=== PATIENT | male | born 1985 | race African-American/Black ===

== ENCOUNTER 2019-05-03 09:49 | Emergency (ER) | payer SELFPAY ==
[2019-05-03 10:55] LABS: Absolute Lymphocytes (CBC) 0.5 K/uL (0.7-4.9); Basophils % 0.2 % (0-1.3); Lymphocytes % 8.1 % (15.3-44.8); MPV 7.8 fL (7.6-11.3); RBC Red Blood Cell Count 4.58 M/uL (4.33-5.43)
[2019-05-03] MEDS ORDERED: KETOROLAC 30 MG/ML INJ ONE (11:04)
[2019-05-03] MEDS ORDERED: dexAMETHasone 4 MG/ML VIAL ONE (11:04)
[2019-05-03] MEDS ORDERED: NA CHLORIDE 0.9% 1,000 ML ONE (11:05)
[2019-05-03 11:12] LABS: ALT/SGPT 20 U/L (12-78); AST/SGOT 19 U/L (15-37); Albumin 3.8 g/dL (3.4-5.0); Alkaline Phosphatase 72 U/L (45-117); BUN Blood Urea Nitrogen 8 mg/dL (7-18); Bicarbonate 30 mmol/L (21-32); Bilirubin Direct 0.1 mg/dL (0-0.2); Bilirubin Total 0.2 mg/dL (0.2-1.0); Glucose Level 83 mg/dL (74-106); Potassium 4.3 mmol/L (3.5-5.1); Protein, Total 7.1 g/dL (6.4-8.2); Sodium Level 138 mmol/L (136-145)
--- NOTE | 2019-05-03 11:50 | EDPHYS ---
Physician Documentation [facility] Name: Elmer Sanderson Age: 33 yrs Sex: Male : 1985 Arrival Date: 05/03/2019 Time: 09:53 Bed 19 Private MD: ED Physician Esdras Cates HPI: 05/03 10:52 This 33 yrs old Black Male presents to ER via Ambulatory with complaints of Neck Pain, jr8 >24Hrs Old, Neck Swelling, Fever. 10:52 The patient or guardian complains of decreased range of motion, pain. The symptoms are jr8 located on the left trapezius and shoulder. Onset: The symptoms/episode began/occurred suddenly, 2 week(s) ago. Context: The neck injury/problem resulted from from unknown cause. Associated signs and symptoms: The patient has no apparent associated signs or symptoms. The pain does not radiate. Modifying factors: The symptoms are alleviated by nothing. the symptoms are aggravated by movement, pressure. Severity of symptoms: At their worst the symptoms were moderate, in the emergency department the symptoms are unchanged. The patient has not experienced similar symptoms in the past. The patient has not recently seen a physician. Patient stated that he was tensing and mireles left shoulder in odd position for prolonged period of time while getting a tattoo completed about two weeks ago. Now having pain to shoulder and back that will not go away. Stated that last night started to feel bad as well. Started with fever and flu like symptoms . Historical: - Allergies: 09:55 Codeine; rb1 - Home Meds: 09:55 None [Active]; rb1 - PMHx: 09:55 Asthma; Hypertension; rb1 - PSHx: 09:55 None; rb1 - Immunization history:: Adult Immunizations up to date. - Coronavirus screen:: The patient has NOT traveled to [place] in the past 14 days. The patient has NOT had contact with known/suspected case of Coronavirus?. - Social history:: Smoking status: Patient reports the use of cigarette tobacco products, smokes one pack cigarettes per day. - Ebola Screening: : Patient negative for fever greater than or equal to 101.5 degrees Fahrenheit, and additional compatible Ebola Virus Disease symptoms. ROS: 10:52 Eyes: Negative for injury, pain, redness, and discharge, Neck: Negative for injury, jr8 pain, and swelling, Cardiovascular: Negative for chest pain, palpitations, and edema, Respiratory: Negative for shortness of breath, cough, wheezing, and pleuritic chest pain, Abdomen/GI: Negative for abdominal pain, nausea, vomiting, diarrhea, and constipation, Skin: Negative for injury, rash, and discoloration, Neuro: Negative for headache, weakness, numbness, tingling, and seizure. 10:52 Constitutional: Positive for body aches, chills, fever. 10:52 ENT: Positive for rhinorrhea, sinus congestion. 10:52 Back: Positive for pain at rest, pain with movement, of the left trapezius and left scapular area. 10:52 MS/extremity: Positive for pain, tenderness, of the left shoulder . Exam: 10:52 Head/Face: Normocephalic, atraumatic. Eyes: Pupils equal round and reactive to light, jr8 extra-ocular motions intact. Lids and lashes normal. Conjunctiva and sclera are non-icteric and not injected. Cornea within normal limits. Periorbital areas with no swelling, redness, or edema. ENT: Nares patent. No nasal discharge, no septal abnormalities noted. Tympanic membranes are normal and external auditory canals are clear. Oropharynx with no redness, swelling, or masses, exudates, or evidence of obstruction, uvula midline. Mucous membranes moist. Neck: Trachea midline, no thyromegaly or masses palpated, and no cervical lymphadenopathy. Supple, full range of motion without nuchal rigidity, or vertebral point tenderness. No Meningismus. Chest/axilla: Normal chest wall appearance and motion. Nontender with no deformity. No lesions are appreciated. Cardiovascular: Regular rate and rhythm with a normal S1 and S2. No gallops, murmurs, or rubs. Normal PMI, no JVD. No pulse deficits. Respiratory: Lungs have equal breath sounds bilaterally, clear to auscultation and percussion. No rales, rhonchi or wheezes noted. No increased work of breathing, no retractions or nasal flaring. Abdomen/GI: Soft, non-tender, with normal bowel sounds. No distension or tympany. No guarding or rebound. No evidence of tenderness throughout. Skin: Warm, dry with normal turgor. Normal color with no rashes, no lesions, and no evidence of cellulitis. MS/ Extremity: Pulses equal, no cyanosis. Neurovascular intact. Full, normal range of motion. Neuro: Awake and alert, GCS 15, oriented to person, place, time, and situation. Cranial nerves II-XII grossly intact. Motor strength 5/5 in all extremities. Sensory grossly intact. Cerebellar exam normal. Normal gait. 10:52 Back: pain, that is moderate, of the left trapezius and left scapular area, ROM is painful, normal spinal alignment noted, CVA tenderness, is absent, muscle spasm, is appreciated in the left trapezius. Vital Signs: 09:55 BP 130 / 83; Pulse 89; Resp 17; Temp 98.4(O); Pulse Ox 100% on R/A; Weight 72.57 kg rb1 (R); Height 5 ft. 5 in. (165.10 cm) (R); Pain 10/10; 11:31 BP 104 / 70; Pulse 88; Resp 19; Pulse Ox 99% on R/A; rb1 12:15 BP 106 / 71; Pulse 83; Resp 18; Pulse Ox 99% on R/A; rb1 09:55 Body Mass Index 26.63 (72.57 kg, 165.10 cm) rb1 MDM: 09:56 Patient medically screened. jr8 11:30 Differential diagnosis: Cervical Raiculopathy cervical strain, cellulitis, muscle jr8 spasm. Data reviewed: vital signs, nurses notes, lab test result(s), Flu: positive. Data interpreted: Pulse oximetry: on room air is 100 %. Interpretation: normal. Counseling: I had a detailed discussion with the patient and/or guardian regarding: the historical points, exam findings, and any diagnostic results supporting the discharge/admit diagnosis, lab results, the need for outpatient follow up, a family practitioner, to return to the emergency department if symptoms worsen or persist or if there are any questions or concerns that arise at home. Response to treatment: the patient's symptoms have markedly improved after treatment, patient is well hydrated. 05/03 10:31 Order name: CBC with Diff 05/03 10:31 Order name: Basic Metabolic Panel; Complete Time: 11:19 05/03 10:31 Order name: LFT's; Complete Time: 11:05/03 10:31 Order name: Influenza Screen (a \T\ B); Complete Time: 11:30 05/03 10:57 Order name: CBC with Automated Diff EDUT 05/03 10:31 Order name: IV; Complete Time: 10:47 Administered Medications: 10:50 Drug: NS 0.9% 1000 ml Route: IV; Rate: 1000 ml; Site: right antecubital; rb1 11:56 Follow up: IV Status: Completed infusion rb1 10:50 Drug: TORadol - Ketorolac 15 mg Route: IVP; Site: right antecubital; rb1 11:00 Follow up: Response: No adverse reaction rb1 10:50 Drug: Decadron - Dexamethasone 10 mg Route: IVP; Site: right antecubital; rb1 11:05 Follow up: Response: No adverse reaction rb1 11:30 Drug: Robaxin 1 grams Route: IVPB; Infused Over: 1 hrs; Site: right antecubital; rb1 12:30 Follow up: Response: No adverse reaction; Pain is decreased; IV Status: Completed rb1 infusion Disposition: 13:05 Co-signature as Attending Physician, Esdras Cates MD. rn Disposition: 05/03/19 11:50 Discharged to Home. Impression: Influenza due to certain identified influenza viruses, Muscle spasm. - Condition is Stable. - Discharge Instructions: Influenza, Adult, Muscle Cramps and Spasms. - Prescriptions for Ibuprofen 800 mg Oral Tablet - take 1 tablet by ORAL route every 12 hours As needed take with food; 20 tablet. Robaxin 500 mg Oral Tablet - take 2 tablet by ORAL route every 6 hours As needed; 40 tablet. Tamiflu 75 mg Oral Capsule - take 1 capsule by ORAL route every 12 hours for 5 days; 10 capsule. Medrol (Saran) 4 mg Oral Tablets, Dose Pack - take 1 tablet by ORAL route as directed - follow package instructions; 1 packet. Albuterol Sulfate 90 mcg/actuation - inhale 1-2 puff by INHALATION route every 4-6 hours; 1 Inhaler. - Medication Reconciliation Form, Thank You Letter, Antibiotic Education, Prescription Opioid Use, Work release form form. - Follow up: Private Physician; When: 1 week; Reason: Recheck today's complaints, Continuance of care, Re-evaluation by your physician. - Problem is new. - Symptoms have improved. Signatures: Dispatcher [employer] [facility] Esdras Cates MD MD rn Roszak, Josh, PA PA jr8 Willow Rosales, RN RN rb1 Corrections: (The following items were deleted from the chart) 12:43 11:50 05/03/2019 11:50 Discharged to Home. Impression: Influenza due to certain rb1 identified influenza viruses; Muscle spasm. Condition is Stable. Forms are Medication Reconciliation Form, Thank You Letter, Antibiotic Education, Prescription Opioid Use. Follow up: Private Physician; When: 1 week; Reason: Recheck today's complaints, Continuance of care, Re-evaluation by your physician. Problem is new. Symptoms have improved. jr8
--- NOTE | 2019-05-03 11:50 | ER ---
Nurse's Notes [facility] Name: Elmer Sanderson Age: 33 yrs Sex: Male : 1985 Arrival Date: 05/03/2019 Time: 09:53 Bed 19 Private MD: Diagnosis: Influenza due to certain identified influenza viruses;Muscle spasm Presentation: 05/03 09:55 Presenting complaint: Patient states: Has had bodyaches for 3 weeks. Denies nausea, rb1 vomiting, diarrhea. reports fever, chills, sore throat. Transition of care: patient was not received from another setting of care. Onset of symptoms was April 11, 2019. Risk Assessment: Do you want to hurt yourself or someone else? Patient reports no desire to harm self or others. Initial Sepsis Screen: Does the patient meet any 2 criteria? No. Patient's initial sepsis screen is negative. Does the patient have a suspected source of infection? Yes: Productive cough/pneumonia. Care prior to arrival: None. 09:55 Method Of Arrival: Ambulatory rb1 09:55 Acuity: JANICE 3 rb1 Triage Assessment: 09:55 General: Appears in no apparent distress. comfortable, Behavior is calm, cooperative, rb1 Reports chills for fever for feeling ill for x 3 weeks. Pain: Complains of pain in left shoulder, sore throat. EENT: Reports pain in throat. Neuro: Level of Consciousness is awake, alert, obeys commands, Oriented to person, place, time, situation. Cardiovascular: Capillary refill < 3 seconds is brisk in bilateral fingers. Respiratory: Reports shortness of breath cough that is productive, yellow sputum. GI: No signs and/or symptoms were reported involving the gastrointestinal system. : No signs and/or symptoms were reported regarding the genitourinary system. Derm: Skin is dry, Skin is normal, Skin temperature is warm Parent/caregiver reports the patient having He got a new tattoo three weeks ago and now he has pain in his left shoulder and it hurts to move his arm. Musculoskeletal: Reports pain in left shoulder Pain is 10 out of 10 on a pain scale. Historical: - Allergies: : Codeine; rb1 - Home Meds: : None [Active]; rb1 - PMHx: : Asthma; Hypertension; rb1 - PSHx: : None; rb1 - Immunization history:: Adult Immunizations up to date. - Coronavirus screen:: The patient has NOT traveled to [place] in the past 14 days. The patient has NOT had contact with known/suspected case of Coronavirus?. - Social history:: Smoking status: Patient reports the use of cigarette tobacco products, smokes one pack cigarettes per day. - Ebola Screening: : Patient negative for fever greater than or equal to 101.5 degrees Fahrenheit, and additional compatible Ebola Virus Disease symptoms. Screenin:55 Abuse screen: Denies threats or abuse. Nutritional screening: No deficits noted. rb1 Tuberculosis screening: No symptoms or risk factors identified. Fall Risk None identified. Assessment: 09:55 General: See triage assessment. rb1 10:50 Reassessment: Patient appears in no apparent distress at this time. No changes from rb1 previously documented assessment. 11:34 Reassessment: Patient appears in no apparent distress at this time. Patient and/or rb1 family updated on plan of care and expected duration. Pain level reassessed. Patient is alert, oriented x 3, equal unlabored respirations, skin warm/dry/pink. 11:54 Reassessment: Discharge pending due to Robaxin infusing. rb1 12:15 Reassessment: Patient appears in no apparent distress at this time. Patient and/or rb1 family updated on plan of care and expected duration. Pain level reassessed. Patient is alert, oriented x 3, equal unlabored respirations, skin warm/dry/pink. Pt. is laughing with his girlfriend. Vital Signs: 09:55 BP 130 / 83; Pulse 89; Resp 17; Temp 98.4(O); Pulse Ox 100% on R/A; Weight 72.57 kg rb1 (R); Height 5 ft. 5 in. (165.10 cm) (R); Pain 10/10; 11:31 BP 104 / 70; Pulse 88; Resp 19; Pulse Ox 99% on R/A; rb1 12:15 BP 106 / 71; Pulse 83; Resp 18; Pulse Ox 99% on R/A; rb1 09:55 Body Mass Index 26.63 (72.57 kg, 165.10 cm) [facility] ED Course: 09:53 Patient arrived in ED. fj1 09:55 Willow Rosales, RN is Primary Nurse. rb1 09:55 Arm band placed on right wrist. rb1 09:55 Patient has correct armband on for positive identification. Bed in low position. Call rb1 light in reach. Side rails up X 1. Pulse ox on. NIBP on. Warm blanket given. 09:56 Garrick Vásquez PA is PHCP. jr8 09:56 Esdras Cates MD is Attending Physician. jr8 10:05 Triage completed. rb1 10:43 Initial lab(s) drawn, by me, sent to lab. Flu and/or RSV swab sent to lab. Inserted dh3 saline lock: 20 gauge in right antecubital area, using aseptic technique. Blood collected. 12:35 No provider procedures requiring assistance completed. rb1 12:35 IV discontinued, intact, bleeding controlled, No redness/swelling at site. Pressure rb1 dressing applied. Administered Medications: 10:50 Drug: NS 0.9% 1000 ml Route: IV; Rate: 1000 ml; Site: right antecubital; rb1 11:56 Follow up: IV Status: Completed infusion rb1 10:50 Drug: TORadol - Ketorolac 15 mg Route: IVP; Site: right antecubital; rb1 11:00 Follow up: Response: No adverse reaction rb1 10:50 Drug: Decadron - Dexamethasone 10 mg Route: IVP; Site: right antecubital; rb1 11:05 Follow up: Response: No adverse reaction rb1 11:30 Drug: Robaxin 1 grams Route: IVPB; Infused Over: 1 hrs; Site: right antecubital; rb1 12:30 Follow up: Response: No adverse reaction; Pain is decreased; IV Status: Completed rb1 infusion Outcome: 11:50 Discharge ordered by . jr8 12:35 Discharged to home ambulatory, with significant other. rb1 12:35 Condition: stable 12:35 Discharge instructions given to patient, Instructed on discharge instructions, follow up and referral plans. medication usage. 12:35 Patient left the ED. rb1 Signatures: Garrick Vásquez PA PA jr8 Willow Rosales RN RN [facility] Annmarie Moon 3 Cj Nava fj1 Corrections: (The following items were deleted from the chart) 12:43 12:43 Patient left the ED. rb1 rb1
[2019-05-03 12:58] VITALS: TEMP 98.4
[2019-05-03 13:04] VITALS: BP 106/71; O2SAT 99
== END 2019-05-03 12:43 | disposition home or self-care (01) ==
LOC: ER 09:49
DX: J10.1 Influenza due to other identified influenza virus with other respiratory manifestations (principal); M62.838 Other muscle spasm; I10 Essential (primary) hypertension; F17.210 Nicotine dependence, cigarettes, uncomplicated; Z88.5 Allergy status to narcotic agent
CPT/HCPCS: 36415; 80048; 80076; 85025; 87804; 96361; 96365; 96375; 99284; J2800; J7030

== ENCOUNTER 2019-11-21 01:47 | Emergency (ER) | payer SELFPAY ==
[2019-11-21] MEDS ORDERED: KETOROLAC 30 MG/ML INJ ONE (02:18)
[2019-11-21] MEDS ORDERED: NA CHLORIDE 0.9% 1,000 ML ONE (02:18)
[2019-11-21] MEDS ORDERED: DIPHENHYDRAMINE 50 MG/ML VIAL ONE (02:18)
[2019-11-21] MEDS ORDERED: ONDANSETRON 4 MG/2 ML VIAL ONE (02:18)
--- NOTE | 2019-11-21 03:38 | EDPHYS ---
Physician Documentation [facility] Name: Elmer Sanderson Age: 34 yrs Sex: Male : 1985 Arrival Date: 11/21/2019 Time: 01:51 Bed 18 Private MD: ED Physician Ash Lora HPI: 11/20 03:05 This 34 yrs old Black Male presents to ER via Wheelchair with complaints of Headache. tw4 03:05 The patient complains of pain to the left orthodoxy. The patient describes the headache as tw4 pounding, a pressure. Onset: The symptoms/episode began/occurred just prior to arrival. 03:06 Associated signs and symptoms: The patient has no apparent associated signs or tw4 symptoms. Severity of symptoms: At its worst the pain was severe, in the emergency department the pain is unchanged. Headache History: The patient has had previous headaches and this one is similar to previous episodes, and this one is more severe than previous episodes. The symptoms are alleviated by nothing. the symptoms are aggravated by lights, movement, noise. The patient has not experienced similar symptoms in the past. Historical: - Allergies: 02:06 Codeine; lp1 - Home Meds: 02:06 Albuterol Inhl [Active]; lp1 - PMHx: 02:06 Asthma; Hypertension; lp1 - PSHx: 02:06 None; lp1 - Immunization history:: Adult Immunizations up to date. - Social history:: Smoking status: Patient reports the use of cigarette tobacco products, smokes one-half pack cigarettes per day. ROS: 03:06 Constitutional: Negative for fever, chills, and weight loss, Eyes: Negative for injury, tw4 pain, redness, and discharge, Cardiovascular: Negative for chest pain, palpitations, and edema, Respiratory: Negative for shortness of breath, cough, wheezing, and pleuritic chest pain, Abdomen/GI: Negative for abdominal pain, nausea, vomiting, diarrhea, and constipation, Back: Negative for injury and pain, MS/Extremity: Negative for injury and deformity, Skin: Negative for injury, rash, and discoloration. 03:06 Neuro: Positive for headache, Negative for altered mental status, dizziness, gait disturbance, numbness, seizure activity, speech changes, syncope, near syncope, tingling, tinnitus, tremor, visual changes, weakness. Exam: 03:06 Constitutional: This is a well developed, well nourished patient who is awake, alert, tw4 and in no acute distress. Head/Face: Normocephalic, atraumatic. Chest/axilla: Normal chest wall appearance and motion. Nontender with no deformity. No lesions are appreciated. Cardiovascular: Regular rate and rhythm with a normal S1 and S2. No gallops, murmurs, or rubs. Normal PMI, no JVD. No pulse deficits. Respiratory: Lungs have equal breath sounds bilaterally, clear to auscultation and percussion. No rales, rhonchi or wheezes noted. No increased work of breathing, no retractions or nasal flaring. Abdomen/GI: Soft, non-tender, with normal bowel sounds. No distension or tympany. No guarding or rebound. No evidence of tenderness throughout. Skin: Warm, dry with normal turgor. Normal color with no rashes, no lesions, and no evidence of cellulitis. MS/ Extremity: Pulses equal, no cyanosis. Neurovascular intact. Full, normal range of motion. Neuro: Awake and alert, GCS 15, oriented to person, place, time, and situation. Cranial nerves II-XII grossly intact. Motor strength 5/5 in all extremities. Sensory grossly intact. Cerebellar exam normal. Normal gait. Vital Signs: 02:02 BP 137 / 88; Pulse 92; Resp 18; Temp 97.7(TE); Pulse Ox 100% on R/A; Weight 73.03 kg lp1 (R); Pain 10/10; 02:45 BP 137 / 88; Pulse 86; Resp 16; Pulse Ox 100% on R/A; jb4 Yusef Coma Score: 03:06 Eye Response: spontaneous(4). Verbal Response: oriented(5). Motor Response: obeys tw4 commands(6). Total: 15. MDM: 02:47 Patient medically screened. tw4 03:06 Data reviewed: vital signs, nurses notes. Data interpreted: Pulse oximetry: tw4 Interpretation: normal. Administered Medications: 02:12 Drug: NS 0.9% 1000 ml Route: IV; Rate: 1000 ml; Site: right forearm; jb4 03:00 Follow up: Response: No adverse reaction; IV Status: Completed infusion; IV Intake: jb4 1000ml 02:13 Drug: TORadol 30 mg Route: IVP; Site: right forearm; jb4 03:11 Follow up: Response: No adverse reaction; Pain is decreased jb4 02:14 Drug: Benadryl 25 mg Route: IVP; Site: right forearm; jb4 03:11 Follow up: Response: No adverse reaction; Pain is decreased jb4 02:15 Drug: Zofran (Ondansetron) 4 mg Route: IVP; Site: right forearm; jb4 03:11 Follow up: Response: No adverse reaction jb4 Disposition: 11/21/19 03:37 Discharged to Home. Impression: Migraine without aura, not intractable. - Condition is Stable. - Discharge Instructions: Migraine Headache. - Prescriptions for Fiorinal 50- 325-40 mg Oral Capsule - take 1 capsule by ORAL route every 4 hours As needed - not to exceed 6 capsules per day; 20 capsule. Zofran 4 mg Oral Tablet - take 1 tablet by ORAL route every 12 hours As needed; 6 tablet. - Medication Reconciliation Form, Thank You Letter, Antibiotic Education, Prescription Opioid Use form. - Follow up: Private Physician; When: Upon discharge from the Emergency Department; Reason: Recheck today's complaints, Continuance of care, Re-evaluation by your physician. - Problem is new. - Symptoms have improved. Signatures: Loretta Jimenez RN RN lp1 Elijah Martins RN RN jb4 Ash Lora MD MD tw4 Corrections: (The following items were deleted from the chart) 04:02 03:37 11/21/2019 03:37 Discharged to Home. Impression: Migraine without aura, not jb4 intractable. Condition is Stable. Forms are Medication Reconciliation Form, Thank You Letter, Antibiotic Education, Prescription Opioid Use. Follow up: Private Physician; When: Upon discharge from the Emergency Department; Reason: Recheck today's complaints, Continuance of care, Re-evaluation by your physician. Problem is new. Symptoms have improved. tw4
--- NOTE | 2019-11-21 03:38 | ER ---
Nurse's Notes [facility] Name: Elmer Sanderson Age: 34 yrs Sex: Male : 1985 Arrival Date: 11/21/2019 Time: 01:51 Bed 18 Private MD: Diagnosis: Migraine without aura, not intractable Presentation: 11/20 02:02 Chief complaint: Patient states: Woken up out of sleep with headache about 30 minutes lp1 ago; States hx of migraines, this episode more severe; complaint of light and noise sensitivity. Coronavirus screen: Client denies travel out of the [place] in the last 14 days. At this time, the client does not indicate any symptoms associated with coronavirus-19. Ebola Screen: No symptoms or risks identified at this time. Initial Sepsis Screen: Does the patient meet any 2 criteria? No. Patient's initial sepsis screen is negative. Does the patient have a suspected source of infection? No. Patient's initial sepsis screen is negative. Risk Assessment: Do you want to hurt yourself or someone else? Patient reports no desire to harm self or others. Onset of symptoms was November 21, 2019 at 01:30. 02:02 Method Of Arrival: Wheelchair lp1 02:02 Acuity: JANICE 3 lp1 Historical: - Allergies: 02:06 Codeine; lp1 - Home Meds: 02:06 Albuterol Inhl [Active]; lp1 - PMHx: 02:06 Asthma; Hypertension; lp1 - PSHx: 02:06 None; lp1 - Immunization history:: Adult Immunizations up to date. - Social history:: Smoking status: Patient reports the use of cigarette tobacco products, smokes one-half pack cigarettes per day. Screenin:07 Abuse screen: Denies threats or abuse. Denies injuries from another. Nutritional lp1 screening: No deficits noted. Tuberculosis screening: No symptoms or risk factors identified. Fall Risk None identified. Assessment: 02:00 General: Appears in no apparent distress. uncomfortable, Behavior is cooperative, jb4 anxious, crying. Pain: Complains of pain in right voodoo, left voodoo and neck Pain does not radiate. Pain currently is 10 out of 10 on a pain scale. Quality of pain is described as throbbing. Neuro: Level of Consciousness is awake, alert, obeys commands, Oriented to person, place, time, situation. Cardiovascular: Patient's skin is warm and dry. Respiratory: Airway is patent Respiratory effort is even, unlabored, Respiratory pattern is regular, symmetrical. GI: No signs and/or symptoms were reported involving the gastrointestinal system. : No signs and/or symptoms were reported regarding the genitourinary system. EENT: No signs and/or symptoms were reported regarding the EENT system. Derm: Skin is intact, Skin is dry, Skin is normal, Skin temperature is warm. Musculoskeletal: Circulation, motion, and sensation intact. Range of motion: intact in all extremities. 02:44 Reassessment: Patient and/or family updated on plan of care and expected duration. Pain jb4 level reassessed. PT is resting comfortably in bed with eyes closed, respirations are even and unlabored with no s/s of pain or distress noted. 03:30 Reassessment: Patient appears in no apparent distress at this time. Patient and/or jb4 family updated on plan of care and expected duration. Pain level reassessed. Patient is alert, oriented x 3, equal unlabored respirations, skin warm/dry/pink. Pt reports feeling much better and is now able to open his eyes without pain. Patient states feeling better. Patient states symptoms have improved. 04:00 Reassessment: Patient appears in no apparent distress at this time. Patient and/or jb4 family updated on plan of care and expected duration. Pain level reassessed. Patient is alert, oriented x 3, equal unlabored respirations, skin warm/dry/pink. Pt verbalized understanding of D/c and follow up instructions. Denies questions or concerns. Given a list of family providers in the area, assisted to vehicle via wheelchair. Vital Signs: 02:02 BP 137 / 88; Pulse 92; Resp 18; Temp 97.7(TE); Pulse Ox 100% on R/A; Weight 73.03 kg lp1 (R); Pain 10/10; 02:45 BP 137 / 88; Pulse 86; Resp 16; Pulse Ox 100% on R/A; jb4 Yusef Coma Score: 03:06 Eye Response: spontaneous(4). Verbal Response: oriented(5). Motor Response: obeys tw4 commands(6). Total: 15. ED Course: 01:51 Patient arrived in ED. cf2 01:52 Madison, Ash, MD is Attending Physician. tw4 02:00 Inserted saline lock: 20 gauge in right forearm, using aseptic technique. jb4 02:04 Triage completed. lp1 02:04 Arm band placed on. lp1 02:07 Elijah Martins, RN is Primary Nurse. jb4 02:07 Patient has correct armband on for positive identification. lp1 04:00 No provider procedures requiring assistance completed. IV discontinued, intact, jb4 bleeding controlled, No redness/swelling at site. Pressure dressing applied. Administered Medications: 02:12 Drug: NS 0.9% 1000 ml Route: IV; Rate: 1000 ml; Site: right forearm; jb4 03:00 Follow up: Response: No adverse reaction; IV Status: Completed infusion; IV Intake: jb4 1000ml 02:13 Drug: TORadol 30 mg Route: IVP; Site: right forearm; jb4 03:11 Follow up: Response: No adverse reaction; Pain is decreased jb4 02:14 Drug: Benadryl 25 mg Route: IVP; Site: right forearm; jb4 03:11 Follow up: Response: No adverse reaction; Pain is decreased jb4 02:15 Drug: Zofran (Ondansetron) 4 mg Route: IVP; Site: right forearm; jb4 03:11 Follow up: Response: No adverse reaction jb4 Intake: 03:00 IV: 1000ml; Total: 1000ml. jb4 Outcome: 03:37 Discharge ordered by . tw4 04:00 Discharged to home via wheelchair, with family. jb4 04:00 Condition: stable 04:00 Discharge instructions given to patient, Instructed on discharge instructions, follow up and referral plans. medication usage, Demonstrated understanding of instructions, follow-up care, medications, Prescriptions given X 2. 04:02 Patient left the ED. jb4 Signatures: Loretta Jimenez RN RN lp1 Elijah Martins RN RN jb4 Ash Lora MD MD tw4 Lisa Dasilva cf2 Corrections: (The following items were deleted from the chart) 04:03 04:03 IV Status: Completed infusion; IV Intake: 1000ml jb4 jb4
[2019-11-21 04:12] VITALS: BP 137/88; TEMP 97.7; O2SAT 100
== END 2019-11-21 04:02 | disposition home or self-care (01) ==
LOC: ER 01:47
DX: G43.009 Migraine without aura, not intractable, without status migrainosus (principal); I10 Essential (primary) hypertension; J45.909 Unspecified asthma, uncomplicated; F17.210 Nicotine dependence, cigarettes, uncomplicated; Z88.5 Allergy status to narcotic agent
CPT/HCPCS: 96361; 96374; 96375; 99283; J1200; J2405; J7030

== ENCOUNTER → 2023-04-26 | Emergency (ER) | payer OTHER, SELFPAY ==
[~2023-04-26] MED LIST: NA CHLORIDE 0.9% 1,000 ML ONE; ONDANSETRON 4 MG (ODT) TAB ONE
[2023-04-26 23:20] LABS: Absolute Lymphocytes (CBC) 1.8 K/uL (0.7-4.9); Hematocrit 43.2 % (39.6-49.0); Lymphocytes % 33.5 % (15.3-44.8); MCV 94.6 fL (80-100); MPV 7.1 fL (7.6-11.3); Platelets 278 thou/uL (152-406); RBC Red Blood Cell Count 4.57 M/uL (4.33-5.43)
[2023-04-26 23:42] LABS: Albumin 3.7 g/dL (3.4-5.0); Bilirubin Total 0.2 mg/dL (0.2-1.0); Potassium 3.8 mEq/L (3.5-5.1); Protein, Total 7.4 g/dL (6.4-8.2)
--- NOTE | 2023-04-27 00:46 | EDPHYS ---
Physician Documentation [facility] Name: Elmer Sanderson Age: 37 yrs Sex: Male : 1985 Arrival Date: 04/26/2023 Time: 22:34 Bed 7 Private MD: ED Physician Toby Sanchez HPI: 04/26 23:08 This 37 yrs old Black Male presents to ER via Ambulatory with complaints of Bloody sb4 Stools. 23:08 The patient presents to the emergency department with bleeding from the rectum/anus, sb4 that is mild. Onset: The symptoms/episode began/occurred 2 week(s) ago. Associate signs and symptoms: Pertinent positives: abdominal pain in the suprapubic area, right lower quadrant and left lower quadrant, diarrhea, fever, nausea. The patient has not experienced similar symptoms in the past. The patient has not recently seen a physician. Historical: - Allergies: 22:58 Codeine; pf1 - PMHx: 22:58 Asthma; Hypertension; pf1 22:58 IBS; pf1 - PSHx: 22:58 None; pf1 - Immunization history:: Adult Immunizations up to date, Client reports receiving the 2nd dose of the Covid vaccine, pfizer and Moderna Last tetanus immunization: < 10 years ago Flu vaccine is not up to date. - Social history:: Smoking status: Patient reports the use of cigarette tobacco products, cigars, Patient uses alcohol, but reports only rare drinking. Patient/guardian denies using street drugs, Smoking status: Reported history of juuling and/or vaping. ROS: 23:08 Constitutional: Positive for fever, sb4 23:08 Abdomen/GI: Positive for abdominal pain, nausea, diarrhea, rectal bleeding, 23:08 All other systems are negative, 04/27 00:47 Skin: Negative for injury, rash, and discoloration, sb4 Exam: 04/26 23:08 Constitutional: This is a well developed, well nourished patient who is awake, alert, sb4 and in no acute distress. Head/Face: Normocephalic, atraumatic. Eyes: Extra-ocular motions intact. Periorbital areas with no swelling, redness, or edema. ENT: Mucous membranes moist. Cardiovascular: Regular rate and rhythm with a normal S1 and S2. Respiratory: Lungs have equal breath sounds bilaterally, clear to auscultation and percussion. No rales, rhonchi or wheezes noted. No increased work of breathing, no retractions or nasal flaring. Abdomen/GI: Soft, non-tender, no distension. Skin: Warm, dry with normal turgor. Normal color with no rashes, no lesions, and no evidence of cellulitis. MS/ Extremity: Pulses equal, no cyanosis. Neurovascular intact. Full, normal range of motion. Neuro: Awake and alert, GCS 15, oriented to person, place, time, and situation. Motor strength 5/5 in all extremities. Sensory grossly intact. Vital Signs: 22:52 BP 133 / 84; Pulse 96; Resp 16; Temp 98; Pulse Ox 100% on R/A; Weight 70.31 kg; Height pf1 5 ft. 5 in. ; Pain 4/10; 23:17 BP 133 / 88; Pulse 96; Resp 17 S; Pulse Ox 100% on R/A; ha1 23:41 BP 131 / 88; Pulse 100; Resp 17 S; Pulse Ox 100% on R/A; ha1 04/27 00:16 BP 101 / 88; Pulse 100; Resp 17 S; Pulse Ox 100% on R/A; ha1 00:53 BP 129 / 82; Pulse 97; Resp 16 S; Temp 98.4(O); Pulse Ox 100% on R/A; lg3 04/26 22:52 Body Mass Index 25.79 (70.31 kg, 165.1 cm) pf1 04/26 22:52 Pain Scale: Adult pf1 MDM: 04/26 23:02 Patient medically screened. sb4 23:08 Differential diagnosis: hemorrhoids, abscess, colitis, proctitis, diverticulitis. sb4 04/27 00:44 Data reviewed: vital signs, nurses notes, lab test result(s), radiologic studies, and sb4 as a result, I will discharge patient. Care significantly affected by the following chronic conditions: Hypertension. 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 04/26 23:08 Order name: CBC with Diff; Complete Time: 23:26 sb4 04/26 23:08 Order name: CMP; Complete Time: 23:43 sb4 04/26 23:08 Order name: Lipase; Complete Time: 23:43 sb4 04/26 23:08 Order name: CT Abd/Pelvis - IV Contrast Only sb4 04/26 23:08 Order name: IV Saline Lock; Complete Time: 23:18 sb4 04/26 23:08 Order name: Labs collected and sent; Complete Time: 23:18 sb4 Administered Medications: 04/26 23:18 Drug: NS 0.9% IV 1000 ml IV at 1 bolus Per protocol; 1000 mL bolus Route: IV; Rate: 1 ha1 bolus; Site: right antecubital; 04/27 00:48 Follow up: IV Status: Completed infusion; IV Intake: 1000ml lg3 00:48 Drug: Ondansetron Oral Disintegrating Tablet Oral Disintegrating Tablet 4 mg PO once lg3 Route: PO; 00:55 Follow up: Response: No adverse reaction; Marked relief of symptoms lg3 Disposition Summary: 04/27/23 00:46 Discharge Ordered Notes: Location: Home sb4 Problem: an ongoing problem sb4 Symptoms: are unchanged sb4 Condition: Stable sb4 Diagnosis - proctocolitis sb4 Followup: sb4 - With: Víctor Sanford MD - When: As needed - Reason: Recheck today's complaints, Re-evaluation by your physician Discharge Instructions: - Discharge Summary Sheet sb4 - Proctitis sb4 - Colitis sb4 Forms: - Medication Reconciliation Form sb4 - Thank You Letter sb4 - Antibiotic Education sb4 - Prescription Opioid Use sb4 - Patient Portal Instructions sb4 - Leadership Thank You Letter sb4 Prescriptions: - Flagyl 500 mg Oral Tablet - take 1 tablet ORAL route every 12 hours for 7 days; 14 tablet; Refills: 0, sb4 Product Selection Permitted - Zofran 4 mg Oral Tablet - take 1 tablet ORAL route every 12 hours As needed; 20 tablet; Refills: 0, sb4 Product Selection Permitted - Cipro 500 mg Oral Tablet - take 1 tablet ORAL route every 12 hours for 7 days; 14 tablet; Refills: 0, sb4 Product Selection Permitted Signatures: Dispatcher [employer] Quyen Nguyen RN RN lg3 Soledad Stubbs RN RN ha1 Jo Augustine, PASon PA-C sb4 Jeana Ortega, RN RN pf1
--- NOTE | 2023-04-27 00:46 | ER ---
Nurse's Notes [facility] Name: Elmer Sanderson Age: 37 yrs Sex: Male : 1985 Arrival Date: 04/26/2023 Time: 22:34 Bed 7 Private MD: Diagnosis: proctocolitis Presentation: 04/26 22:52 Chief complaint: Patient states: diarrhea with bright red blood in stool,onset 3 weeks pf1 ago with intermittent lower abdominal pain of 4,onset 1.5 weeks. Patient stated has a history of IBS. Coronavirus screen: Vaccine status: Patient reports receiving the 2nd dose of the covid vaccine. Client denies travel out of the [place] in the last 14 days. Client presents with at least one sign or symptom that may indicate coronavirus-19. Ebola Screen: Patient negative for fever greater than or equal to 101.5 degrees Fahrenheit, and additional compatible Ebola Virus Disease symptoms. Initial Sepsis Screen: Does the patient meet any 2 criteria? HR > 90 bpm. No. Patient's initial sepsis screen is negative. Does the patient have a suspected source of infection? No. Patient's initial sepsis screen is negative. Risk Assessment: Do you want to hurt yourself or someone else? Patient reports no desire to harm self or others. 22:52 Method Of Arrival: Ambulatory pf1 22:52 Acuity: JANICE 3 pf1 23:19 Onset of symptoms was April 18, 2023. ha1 Historical: - Allergies: 22:58 Codeine; pf1 - PMHx: 22:58 Asthma; Hypertension; pf1 22:58 IBS; pf1 - PSHx: 22:58 None; pf1 - Immunization history:: Adult Immunizations up to date, Client reports receiving the 2nd dose of the Covid vaccine, pfizer and Moderna Last tetanus immunization: < 10 years ago Flu vaccine is not up to date. - Social history:: Smoking status: Patient reports the use of cigarette tobacco products, cigars, Patient uses alcohol, but reports only rare drinking. Patient/guardian denies using street drugs, Smoking status: Reported history of juuling and/or vaping. Screenin:18 Abuse screen: Denies threats or abuse. Denies injuries from another. Nutritional ha1 screening: No deficits noted. Tuberculosis screening: No symptoms or risk factors identified. 04/27 00:53 [facility] ED Fall Risk Assessment (Adult) History of falling in the last 3 months, lg3 including since admission No falls in past 3 months (0 pts). Assessment: 04/26 23:00 General: Appears comfortable, Behavior is calm, cooperative. Pain: Complains of pain in ha1 left lower quadrant Pain does not radiate. Pain currently is 5 out of 10 on a pain scale. Quality of pain is described as crampy, Pain began over a week. Neuro: Level of Consciousness is awake, alert, obeys commands, Oriented to person, place, time, situation. Cardiovascular: Capillary refill < 3 seconds Patient's skin is warm and dry. Respiratory: Airway is patent Respiratory effort is even, unlabored, Respiratory pattern is regular, symmetrical. GI: Abdomen is flat, non-distended, Bowel sounds present X 4 quads. Reports lower abdominal pain, bloody stool. : No signs and/or symptoms were reported regarding the genitourinary system. Derm: No signs and/or symptoms reported regarding the dermatologic system. Skin is normal. Musculoskeletal: Circulation, motion, and sensation intact. Range of motion: intact in all extremities. 04/27 00:00 Reassessment: Patient and/or family updated on plan of care and expected duration. Pain ha1 level reassessed. Patient is alert, oriented x 3, equal unlabored respirations, skin warm/dry/pink. 00:53 Reassessment: Patient appears in no apparent distress at this time. Patient and/or lg3 family updated on plan of care and expected duration. Pain level reassessed. Patient is alert, oriented x 3, equal unlabored respirations, skin warm/dry/pink. Patient states feeling better. Vital Signs: 04/26 22:52 BP 133 / 84; Pulse 96; Resp 16; Temp 98; Pulse Ox 100% on R/A; Weight 70.31 kg; Height pf1 5 ft. 5 in. ; Pain 4/10; 23:17 BP 133 / 88; Pulse 96; Resp 17 S; Pulse Ox 100% on R/A; ha1 23:41 BP 131 / 88; Pulse 100; Resp 17 S; Pulse Ox 100% on R/A; ha1 04/27 00:16 BP 101 / 88; Pulse 100; Resp 17 S; Pulse Ox 100% on R/A; ha1 00:53 BP 129 / 82; Pulse 97; Resp 16 S; Temp 98.4(O); Pulse Ox 100% on R/A; lg3 02 22:52 Body Mass Index 25.79 (70.31 kg, 165.1 cm) pf1 02 22:52 Pain Scale: Adult pf1 ED Course: 04/26 22:42 Patient arrived in ED. gm2 22:43 Jo Augustine PA-C is PHCP. sb4 22:43 Toby Sanchez MD is Attending Physician. sb4 22:57 Triage completed. pf1 23:00 Patient has correct armband on for positive identification. Bed in low position. Call ha1 light in reach. Side rails up X 1. Adult w/ patient. 23:00 Arm band placed on right wrist. ha1 23:05 Inserted saline lock: 20 gauge in right antecubital area, using aseptic technique. ha1 Blood collected. 23:18 CBC with Diff Sent. ha1 23:18 CMP Sent. ha1 23:18 Lipase Sent. ha1 23:21 Radiology exam delayed due to lab results not completed at this time. (BUN/Creatinine). eh4 04/27 00:01 CT Abd/Pelvis - IV Contrast Only In Process Unspecified. EDMS 00:45 Víctor Sanford MD is Referral Physician. sb4 00:53 No provider procedures requiring assistance completed. IV discontinued, intact, lg3 bleeding controlled, No redness/swelling at site. Pressure dressing applied. Administered Medications: 04/26 23:18 Drug: NS 0.9% IV 1000 ml IV at 1 bolus Per protocol; 1000 mL bolus Route: IV; Rate: 1 ha1 bolus; Site: right antecubital; 02 00:48 Follow up: IV Status: Completed infusion; IV Intake: 1000ml lg3 00:48 Drug: Ondansetron Oral Disintegrating Tablet Oral Disintegrating Tablet 4 mg PO once lg3 Route: PO; 00:55 Follow up: Response: No adverse reaction; Marked relief of symptoms lg3 Medication: 04/26 23:19 VIS not applicable for this client. ha1 Intake: 04/27 00:48 IV: 1000ml; Total: 1000ml. lg3 Outcome: 00:46 Discharge ordered by . sb4 00:53 Discharged to home ambulatory, with significant other, lg3 00:53 Condition: stable 00:53 Discharge instructions given to patient, Instructed on discharge instructions, follow up and referral plans. medication usage, Demonstrated understanding of instructions, follow-up care, medications, Prescriptions given X 3, 00:55 Patient left the ED. lg3 Signatures: Dispatcher [employer] EDQuyen Hoyt RN RN lg3 Soledad Stubbs, RN RN ha1 Nicholas Campoverde 4 Jo Augustine, MARYCRUZ PASon garrison4 Jeana Ortega RN RN pf1 Debbie Decker 2
[2023-04-27 01:20] VITALS: O2SAT 100
[2023-04-27 01:43] VITALS: BP 129/82; TEMP 98.4
--- NOTE | 2023-04-27 22:02 | RAD REPORT ---
EXAM DESCRIPTION: CT - Abdomen Pelvis W Contrast - 04/27/2023 6:58 am CLINICAL HISTORY: 37 years Male rectal bleeding, diarrhea, lower abd pain TECHNIQUE: Contiguous axial images obtained through the abdomen and pelvis following intravenous con trast administration. Coronal and sagittal reformatted images provided. This CT exam was performed according to our departmental dose-optimization program, which includes on e or more of the following dose reduction techniques: automated exposure control, adjustment of the m A and/or kV according to patient size, and/or use of iterative reconstruction technique. COMPARISON: No prior exams provided for comparison. FINDINGS: Possible mild rectal wall thickening, diffuse. No other bowel wall thickening. No bowel ob struction, pneumatosis, free intraperitoneal air, abscess, or ascites. Normal appendix. The lung bases, liver, biliary tree, gallbladder, pancreas, spleen, adrenal glands, kidneys, urinary bladder, and osseous structures are normal. There is no bowel inflammation, obstruction, free intraperitoneal air, or ascites. The appendix is no rmal. IMPRESSION: Possible mild proctitis could be infectious or inflammatory. No bowel obstruction or per foration. Electronically signed by: Nori Phipps MD 04/27/2023 12:34 AM [employer] Due to temporary technical issues with the PACS/Fluency reporting system, reports are being signed by the in house radiologists without review as a courtesy to insure prompt reporting. The interpreting radiologist is fully responsible for the content of the report.
== END ==
LOC: ER 22:34
DX: K51.30 Ulcerative (chronic) rectosigmoiditis without complications (principal); Z88.5 Allergy status to narcotic agent; Z72.0 Tobacco use
CPT/HCPCS: 85025; 36415; 83690; 80053; 74177; 96360; 99284; Q9967; J7030

== ENCOUNTER 2023-06-23 20:01 | Emergency (ER) | payer OTHER ==
[2023-06-23] MEDS ORDERED: methocarbamoL 750 MG TAB ONE (20:35)
[2023-06-23] MEDS ORDERED: NA CHLORIDE 0.9% 1,000 ML ONE (20:35)
[2023-06-23] MEDS ORDERED: KETOROLAC 30 MG/ML INJ ONE (20:35)
[2023-06-23 20:39] LABS: Absolute Basophils 0.1 K/uL (0-0.5); Absolute Eosinophils 0.1 K/uL (0-0.5); Absolute Monocytes 0.7 K/uL (0.1-1.3); Absolute Neutrophil 3.7 K/uL (1.8-8.0); Basophils % 0.9 % (0-1.3); Eosinophils % 1.1 % (0-4.4); Hematocrit 41.8 % (39.6-49.0); Hemoglobin 13.9 g/dL (13.6-17.9); Lymphocytes % 30.2 % (15.3-44.8); MCH 31.3 pg (27.0-35.0); MCHC 33.1 g/dL (32.0-36.0); MCV 94.5 fL (80-100); MPV 6.9 fL (7.6-11.3); Neutrophils % 56.8 % (41.7-73.7); Nucleated Red Blood Cells % 0.1 % (0-0); Platelets 296 thou/uL (152-406); RBC Red Blood Cell Count 4.43 M/uL (4.33-5.43); Red Cell Distribution Width 14.9 % (12.1-15.2)
[2023-06-23 20:56] LABS: PT Prothrombin Time 12.5 SECONDS (9.5-12.5); Protime INR 1.14
[2023-06-23 20:59] LABS: Albumin 3.7 g/dL (3.4-5.0); Anion Gap 8.7 mEq/L (5.0-15.0); Bilirubin Direct 0.2 mg/dL (0-0.2); Bilirubin Indirect, Calculated 0.4 mg/dL (0.2-0.8); Bilirubin Total 0.6 mg/dL (0.2-1.0); Globulin 3.6 g/dL (2.3-3.5); Magnesium 2.1 mg/dL (1.6-2.4); Potassium 3.7 mEq/L (3.5-5.1); Protein, Total 7.3 g/dL (6.4-8.2); Troponin High Sensitivity 7.5 pg/mL (<58.9)
--- NOTE | 2023-06-23 21:47 | RAD REPORT ---
EXAM DESCRIPTION: Martin Single View06/23/2023 9:32 pm CLINICAL HISTORY: CHEST PAIN COMPARISON: CHEST PA AND LAT 2 VIEW dated 01/26/2013; CHEST PA AND LAT 2 VIEW dated 02/03/2010 TECHNIQUE: Portable AP view of the chest. FINDINGS: The lungs are clear. No pneumothorax or effusion. The cardiomediastinal contours are unre markable. IMPRESSION: No acute cardiopulmonary process.
--- NOTE | 2023-06-23 22:18 | ER ---
Nurse's Notes [facility] Name: Elmer Sanderson Age: 38 yrs Sex: Male : 1985 Arrival Date: 06/23/2023 Time: 20:01 Bed 4 Private MD: Diagnosis: Chest pain, unspecified;Shortness of breath Presentation: 06/22 20:09 Chief complaint: Patient states: cough, runny nose, SOB with chest wall soreness pain pf1 of 7 when taking a deep breath for 2 days. Patient stated needs a prescription for an inhaler, his currently inhaler is . Patient stated is currently staying at a hotel that is being remodeling, help cut some wood today, possibly inhaled dust particles today. Coronavirus screen: Vaccine status: Patient reports receiving the 2nd dose of the covid vaccine. Client denies travel out of the [place] in the last 14 days. Client presents with at least one sign or symptom that may indicate coronavirus-19. Ebola Screen: Patient negative for fever greater than or equal to 101.5 degrees Fahrenheit, and additional compatible Ebola Virus Disease symptoms. Initial Sepsis Screen: Does the patient meet any 2 criteria? HR > 90 bpm. No. Patient's initial sepsis screen is negative. Does the patient have a suspected source of infection? No. Patient's initial sepsis screen is negative. Risk Assessment: Do you want to hurt yourself or someone else? Patient reports no desire to harm self or others. Onset of symptoms was June 21, 2023. 20:09 Method Of Arrival: Ambulatory pf1 20:09 Acuity: JANICE 4 pf1 Triage Assessment: 20:20 General: Appears in no apparent distress. comfortable, well groomed, well developed, pf1 Behavior is calm, cooperative, appropriate for age, quiet. Pain: Complains of pain in chest Pain currently is 7 out of 10 on a pain scale. EENT: Reports nasal discharge. Respiratory: Reports shortness of breath cough that is Airway is patent Respiratory effort is even, unlabored, Respiratory pattern is regular, symmetrical. 20:49 Respiratory: Onset: The symptoms/episode began/occurred suddenly, the patient has mild rv shortness of breath. Historical: - Allergies: 20:19 Codeine; pf1 - PMHx: 20:19 Asthma; Hypertension; ibs; Seizure; pf1 - PSHx: 20:19 None; pf1 - Immunization history:: Adult Immunizations up to date, Client reports receiving the 2nd dose of the Covid vaccine, Client reports receiving the Som \T\ Som single-dose vaccine. Last tetanus immunization: < 5 years ago Flu vaccine is not up to date. - Infectious Disease History:: Denies. - Social history:: Smoking status: Reported history of juuling and/or vaping. Patient uses street drugs, marijuana, Patient/guardian denies using alcohol. Screenin:47 [facility] ED Fall Risk Assessment (Adult) History of falling in the last 3 months, rv including since admission No falls in past 3 months (0 pts) Score/Fall Risk Level 0 - 2 = Low Risk Oriented to surroundings, Maintained a safe environment, Educated pt \T\ family on fall prevention, incl call for assistance when getting out of bed, Assessed \T\ reinforced patient's understanding of fall precautions. Abuse screen: Denies threats or abuse. Denies injuries from another. Nutritional screening: No deficits noted. Tuberculosis screening: No symptoms or risk factors identified. Assessment: 20:47 General: Appears comfortable, Behavior is calm, cooperative. Pain: Complains of pain in rv chest. Neuro: Level of Consciousness is awake, alert, obeys commands, Oriented to person, place, time, situation. Cardiovascular: Capillary refill < 3 seconds Patient's skin is warm and dry. Rhythm is regular. Respiratory: Airway is patent Respiratory effort is even, unlabored, Breath sounds are clear bilaterally. Derm: Skin is intact. 21:59 Reassessment: Patient and/or family updated on plan of care and expected duration. Pain rv level reassessed. Patient is alert, oriented x 3, equal unlabored respirations, skin warm/dry/pink. Patient states feeling better. Patient states symptoms have improved. Vital Signs: 20:09 BP 128 / 79; Pulse 99; Resp 16; Temp 98.8; Pulse Ox 100% on R/A; Weight 68.04 kg; pf1 Height 5 ft. 5 in. ; Pain 7/10; 21:58 BP 110 / 95; Pulse 94; Resp 17; Pulse Ox 99% on R/A; rv 20:09 Body Mass Index 24.96 (68.04 kg, 165.1 cm) pf1 20:09 Pain Scale: Adult pf1 ED Course: 20:08 Patient arrived in ED. gm2 20:09 Mateusz Eddy PA is PHCP. cp 20:09 Unique Cardozo MD is Attending Physician. cp 20:19 Triage completed. pf1 20:47 Patient has correct armband on for positive identification. Client placed on continuous rv cardiac and pulse oximetry monitoring. NIBP monitoring applied. potline monitor on. 20:47 No provider procedures requiring assistance completed. Initial lab(s) drawn, by me, rv sent to lab. EKG done, by ED staff, reviewed by Mateusz PATIÑO. Inserted saline lock: 20 gauge in right forearm, using aseptic technique. Blood collected. 20:48 Arm band placed on right wrist. rv 21:35 XRAY Chest (1 view) In Process Unspecified. EDMS 21:57 Krishna Odell, RN is Primary Nurse. rv 22:26 IV discontinued, intact, bleeding controlled, No redness/swelling at site. Pressure rv dressing applied. Administered Medications: 20:47 Drug: Ketorolac IVP 15 mg IVP once Route: IVP; Site: right forearm; rv 21:57 Follow up: Response: No adverse reaction rv 20:47 Drug: NS 0.9% IV 1000 ml IV at 999 ml/hr Per protocol; 1000 mL bolus Route: IV; Rate: rv 999 ml/hr; Site: right forearm; 21:57 Follow up: IV Status: Completed infusion; IV Intake: 1000ml rv 20:47 Drug: Methocarbamol PO 750 mg PO once Route: PO; rv 21:57 Follow up: Response: No adverse reaction rv 22:25 Drug: MethylPrednisoLONE IVP 80 mg IVP once Route: IVP; Site: right forearm; rv 22:25 Follow up: Response: Medication administered at discharge. rv Medication: 20:47 VIS not applicable for this client. rv Intake: 21:57 IV: 1000ml; Total: 1000ml. rv Outcome: 22:17 Discharge ordered by . cp 22:26 Discharged to home ambulatory, with family, rv 22:26 Condition: good 22:26 Discharge instructions given to patient, Instructed on discharge instructions, follow up and referral plans. medication usage, Demonstrated understanding of instructions, follow-up care, medications, Prescriptions given X 4, 22:26 Patient left the ED. rv Signatures: Dispatcher [employer] EDCO Mateusz Eddy PA PA cp Vicente, Ronaldo, RN RN rv Jeana Ortega RN RN pf1 Debbie Decker [facility]
--- NOTE | 2023-06-23 22:18 | EDPHYS ---
Physician Documentation [facility] Name: Elmer Sanderson Age: 38 yrs Sex: Male : 1985 Arrival Date: 06/23/2023 Time: 20:01 Bed 4 Private MD: ED Physician Unique Cardozo HPI: 06/22 20:30 This 38 yrs old Black Male presents to ER via Ambulatory with complaints of Asthma cp Exacerbation, Breathing Difficulty. 20:30 The patient or guardian reports chest pain that is located primarily in the anterior cp chest wall, left. 20:30 The pain radiates to right back. Associated signs and symptoms: Pertinent positives: cp cough, shortness of breath, Pertinent negatives: abdominal pain, diaphoresis, dizziness, headache, lower extremity pain, lower extremity swelling, palpitations, syncope, vomiting, fever. The chest pain is described as squeezing. Duration: The patient or guardian reports a single episode, that is still ongoing. Modifying factors: the symptoms are aggravated by deep breath, movement. Historical: - Allergies: 20:19 Codeine; pf1 - PMHx: 20:19 Asthma; Hypertension; ibs; Seizure; pf1 - PSHx: 20:19 None; pf1 - Immunization history:: Adult Immunizations up to date, Client reports receiving the 2nd dose of the Covid vaccine, Client reports receiving the Som \T\ Som single-dose vaccine. Last tetanus immunization: < 5 years ago Flu vaccine is not up to date. - Infectious Disease History:: Denies. - Social history:: Smoking status: Reported history of juuling and/or vaping. Patient uses street drugs, marijuana, Patient/guardian denies using alcohol. ROS: 20:35 Constitutional: Negative for body aches, chills, fever, poor PO intake, cp 20:35 Cardiovascular: Positive for chest pain, Negative for edema, palpitations, 20:35 Respiratory: Positive for cough, shortness of breath, Exam: 20:40 Constitutional: The patient appears in no acute distress, alert, awake, cp non-diaphoretic, non-toxic, well developed, well nourished, uncomfortable, 20:40 Head/Face: Normocephalic, atraumatic. cp 20:40 Eyes: Periorbital structures: appear normal, Conjunctiva: normal, no exudate, no injection, Sclera: no appreciated abnormality, Lids and lashes: appear normal, bilaterally, 20:40 ENT: External ear(s): are unremarkable, Nose: is normal, Mouth: Lips: moist, Oral mucosa: pink and intact, moist, Posterior pharynx: is normal, airway is patent, no erythema, no exudate, 20:40 Neck: ROM/movement: is normal, is supple, without pain, no range of motions limitations, 20:40 Chest/axilla: Inspection: normal, Palpation: crepitus, is not appreciated, tenderness, that is moderate, of the anterior aspect of left upper chest, 20:40 Cardiovascular: Rate: normal, Rhythm: regular, Edema: is not appreciated, JVD: is not appreciated, 20:40 Respiratory: the patient does not display signs of respiratory distress, Respirations: normal, no use of accessory muscles, no retractions, labored breathing, is not present, Breath sounds: bronchial sounds, that are mild, are heard diffusely, decreased breath sounds, are not appreciated, stridor, is not appreciated, wheezing: is not appreciated, 20:40 Abdomen/GI: Inspection: abdomen appears normal, Palpation: abdomen is soft and non-tender, in all quadrants, 20:40 Back: pain, that is moderate, of the left scapular area, 20:40 Skin: no rash present. 20:40 Neuro: Orientation: to person, place \T\ time. Mentation: is normal, Motor: moves all fours, strength is normal, Sensation: is normal, 20:48 ECG was reviewed by the Attending Physician. cp Vital Signs: 20:09 BP 128 / 79; Pulse 99; Resp 16; Temp 98.8; Pulse Ox 100% on R/A; Weight 68.04 kg; pf1 Height 5 ft. 5 in. ; Pain 7/10; 21:58 BP 110 / 95; Pulse 94; Resp 17; Pulse Ox 99% on R/A; rv 20:09 Body Mass Index 24.96 (68.04 kg, 165.1 cm) pf1 20:09 Pain Scale: Adult pf1 MDM: 20:20 Patient medically screened. cp 22:16 Data reviewed: vital signs, nurses notes, lab test result(s), EKG, radiologic studies, cp plain films, and as a result, I will discharge patient. 22:16 Differential diagnosis: acute myocardial infarction, chest wall pain, pericarditis, cp pleurisy, pneumonia, pneumothorax, pulmonary embolus, thoracic aortic disection. I considered the following discharge prescriptions or medication management in the emergency department Medications were administered in the Emergency Department. See MAR. Independent interpretation of the following test(s) in the Emergency Department EKG: See my EKG interpretation above. Care significantly affected by the following chronic conditions: Hypertension, asthma. Special discussion: Based on the patient's history, exam, and Dx evaluation, there is no indication for emergent intervention or inpatient Tx. It is understood by the patient/guardian that if the Sx's persist or worsen they need to return immediately for re-evaluation. 06/22 20:27 Order name: Basic Metabolic Panel; Complete Time: 21:08 cp 04 21:08 Interpretation: Normal except: GFR 83. cp 06/22 20:27 Order name: CBC with Diff; Complete Time: 21:08 cp 06/22 22:14 Interpretation: Normal except: MPV 6.9. cp 06/22 20:27 Order name: D-Dimer; Complete Time: 21:08 cp 06/22 20:27 Order name: LFT's; Complete Time: 21:08 cp 06/22 22:15 Interpretation: Normal except: GLOB 3.6; A/G 1.0. cp 06/22 20:27 Order name: Magnesium; Complete Time: 21:08 cp 06/22 20:27 Order name: NT PRO-BNP; Complete Time: 21:08 cp 06/22 20:27 Order name: PT-INR; Complete Time: 21:08 cp 06/22 20:27 Order name: Troponin HS; Complete Time: 21:08 cp 06/22 20:27 Order name: XRAY Chest (1 view); Complete Time: 22:00 cp 04 22:00 Interpretation: Report reviewed. cp 06/22 20:27 Order name: Cardiac monitoring; Complete Time: 20:47 cp 04 20:27 Order name: EKG - Nurse/Tech; Complete Time: 20:47 cp 06/22 20:27 Order name: IV Saline Lock; Complete Time: 20:47 cp 06/22 20:27 Order name: Labs collected and sent; Complete Time: 20:47 cp 06/22 20:27 Order name: O2 Per Protocol; Complete Time: 20:47 cp 06/22 20:27 Order name: O2 Sat Monitoring; Complete Time: 20:47 cp EC:48 Rate is 84 beats/min. Rhythm is regular. GA interval is normal. QRS interval is normal. cp QT interval is normal. T waves are Inverted in lead aVR. Interpreted by me. Reviewed by me. Administered Medications: 20:47 Drug: Ketorolac IVP 15 mg IVP once Route: IVP; Site: right forearm; rv 21:57 Follow up: Response: No adverse reaction rv 20:47 Drug: NS 0.9% IV 1000 ml IV at 999 ml/hr Per protocol; 1000 mL bolus Route: IV; Rate: rv 999 ml/hr; Site: right forearm; 21:57 Follow up: IV Status: Completed infusion; IV Intake: 1000ml rv 20:47 Drug: Methocarbamol PO 750 mg PO once Route: PO; rv 21:57 Follow up: Response: No adverse reaction rv 22:25 Drug: MethylPrednisoLONE IVP 80 mg IVP once Route: IVP; Site: right forearm; rv 22:25 Follow up: Response: Medication administered at discharge. rv Disposition Summary: 06/23/23 22:17 Discharge Ordered Notes: Location: Home cp Problem: new cp Symptoms: have improved cp Condition: Stable cp Diagnosis - Chest pain, unspecified cp - Shortness of breath cp Followup: cp - With: Private Physician - When: 2 - 3 days - Reason: Recheck today's complaints Discharge Instructions: - Discharge Summary Sheet cp - Chest Wall Pain cp - Shortness of Breath, Adult cp Forms: - Medication Reconciliation Form cp - Thank You Letter cp - Antibiotic Education cp - Prescription Opioid Use cp - Patient Portal Instructions cp - Leadership Thank You Letter cp Prescriptions: - albuterol sulfate 90 mcg/actuation Inhalation HFA Aerosol Inhaler - inhale 1 puff INHALATION route every 4 to 6 hours as needed for bronchospasm; cp administer via ventilator; 1 unit; Refills: 0, Product Selection Permitted - diclofenac sodium 50 mg Oral tablet, delayed release (enteric coated) - take 1 tablet ORAL route 2 times per day; 20 tablet; Refills: 0, Product cp Selection Permitted - Medrol (Saran) 4 mg Oral Tablets, Dose Pack - take 1 tablet ORAL route as directed - follow package instructions; 1 packet; cp Refills: 0, Product Selection Permitted - methocarbamol 750 mg Oral tablet - take 1 tablet ORAL route 3 times per day; 30 tablet; Refills: 0, Product cp Selection Permitted Signatures: Dispatcher [employer] EDMS Mateusz Eddy PA PA cp Vicente, Ronaldo, RN RN rv Jeana Ortega RN RN pf1 Corrections: (The following items were deleted from the chart) 20:28 20:28 BASIC METABOLIC PANEL+C.LAB.BRZ ordered. EDMS EDMS 20:28 20:28 CBC+H.LAB.BRZ ordered. EDMS EDMS 20:28 20:28 D-DIMER+COAG.LAB.BRZ ordered. EDMS EDMS 20:28 20:28 HEPATIC FUNCTION+C.LAB.BRZ ordered. EDMS EDMS 20:28 20:28 MAGNESIUM+C.LAB.BRZ ordered. EDMS EDMS 20:28 20:28 PROBNP+C.LAB.BRZ ordered. EDMS EDMS 20:28 20:28 PROTIME (+INR)+COAG.LAB.BRZ ordered. EDMS EDMS 20:28 20:28 Troponin High Sensitivity+C.LAB.BRZ ordered. EDMS EDMS 20:28 20:28 Chest Single View+RAD.RAD.BRZ ordered. EDMS EDMS
[2023-06-23] MEDS ORDERED: METHYLPREDNISOLONE 40 MG INJ ONE (22:20)
[2023-06-24 01:13] VITALS: BP 110/95; TEMP 98.8; O2SAT 99
== END 2023-06-23 22:26 | disposition home or self-care (01) ==
LOC: ER 20:01
DX: R07.89 Other chest pain (principal); R06.02 Shortness of breath; J45.909 Unspecified asthma, uncomplicated; I10 Essential (primary) hypertension; Z88.5 Allergy status to narcotic agent
CPT/HCPCS: 96361; 93005; 85025; 80048; 36415; 83735; 85610; 85379; 80076; 84484; 83880; 71045; 96375; 96374; 99285; J7030; J2920

== ENCOUNTER 2023-12-09 23:54 | Emergency (ER) | payer OTHER ==
--- OUTSIDE RECORDS SUMMARY | 2023-12-09 23:57 | XMS REPORT | Continuity of Care Document ---
Author Name Unknown Address [address] [facility] [address] thconnect Address [address] [facility] [address] [place] [address] Care Team Providers Care Evp [facility] Experience Strategy Name Role Phone ALICIA LITTLE Attending Clinician Unavailable MICHELLE RODRIGUEZ Attending Clinician Unavailab WINSTON Becerra Attending Clinician Unavailab marito Payers Payer Name Policy Type Policy Number Effective Date Expirati on Date Source [facility] 9 [id number] 2023 00:00:00 Allergies, Adverse Reactions, Alerts Allergy Name Allergy Type Status Severity Reaction(s) Onset Date Inactive Date Treating Clinician Comments Source Immanuel Becerril ty to adverse reaction s Active Anaphylaxis 09-02 00:00: 00 Clotilde Franco Externa l Social History Social Habit Start Date Stop Date Quantity Comments Source Sexual orientation Josephine Bella - External History of tobacco use Cigar Smoker Clotilde Bella - External History of Social function 2023-09-03 00:00:00 2023-09-03 00:00:00 Clotilde Bella - External Sex [birth year] at 1985 00:00:00 1985 00:00:00 Clotilde Franco External Smoking Status Start Date Stop Date Source Smokes tobacco daily 2023-09-03 00:00:00 Clotilde Bella - External Medications Ordered Medication Name Filled Medication Name Start Date Stop Date Current Medication? Ordering Clinician Indication Dosage Frequency Signature (SIG) Comments Components Source Albuterol HFA 108 (90 Base) MCG/ACT IN AERS 06-23 00:00: 00 Yes INHALE 1 PUFF BY MOUTH EVERY 4-6 HOURS NEEDED FOR BRONCHOSPA SM. Clotilde Seybold - Externa l Vital Signs Vital Name Observation Time Observation Value Comments S lesley Systolic blood pressure 2023-09-03 19:02:00 132 mm[Hg] Clotilde Seybo ld - External Diastolic blood pressure 2023-09-03 19:02:00 78 mm[Hg] Clotilde Seybo ld - External Heart rate 2023-09-03 19:02:00 70 /min Kelse y Seybold - External Body temperature 2023-09-03 19:02:00 36.78 Juani Clotilde Seybold - External Respiratory rate 2023-09-03 19:02:00 18 /min Clotilde Seybold - External Body height 2023-09-03 19:02:00 165.1 cm Sharlene ey Seybold - External Body weight 2023-09-03 19:02:00 62.596 kg Sharlene ey Seybold - External BMI 2023-09-03 19:02:00 22.96 kg/m2 Sharlene ey Seybold - External Oxygen saturation in Arterial blood by Pulse oximetry 2023-09-03 19:02:00 98 /min Clotilde Beckfordybo ld - External Encounters Start Date/Time End Date/Time Encounter Type Admission Type Attending [facility] Facility Care Department Encounter ID Source 2024-01-27 15:30:00 2024-01-27 15:30:00 Outpatient ALICIA LITTLE [id number] [facility] 2023-11-26 13:43:51 2023-11-26 13:43:51 Outpatient SFA SFA [id number] Jewel Tiffany Robb 2023-11-22 10:22:57 2023-11-22 10:22:57 Outpatient SFA SFA [id number] Jewel Zamudio 2023-11-21 14:45:00 2023-11-21 14:45:00 Outpatient MICHELLE RODRIGUEZ [id number] [facility] 2023-11-11 00:00:00 2023-11-11 00:00:00 Outpatient WINSTON CAMACHO [id number] [facility] 2023-10-03 11:30:00 2023-10-03 11:30:00 Outpatient WINSTON CAMACHO [id number] Clotilde Bella 2023-09-03 14:00:00 2023-09-03 14:00:00 Outpatient WINSTON CAMACHO [id number] Clotilde Bella 2023-08-13 10:00:00 2023-08-13 10:00:00 Outpatient WINSTON CAMACHO [id number] [facility]
[2023-12-10 01:13] LABS: Absolute Eosinophils 0.1 K/uL (0-0.5); Absolute Lymphocytes (CBC) 1.1 K/uL (0.7-4.9); Absolute Monocytes 0.6 K/uL (0.1-1.3); Absolute Neutrophil 6.4 K/uL (1.8-8.0); Basophils % 0.5 % (0-1.3); Eosinophils % 0.7 % (0-4.4); Hematocrit 39.9 % (39.6-49.0); Hemoglobin 13.1 g/dL (13.6-17.9); Lymphocytes % 13.7 % (15.3-44.8); MCH 31.7 pg (27.0-35.0); MCHC 32.9 g/dL (32.0-36.0); MCV 96.5 fL (80-100); MPV 7.4 fL (7.6-11.3); Neutrophils % 78.1 % (41.7-73.7); Platelets 293 thou/uL (152-406); RBC Red Blood Cell Count 4.13 M/uL (4.33-5.43); Red Cell Distribution Width 14.9 % (12.1-15.2)
[2023-12-10 01:23] LABS: Albumin 3.8 g/dL (3.4-5.0); Albumin/Globulin Ratio 1.2 (1.1-1.8); Anion Gap 4.1 mEq/L (5.0-15.0); Bilirubin Total 0.3 mg/dL (0.2-1.0); Globulin 3.3 g/dL (2.3-3.5); Potassium 4.1 mEq/L (3.5-5.1); Protein, Total 7.1 g/dL (6.4-8.2)
[2023-12-10] MEDS ORDERED: ONDANSETRON 4 MG/2 ML VIAL ONE (01:54)
[2023-12-10] MEDS ORDERED: NA CHLORIDE 0.9% 1,000 ML ONE (01:55)
[2023-12-10] MEDS ORDERED: MORPHINE 4 MG/ML SYR ONE (01:55)
--- NOTE | 2023-12-10 03:54 | RAD REPORT ---
ADDENDUM #1 THIS REPORT CONTAINS FINDINGS THAT MAY BE CRITICAL TO PATIENT CARE: The findings were verbally discus sed via telephone conference with Dr. Sean Charlton on 12/10/2023 3:21 AM CDT. The results were acknowledged and understood. Electronically signed by: Adelia Steen MD 12/10/2023 03:50 AM CDT End of Addendum EXAM: CT Abdomen and Pelvis With Intravenous Contrast CLINICAL HISTORY: RLQ pain. TECHNIQUE: Axial computed tomography images of the abdomen and pelvis with intravenous contrast. Sagittal and coronal reformatted images were created and reviewed. This CT exam was performed using one or more of the following dose reduction techniques: automated exposure control, adjustment of the mA a nd/or kV according to patient size, and/or use of iterative reconstruction technique. COMPARISON: CT Abdomen Pelvis 12/02/2023. FINDINGS: Lung bases: Unremarkable. No mass. No consolidation. ABDOMEN: Liver: Unremarkable. No mass. Gallbladder and bile ducts: Unremarkable. No calcified stones. No ductal dilation. Pancreas: Unremarkable. No mass. No ductal dilation. Spleen: Unremarkable. No splenomegaly. Adrenals: Unremarkable. No mass. Kidneys and ureters: Somewhat striated renal cortical enhancement bilaterally.. Small bilateral deangelo al calculi. No hydronephrosis. Stomach and bowel: Unremarkable. No obstruction. No mucosal thickening. PELVIS: Appendix: Prominent retrocecal appendix measuring up to 12 mm in diameter, slightly less pronounced on the current study. No significant surrounding inflammation. Bladder: The urinary bladder is distended. Reproductive: Unremarkable as visualized. ABDOMEN and PELVIS: Intraperitoneal space: Unremarkable. No free air. No significant fluid collection. Bones/joints: No acute fracture. No dislocation. Soft tissues: Unremarkable. Vasculature: Unremarkable. No abdominal aortic aneurysm. Lymph nodes: Unremarkable. No enlarged lymph nodes. IMPRESSION: 1. Prominent retrocecal appendix, slightly less pronounced on the current study without significant surrounding inflammation. Early acute appendicitis cannot be entirely excluded. 2. Somewhat striated renal cortical enhancement bilaterally. This can be seen in the setting of fabrizio lonephritis. 3. Other findings as above. Electronically signed by: Adelia Steen MD 12/10/2023 03:18 AM CDT RP Due to temporary technical issues with the PACS/[employer] reporting system, reports are being rob d by the in-house radiologist without review as a courtesy to ensure prompt reporting the interpreting radiologist is fully responsible for the content of the report. Transcribed Date/Time: 12/10/2023 3:54 AM
--- NOTE | 2023-12-10 05:29 | ER ---
Nurse's Notes [facility] Name: Elmer Sanderson Age: 38 yrs Sex: Male : 1985 Arrival Date: 12/09/2023 Time: 23:54 Bed 24 Private MD: Diagnosis: Right lower quadrant pain Presentation: 12/09 01:47 Chief complaint: Patient states: I am having issues with my appendix again. Coronavirus jb4 screen: At this time, the client does not indicate any symptoms associated with coronavirus-19. Ebola Screen: No symptoms or risks identified at this time. Initial Sepsis Screen: Does the patient meet any 2 criteria? HR > 90 bpm. Yes Does the patient have a suspected source of infection? No. Patient's initial sepsis screen is negative. Risk Assessment: Do you want to hurt yourself or someone else? Patient reports no desire to harm self or others. Onset of symptoms was December 10, 2023. Transition of care: patient was not received from another setting of care. 01:47 Method Of Arrival: Law Enforcement: Mani LERMA jb4 01:47 Acuity: JANICE 3 jb4 Historical: - Allergies: 01:48 Codeine; jb4 - PMHx: 01:48 Anxiety; depressive disorder; ibs; insomnia; jb4 - Immunization history:: Adult Immunizations up to date. - Family history:: not pertinent. Screenin:48 [facility] ED Fall Risk Assessment (Adult) History of falling in the last 3 months, jb4 including since admission No falls in past 3 months (0 pts) Confusion or Disorientation No (0 pts) Intoxicated or Sedated No (0 pts) Impaired Gait No (0 pts) Mobility Assist Device Used No (0 pt) Altered Elimination No (0 pt) Score/Fall Risk Level 0 - 2 = Low Risk Oriented to surroundings, Maintained a safe environment. Abuse screen: Denies threats or abuse. Nutritional screening: No deficits noted. Tuberculosis screening: No symptoms or risk factors identified. Assessment: 01:48 General: Appears in no apparent distress. comfortable, Behavior is calm, cooperative, jb4 appropriate for age. Pain: Complains of pain in right lower quadrant Pain radiates to right low back Pain currently is 8 out of 10 on a pain scale. Neuro: Level of Consciousness is awake, alert, obeys commands, Oriented to person, place, time, situation. Cardiovascular: Patient's skin is warm and dry. Respiratory: Airway is patent Respiratory effort is even, unlabored, Respiratory pattern is regular, symmetrical. GI: Reports lower abdominal pain. Derm: Skin is intact, Skin is pink, warm \T\ dry. Musculoskeletal: Circulation, motion, and sensation intact. Range of motion: intact in all extremities. Vital Signs: 01:47 BP 106 / 63; Pulse 90; Resp 16; Pulse Ox 100% on R/A; Weight 56.7 kg (R); Height 5 ft. jb4 5 in. (R); Pain 8/10; 02:13 BP 111 / 74; Pulse 90; Resp 16; Pulse Ox 98% on R/A; jb4 02:30 Temp 97.4(TE); jb4 03:00 BP 106 / 72; Pulse 91; Resp 15; Pulse Ox 100% ; vc1 04:00 BP 106 / 68; Pulse 73; Resp 16; Pulse Ox 98% ; vc1 05:00 BP 110 / 70; Pulse 69; Resp 15; Pulse Ox 99% ; vc1 05:45 BP 102 / 86; Pulse 75; Resp 16; Temp 98; Pulse Ox 100% ; vc1 01:47 Body Mass Index 20.80 (56.70 kg, 165.1 cm) jb4 01:47 Pain Scale: Adult jb4 ED Course: 00:03 Patient arrived in ED. jb4 00:03 Sean Charlton MD is Attending Physician. rt 00:42 Inserted saline lock: 20 gauge in right forearm, using aseptic technique. Blood oe collected. Flushed with 10 mL NS. 00:43 CBC with Diff Sent. oe 00:43 CMP Sent. oe 00:43 Lipase Sent. oe 01:47 CT Abd/Pelvis - IV Contrast Only In Process Unspecified. EDMS 01:48 Triage completed. jb4 01:48 Arm band placed on right wrist. jb4 01:48 Patient has correct armband on for positive identification. Bed in low position. Call jb4 light in reach. Side rails up X 1. Provided Education on: plan of care. 05:28 Noam Powell MD is Referral Physician. rt 05:49 No provider procedures requiring assistance completed. IV discontinued, intact, vc1 bleeding controlled, No redness/swelling at site. Pressure dressing applied. Administered Medications: 01:16 Not Given (ordered in errorr): [id number] mg IVP once jb4 02:10 Drug: NS 0.9% IV 1000 ml IV at 1 bolus Per protocol; 1000 mL bolus Route: IV; Rate: 1 jb4 bolus; Site: right forearm; 05:47 Follow up: IV Status: Completed infusion; IV Intake: 1000ml vc1 02:10 Drug: Ondansetron IVP 4 mg IVP once; over 2 minutes Route: IVP; Site: right forearm; jb4 03:00 Follow up: Response: No adverse reaction; Marked relief of symptoms vc1 02:11 Drug: morphine IVP or IV 4 mg IVP once over 4 mins Route: IVP; Infused Over: 4 mins; jb4 Site: right forearm; 05:48 Follow up: Response: No adverse reaction; Marked relief of symptoms; Pain is decreased vc1 Medication: 01:48 VIS not applicable for this client. jb4 Intake: 05:47 IV: 1000ml; Total: 1000ml. vc1 Outcome: 05:28 Discharge ordered by . rt 05:49 Discharged to Law Enforcement vc1 05:49 Condition: good 05:49 Discharge instructions given to patient, police, Instructed on discharge instructions, follow up and referral plans. Demonstrated understanding of instructions, follow-up care, 05:49 Patient left the ED. vc1 Signatures: Dispatcher [employer] Elijah Martin, STACY KUMAR jb4 Blane Swain Vanessa, RN RN vc1 Sean Charlton MD MD rt
--- NOTE | 2023-12-10 05:29 | EDPHYS ---
Physician Documentation [facility] Name: Elmer Sanderson Age: 38 yrs Sex: Male : 1985 Arrival Date: 12/09/2023 Time: 23:54 Bed 24 Private MD: ED Physician Sean Charlton HPI: 12/09 01:22 This 38 yrs old Black Male presents to ER via Unassigned with complaints of abdominal rt pain. 01:22 Patient was seen in this hospital about a week ago, was admitted for an acute rt perforated appendicitis. Per chart review, he wished to have a conservative course. Patient subsequently improved, went home. States that he developed a worsening right lower quadrant pain tonight. Denies other acute complaints at this time, symptoms are moderate in severity, no other aggravating alleviating factors.. Historical: - Allergies: 01:48 Codeine; jb4 - PMHx: 01:48 Anxiety; depressive disorder; ibs; insomnia; jb4 - Immunization history:: Adult Immunizations up to date. - Family history:: not pertinent. ROS: 01:22 Constitutional: Negative for fever, chills, and weight loss, Cardiovascular: Negative rt for chest pain, palpitations, and edema, Respiratory: Negative for shortness of breath, cough, wheezing, and pleuritic chest pain, MS/Extremity: Negative for injury and deformity, Skin: Negative for injury, rash, and discoloration, Neuro: Negative for headache, weakness, numbness, tingling, and seizure, 01:22 Abdomen/GI: Positive for abdominal pain, nausea, Exam: 01:22 Constitutional: This is a well developed, well nourished patient who is awake, alert, rt and in no acute distress. Head/Face: Normocephalic, atraumatic. Chest/axilla: Normal chest wall appearance and motion. Nontender with no deformity. No lesions are appreciated. Cardiovascular: Regular rate and rhythm with a normal S1 and S2. No gallops, murmurs, or rubs. Normal PMI, no JVD. No pulse deficits. Respiratory: Lungs have equal breath sounds bilaterally, clear to auscultation and percussion. No rales, rhonchi or wheezes noted. No increased work of breathing, no retractions or nasal flaring. Skin: Warm, dry with normal turgor. Normal color with no rashes, no lesions, and no evidence of cellulitis. MS/ Extremity: Pulses equal, no cyanosis. Neurovascular intact. Full, normal range of motion. Neuro: Awake and alert, GCS 15, oriented to person, place, time, and situation. Cranial nerves II-XII grossly intact. Motor strength 5/5 in all extremities. Sensory grossly intact. Cerebellar exam normal. Normal gait. 01:22 Abdomen/GI: Tenderness to the right lower quadrant with mild guarding, no rebound, distention, Vital Signs: 01:47 BP 106 / 63; Pulse 90; Resp 16; Pulse Ox 100% on R/A; Weight 56.7 kg (R); Height 5 ft. jb4 5 in. (R); Pain 8/10; 02:13 BP 111 / 74; Pulse 90; Resp 16; Pulse Ox 98% on R/A; jb4 02:30 Temp 97.4(TE); jb4 03:00 BP 106 / 72; Pulse 91; Resp 15; Pulse Ox 100% ; vc1 04:00 BP 106 / 68; Pulse 73; Resp 16; Pulse Ox 98% ; vc1 05:00 BP 110 / 70; Pulse 69; Resp 15; Pulse Ox 99% ; vc1 05:45 BP 102 / 86; Pulse 75; Resp 16; Temp 98; Pulse Ox 100% ; vc1 01:47 Body Mass Index 20.80 (56.70 kg, 165.1 cm) jb4 01:47 Pain Scale: Adult jb4 MDM: 00:05 Patient medically screened. rt 05:30 Differential Diagnosis Appendicitis, abdominal pain. Data reviewed: vital signs, nurses rt notes, lab test result(s), radiologic studies. Consideration of Admission/Observation Escalation of care including admission/observation considered. Management of patient was discussed with the following: Pbx Repairer: Discussed with Dr. Powell, appendix seems to be improving, labs are benign. No indications for emergent surgery. Patient may follow-up as an outpatient.. Independent interpretation of the following test(s) in the Emergency Department CT Scan: My interpretation is No bowel obstruction seen on interpretation of CT scan images. Counseling: I had a detailed discussion with the patient and/or guardian regarding the historical points, exam findings, and any diagnostic results supporting the discharge/admit diagnosis, lab results, radiology results, the need for outpatient follow up, to return to the emergency department if symptoms worsen or persist or if there are any questions or concerns that arise at home. Response to treatment: the patient's symptoms have markedly improved after treatment. 12/09 00:10 Order name: CBC with Diff; Complete Time: :24 rt 12/09 00:10 Order name: CMP; Complete Time: :24 rt 12/09 00:10 Order name: Lipase; Complete Time: :24 rt 12/09 00:10 Order name: CT Abd/Pelvis - IV Contrast Only rt 12/09 00:10 Order name: IV Saline Lock; Complete Time: :43 rt 12/09 00:10 Order name: Labs collected and sent; Complete Time: :43 rt Administered Medications: 01:16 Not Given (ordered in errorr): [id number] mg IVP once jb4 02:10 Drug: NS 0.9% IV 1000 ml IV at 1 bolus Per protocol; 1000 mL bolus Route: IV; Rate: 1 jb4 bolus; Site: right forearm; 05:47 Follow up: IV Status: Completed infusion; IV Intake: 1000ml vc1 02:10 Drug: Ondansetron IVP 4 mg IVP once; over 2 minutes Route: IVP; Site: right forearm; jb4 03:00 Follow up: Response: No adverse reaction; Marked relief of symptoms vc1 02:11 Drug: morphine IVP or IV 4 mg IVP once over 4 mins Route: IVP; Infused Over: 4 mins; jb4 Site: right forearm; 05:48 Follow up: Response: No adverse reaction; Marked relief of symptoms; Pain is decreased vc1 Disposition Summary: 12/10/23 05:28 Discharge Ordered Notes: Location: Home rt Problem: an ongoing problem rt Symptoms: have improved rt Condition: Stable rt Diagnosis - Right lower quadrant pain rt Followup: rt - With: Noam Powell MD - When: 10 - 14 days - Reason: Discharge Instructions: - Discharge Summary Sheet rt - Abdominal Pain, Adult rt Forms: - Medication Reconciliation Form rt - Antibiotic Education rt - Prescription Opioid Use rt - Patient Portal Instructions rt - Leadership Thank You Letter rt Signatures: Dispatcher [employer] Elijah Martin RN RN jb4 Sean Charlton MD MD rt Darcie Nichole RN vc1 Corrections: (The following items were deleted from the chart) 00:11 00:11 CBC+H.LAB.BRZ ordered. EDMS EDMS 00: 00:11 COMPREHENSIVE METABOLIC PANEL+C.LAB.BRZ ordered. EDMS EDMS : 00:11 LIPASE+C.LAB.BRZ ordered. EDMS EDMS 00: 00:11 Abdomen Pelvis W Con+CT.RAD.BRZ ordered. EDMS EDMS
[2023-12-10 06:21] VITALS: BP 102/86; TEMP 98; O2SAT 100
== END 2023-12-10 05:49 | disposition home or self-care (01) ==
LOC: ER 23:54
DX: R10.31 Right lower quadrant pain (principal)
CPT/HCPCS: 96361; 85025; 36415; 83690; 80053; 74177; 96375; 96374; 99284; Q9967; J2405; J7030

== ENCOUNTER 2024-03-22 20:12 | Emergency (ER) | payer OTHER, SELFPAY ==
--- OUTSIDE RECORDS SUMMARY | 2024-03-22 20:15 | XMS REPORT | Continuity of Care Document ---
Author Name Unknown Address [address] [facility] [address] th[address] Address [address] [facility] [address] [place] [address] Care Team Providers Care Food Counselor Name Role Phone ALICIA LITTLE Attending Clinician Unavailable MICHELLE RODRIGUEZ Attending Clinician Unavailab WINSTON Becerra Attending Clinician Unavailab marito Payers Payer Name Policy Type Policy Number Effective Date Expirati on Date Source [facility] JUDY HAN COPAY FOCUS 9 [id number] 2023 00:00:00 Allergies, Adverse Reactions, Alerts Allergy [...] End Date/Time Encounter Type Admission Type Attending [facility] Care Department Encounter ID Source 2024-01-27 15:30:00 2024-01-27 15:30:00 Outpatient ALICIA LITTLE [id number] [facility] 2023-11-26 13:43:51 2023-11-26 13:43:51 Outpatient SFA SFA [id number] Jewel Tiffany Robb 2023-11-22 10:22:57 2023-11-22 10:22:57 Outpatient SFA SFA [id number] Jewel Zamudio 2023-11-21 14:45:00 2023-11-21 14:45:00 Outpatient MICHELLE RODRIGUEZ [id number] [facility] 2023-11-11 00:00:00 2023-11-11 00:00:00 Outpatient WINSTON CAMACHO [id number] [facility] 2023-10-03 11:30:00 2023-10-03 11:30:00 Outpatient WINSTON CAMACHO [id number] Clotilde Bella 2023-09-03 14:00:00 2023-09-03 14:00:00 Outpatient WINSTON CAMACHO [id number] Clotilde Bella 2023-08-13 10:00:00 2023-08-13 10:00:00 Outpatient WINSTON CAMACHO [id number] [facility]
[2024-03-22] MEDS ORDERED: ALBUTEROL 2.5 MG/3 ML NEB SOL ONE (21:15)
[2024-03-22] MEDS ORDERED: IPRATROPIUM BROM 0.5MG/2.5ML ONE (21:15)
[2024-03-22] MEDS ORDERED: METOCLOPRAMIDE 10 MG/2mL INJ ONE (21:16)
[2024-03-22] MEDS ORDERED: DIPHENHYDRAMINE 50 MG/ML VIAL ONE (21:16)
[2024-03-22] MEDS ORDERED: dexAMETHasone 10 MG/ML VIAL ONE (21:16)
[2024-03-22] MEDS ORDERED: NA CHLORIDE 0.9% 250 ML ONE (21:16)
--- NOTE | 2024-03-22 21:30 | RAD REPORT ---
EXAMINATION: ONE VIEW CHEST XR CLINICAL INDICATION: Male, 38 years old.,COUGH TECHNIQUE: Frontal chest projection is submitted. Examination is limited by patient positioning and t echnique. COMPARISON: 06/23/2023. FINDINGS: The lungs are well inflated and clear. No pneumothorax or sizable effusion. The heart is normal in s ize. Mediastinal contours are unremarkable. IMPRESSION: No acute intrathoracic abnormalities.
[2024-03-22] MEDS ORDERED: ACETAMINOPHEN 500 MG TAB ONE (21:34)
[2024-03-22 22:02] LABS: SARS-CoV-2 Antigen CONTROL BLUE LINE VIS/BG OK; SARS-CoV-2 Antigen Rapid Res Negative (Negative)
--- NOTE | 2024-03-22 22:24 | EDPHYS ---
Physician Documentation [facility] Name: Elmer Sanderson Age: 38 yrs Sex: Male : 1985 Arrival Date: 03/22/2024 Time: 20:12 Bed 7 Private MD: ED Physician Toby Sanchez HPI: 03/22 20:36 This 38 yrs old Black Male presents to ER via Ambulatory with complaints of Chest Pain, ec2 Asthma Exacerbation. 20:36 Patient arrives today for evaluation of cough and cold symptoms. Family member with ec2 known influenza. Patient been having cough and congestion as well as nausea and vomiting. Some diarrhea as well. . Historical: - Allergies: 20:28 Codeine; br2 - PMHx: 20:28 Anxiety; depressive disorder; ibs; insomnia; Asthma; br2 - Immunization history:: Adult Immunizations up to date. - Infectious Disease History:: Denies. - Social history:: Smoking status: Patient reports the use of cigarette tobacco products, 1, Reported history of juuling and/or vaping. ROS: 20:36 Constitutional: as per hpi ec2 Exam: 20:36 Constitutional: GEN: NAD Head: atraumatic Eyes: EOMI Ears: External ears are ec2 normal. CV: regular rate LUNGS: no respiratory distress ABD: non-distended SKIN: no evidence of rashes MSK: no evidence of trauma Vital Signs: 20:24 BP 129 / 77; Pulse 95; Resp 18; Temp 98.6(IR); Pulse Ox 98% ; Weight 69.85 kg; Height 5 br2 ft. 4 in. ; Pain 10/10; 21:24 BP 107 / 65; Pulse 91; Resp 12; Temp 101.9; Pulse Ox 100% ; Weight 70.31 kg; Height 5 bm8 ft. 4 in. ; Pain 10/10; 22:13 BP 108 / 58; Pulse 117; Resp 14; Temp 100.7; Pulse Ox 95% ; Pain 4/10; bm8 21:24 Body Mass Index 26.61 (70.31 kg, 162.56 cm) bm8 20:24 Pain Scale: Adult br2 21:24 Pain Scale: Adult bm8 22:13 Pain Scale: Adult bm8 Yusef Coma Score: 21:24 Eye Response: spontaneous(4). Motor Response: obeys commands(6). Verbal Response: bm8 oriented(5). Total: 15. 22:13 Eye Response: spontaneous(4). Motor Response: obeys commands(6). Verbal Response: bm8 oriented(5). Total: 15. MDM: 20:24 Medical Screening Exam initiated ec2 20:36 Data reviewed: vital signs, nurses notes. ED course: Patient arrives today for upper ec2 respiratory symptoms along with nausea and vomiting. Examination yields well-appearing nontoxic individuals otherwise in no acute distress with a reassuring examination. Will obtain lab work to evaluate for hydration status, will obtain viral swabs as well. Will treat with steroids and DuoNeb given the patient's known history of asthma. Differential diagnose includes asthma exacerbation, viral infection, gastroenteritis, doubt pneumonia given reassuring lung sounds.. 22:20 ED course: On reassessment patient with improvement in symptoms, complete resolution of ec2 his nausea and vomiting. Patient with a reassuring abdominal examination with generalized abdominal TTP. I considered process such as appendicitis however no focal tenderness and patient also with upper respiratory symptoms, suspect viral infection. Will discharge home have patient follow-up with PCP or return with strict return precautions.. 01 20:34 Order name: Influenza Screen (a \T\ B); Complete Time: 22:16 ec2 0112 20:34 Order name: SARS RAPID; Complete Time: 22:16 ec2 12 20:34 Order name: CXR XRAY; Complete Time: 21:32 ec2 03/22 20:34 Order name: IV; Complete Time: 21:29 ec2 Administered Medications: 21:28 Drug: diphenhydrAMINE IVP 25 mg IVP once Route: IVP; Site: left forearm; bm8 22:13 Follow up: Response: No adverse reaction bm8 21:28 Drug: NS 0.9% IV 250 ml IV at bolus once; to be given as a bolus over 30 minutes Route: bm8 IV; Rate: bolus; Site: left forearm; 22:12 Follow up: Response: No adverse reaction; IV Status: Completed infusion; IV Intake: bm8 250ml 21:28 Drug: DuoNeb Nebulize (3:1) (2.5 mg - 0.5 mg) 3 ml Nebulizer once Route: Nebulizer; bm8 22:12 Follow up: Response: No adverse reaction bm8 21:28 Drug: Decadron - Dexamethasone IVP 10 mg IVP once Route: IVP; Site: left forearm; bm8 22:12 Follow up: Response: No adverse reaction bm8 21:29 Drug: metoCLOPramide IVP 10 mg IVP once; over 1 to 2 minutes Route: IVP; Site: left bm8 forearm; 22:13 Follow up: Response: No adverse reaction bm8 21:44 Drug: Acetaminophen PO 1000 mg PO once Route: PO; bm8 22:12 Follow up: Response: No adverse reaction bm8 Disposition Summary: 03/22/24 22:23 Discharge Ordered Notes: Location: Home ec2 Condition: Stable ec2 Diagnosis - Viral infection, unspecified ec2 Followup: ec2 - With: Private Physician - When: - Reason: Re-evaluation by your physician Discharge Instructions: - Discharge Summary Sheet ec2 - Viral Illness, Adult ec2 Forms: - Medication Reconciliation Form ec2 - Antibiotic Education ec2 - Prescription Opioid Use ec2 - Patient Portal Instructions ec2 - Leadership Thank You Letter ec2 Prescriptions: - albuterol sulfate 90 mcg/actuation Inhalation HFA Aerosol Inhaler - inhale 2 puff INHALATION route every 4 hours as needed for bronchospasm; ec2 administer via ventilator; 1 unit; Refills: 0, Product Selection Permitted - Zofran 4 mg Oral Tablet - take 1 tablet ORAL route every 12 hours As needed; 20 tablet; Refills: 0, ec2 Product Selection Permitted - Zithromax Z-Saran 250 mg Oral Tablet - take 1 tablet ORAL route as directed for 5 days Day 1 - take two (2) tablets ec2 one time. Day 2, 3, 4 , 5 take one (1) tablet once daily.; 6 tablet; Refills: 0, Product Selection Permitted - Prednisone 20 mg Oral Tablet - take 2 tablets ORAL route once daily for 5 days; 10 tablet; Refills: 0, Product ec2 Selection Permitted Signatures: Dispatcher [employer] EDMS Toby Sanchez MD MD ec2 Ismael Antonio RN RN bm8 Chantale Larson RN RN br2 Corrections: (The following items were deleted from the chart) 20:34 20:34 Chest Single View+RAD.RAD.BRZ ordered. EDMS EDMS 20:34 20:34 Influenza Screen (A \T\ B)+BA.LAB.BRZ ordered. EDMS EDMS 20:34 20:34 SARS-COV-2 Antigen Rapid+I.LABSHORTY ordered. EDMS EDMS
--- NOTE | 2024-03-22 22:24 | ER ---
Nurse's Notes [facility] Name: Elmer Sanderson Age: 38 yrs Sex: Male : 1985 Arrival Date: 03/22/2024 Time: 20:12 Bed 7 Private MD: Diagnosis: Viral infection, unspecified Presentation: 03/22 20:24 Chief complaint: Patient states: MID STERNAL CP THAT BEGAN LAST NIGHT CONSTANT br2 BURNING/STABBING/PRESSURE, SOB (WHEEZING) ASTHMA, BODYACHES . WAS DX WITH FLU 2 DAYS AGO. Coronavirus screen: Client denies travel out of the [place] in the last 14 days. Ebola Screen: Patient denies exposure to infectious person. Initial Sepsis Screen: Does the patient meet any 2 criteria? No. Patient's initial sepsis screen is negative. Does the patient have a suspected source of infection? No. Patient's initial sepsis screen is negative. Risk Assessment: Do you want to hurt yourself or someone else? Patient reports no desire to harm self or others. Onset of symptoms was March 21, 2024. 20:24 Method Of Arrival: Ambulatory br2 20:24 Acuity: JANICE 3 br2 Historical: - Allergies: 20:28 Codeine; br2 - PMHx: 20:28 Anxiety; depressive disorder; ibs; insomnia; Asthma; br2 - Immunization history:: Adult Immunizations up to date. - Infectious Disease History:: Denies. - Social history:: Smoking status: Patient reports the use of cigarette tobacco products, 1, Reported history of juuling and/or vaping. Screenin:24 [facility] ED Fall Risk Assessment (Adult) History of falling in the last 3 months, bm8 including since admission No falls in past 3 months (0 pts) Confusion or Disorientation No (0 pts) Intoxicated or Sedated No (0 pts) Impaired Gait No (0 pts) Mobility Assist Device Used No (0 pt) Altered Elimination No (0 pt) Score/Fall Risk Level 0 - 2 = Low Risk Oriented to surroundings, Maintained a safe environment, Educated pt \T\ family on fall prevention, incl call for assistance when getting out of bed, Assessed \T\ reinforced patient's understanding of fall precautions, Hourly rounding (assess needs \T\ fall precautionary measures) done, Used ambulatory aids as needed (educated on \T\ assisted with), Used gait belt as appropriate. Abuse screen: Denies threats or abuse. Nutritional screening: No deficits noted. Tuberculosis screening: No symptoms or risk factors identified. Assessment: 21:24 Reassessment: Patient appears in no apparent distress at this time. General: Appears in bm8 no apparent distress. comfortable, Behavior is calm, cooperative, appropriate for age. Pain: Complains of pain in right lower quadrant Pain does not radiate. Pain currently is 10 out of 10 on a pain scale. Pain began lst night. Neuro: No deficits noted. Level of Consciousness is awake, alert, obeys commands, Oriented to person, place, time, situation, Appropriate for age. Cardiovascular: Reports chest pain, shortness of breath, Heart tones S1 S2 present Capillary refill < 3 seconds in bilateral fingers Patient's skin is warm and dry. Rhythm is sinus rhythm. Respiratory: Airway is patent Trachea midline Respiratory effort is even, unlabored, Respiratory pattern is regular, symmetrical, Breath sounds are diminished bilaterally. GI: Reports lower abdominal pain, nausea, Pain is 10 out of 10 on a pain scale. vomiting. : No signs and/or symptoms were reported regarding the genitourinary system. EENT: No signs and/or symptoms were reported regarding the EENT system. Derm: No signs and/or symptoms reported regarding the dermatologic system. Musculoskeletal: Reports generalized body aches. 22:13 Reassessment: No changes from previously documented assessment. Patient and/or family bm8 updated on plan of care and expected duration. Pain level reassessed. Patient is alert, oriented x 3, equal unlabored respirations, skin warm/dry/pink. Patient states feeling better. Patient states symptoms have improved. Vital Signs: 20:24 BP 129 / 77; Pulse 95; Resp 18; Temp 98.6(IR); Pulse Ox 98% ; Weight 69.85 kg; Height 5 br2 ft. 4 in. ; Pain 10/10; 21:24 BP 107 / 65; Pulse 91; Resp 12; Temp 101.9; Pulse Ox 100% ; Weight 70.31 kg; Height 5 bm8 ft. 4 in. ; Pain 10/10; 22:13 BP 108 / 58; Pulse 117; Resp 14; Temp 100.7; Pulse Ox 95% ; Pain 4/10; bm8 21:24 Body Mass Index 26.61 (70.31 kg, 162.56 cm) bm8 20:24 Pain Scale: Adult br2 21:24 Pain Scale: Adult bm8 22:13 Pain Scale: Adult bm8 Yusef Coma Score: 21:24 Eye Response: spontaneous(4). Motor Response: obeys commands(6). Verbal Response: bm8 oriented(5). Total: 15. 22:13 Eye Response: spontaneous(4). Motor Response: obeys commands(6). Verbal Response: bm8 oriented(5). Total: 15. ED Course: 20:15 Patient arrived in ED. ra3 20:20 Toby Sanchez MD is Attending Physician. ec2 20:28 Triage completed. br2 21:01 Ismael Antonio, RN is Primary Nurse. bm8 21:24 Patient has correct armband on for positive identification. Placed in gown. Bed in low bm8 position. Call light in reach. Side rails up X 1. Adult w/ patient. Client placed on continuous cardiac and pulse oximetry monitoring. NIBP monitoring applied. hall monitor on. Pulse ox on. NIBP on. Door closed. Noise minimized. Warm blanket given. Pillow given. Head of bed elevated. 21:24 No provider procedures requiring assistance completed. Initial lab(s) drawn, by me, bm8 sent to lab. COVID swab sent to lab. Flu and/or RSV swab sent to lab. Inserted saline lock: 18 gauge in left forearm, using aseptic technique. Blood collected. Flushed with 10 mL NS. Patient maintains SpO2 saturation greater than 95% on room air. 21:29 CXR XRAY In Process Unspecified. EDMS 22:26 IV discontinued, intact, bleeding controlled, No redness/swelling at site. Pressure vk dressing applied. 22:30 Provided Education on: post er care. bm8 22:31 Arm band placed on right wrist. bm8 22:31 IV discontinued, intact, bleeding controlled, No redness/swelling at site. Pressure bm8 dressing applied. Administered Medications: 21:28 Drug: diphenhydrAMINE IVP 25 mg IVP once Route: IVP; Site: left forearm; bm8 22:13 Follow up: Response: No adverse reaction bm8 21:28 Drug: NS 0.9% IV 250 ml IV at bolus once; to be given as a bolus over 30 minutes Route: bm8 IV; Rate: bolus; Site: left forearm; 22:12 Follow up: Response: No adverse reaction; IV Status: Completed infusion; IV Intake: bm8 250ml 21:28 Drug: DuoNeb Nebulize (3:1) (2.5 mg - 0.5 mg) 3 ml Nebulizer once Route: Nebulizer; bm8 22:12 Follow up: Response: No adverse reaction bm8 21:28 Drug: Decadron - Dexamethasone IVP 10 mg IVP once Route: IVP; Site: left forearm; bm8 22:12 Follow up: Response: No adverse reaction bm8 21:29 Drug: metoCLOPramide IVP 10 mg IVP once; over 1 to 2 minutes Route: IVP; Site: left bm8 forearm; 22:13 Follow up: Response: No adverse reaction bm8 21:44 Drug: Acetaminophen PO 1000 mg PO once Route: PO; bm8 22:12 Follow up: Response: No adverse reaction bm8 Medication: 21:24 VIS not applicable for this client. bm8 Intake: 22:12 IV: 250ml; Total: 250ml. bm8 Outcome: 22:23 Discharge ordered by . ec2 22:30 Discharged to home ambulatory, with family, bm8 22:30 Condition: stable 22:30 Discharge instructions given to patient, family, Instructed on discharge instructions, follow up and referral plans. Demonstrated understanding of instructions, follow-up care, medications, Prescriptions given X 4, 22:31 Patient left the ED. bm8 Signatures: Dispatcher [employer] Toby Cheek MD MD ec2 Laura Luna ra3 Zuleyka Felix Brad RN RN bm8 Chantale Larson RN RN br2
[2024-03-24 16:18] VITALS: BP 108/58; TEMP 100.7; O2SAT 95
== END 2024-03-22 22:31 | disposition home or self-care (01) ==
LOC: ER 20:12
DX: B34.9 Viral infection, unspecified (principal); J45.909 Unspecified asthma, uncomplicated; F17.290 Nicotine dependence, other tobacco product, uncomplicated; Z11.52 Encounter for screening for COVID-19; Z88.5 Allergy status to narcotic agent
CPT/HCPCS: 96361; 36415; 87804 ×2; 71045; 96375; 96374; 99285; 87811; J2765; J1200; J7613; J7644; J1100; J7050

== ENCOUNTER 2024-07-01 23:51 | Emergency (ER) | payer OTHER ==
--- OUTSIDE RECORDS SUMMARY | 2024-07-01 23:54 | XMS REPORT | Continuity of Care Document ---
Author Name Unknown Address [address] [place] [address] [facility] Address [address] [facility] [address] [place] [address] Care Team Providers Care Youth Worker Name Role Phone Dana Delgado Primary Care Physician [phone] JODIE NICE Attending Clinician Unavailable JODIE NICE Attending Clinician Unavailable Jodie Keith Attending Clinician [phone] ALICIA LITTLE Attending Clinician Unavailable MICHELLE RODRIGUEZ Attending Clinician Unavailab WINSTON Becerra Attending Clinician Unavailab marito Paybrayden Payer Name Policy Type Policy Number Effective Date Expirati on Date Source [facility] [id number] 2024-04-11 00:00:00 [facility] JUDY HAN COPAY FOCUS 9 [id number] 2023-08-10 00:00:00 Problems Condition Name Condition Details Condition Category Status Onset Date Resolution Date Last Treatment Date Treating Clinician Comments Source Multiple open fractures of distal phalanx of finger, initial encounter Multiple open fractures of distal phalanx of finger, initial encounter Disease Active 12-03 00:00: 00 [facility] Allergies, Adverse Reactions, Alerts Allergy Name Allergy Type Status Severity Reaction(s) Onset Date Inactive Date Treating Clinician Comments Source Codeine (Not Checked) Propensi ty to adverse reaction to drug Active 11-21 00:00: 00 Jewel Zamudio Codeine Propensi ty to adverse reaction s Active Anaphylaxis 09-02 00:00: 00 Clotilde Bella - Externa l CODEINE DRUG INGREDI Active Swelling 12-03 00:00: 00 [facility] Codeine Propensi ty to adverse reaction s Active Swelling 12-03 00:00: 00 Throat swelling [facility] Social History Social Habit Start Date Stop Date Quantity Comments Source History of tobacco use Cigar Smoker [facility]ilde Bella [facility] of Social function 2021-08-08 00:00:00 2021-08-08 00:00:00 [facility] Tobacco use and exposure 2016-12-03 00:00:00 2016-12-03 00:00:00 Smokeless tobacco non-user [facility] Sex assigned at 1985 00:00:00 1985 00:00:00 [facility] Smoking Status Start Date Stop Date Source Smokes tobacco daily 2023-09-03 00:00:00 Clotilde Bella - External Never smoked tobacco [facility] Medications Ordered Medication Name Filled Medication Name Start Date Stop Date Current Medication? Ordering Clinician Indication Dosage Frequency Signature (SIG) Comments Components Source ondansetron (ZOFRAN-ODT ) disintegrat ing tablet 4 mg 06-26 05:45: 00 06-26 05:19 :00 No 4mg 4 mg, Oral, ONCE, 1 dose, On Sat06/26/24 at 0045, Routine [facility] albuterol (PROVENTIL) 2.5 mg /3 mL (0.083 %) nebulizer solution 2.5 mg 06-26 05:45: 00 06-26 05:22 :00 No 2.5mg 2.5 mg, Inhalation , ONCE NOW, 1 dose, On Sat06/26/24 at 0045, Routine [facility] ipratropium (ATROVENT) 0.02 % nebulizer solution 0.5 mg 06-26 05:45: 00 06-26 05:22 :00 No .5mg 0.5 mg, Inhalation , ONCE NOW, 1 dose, On 4/18/25 at 0045, Routine [facility] albuterol sulfate HFA 90 mcg/actuati on aerosol inhaler 06-26 00:00: 00 Yes [id number] 2{puff} Inhale 2 Puffs every 4 (four) hours as needed for Wheezing or Shortness of Breath. [facility] methylPREDN ISolone (MEDROL, MARIELLE,) 4 mg tablets 06-26 00:00: 00 Yes [id number] Take by mouth SEE-INSTRU CTIONS. follow package directions [facility] ondansetron 4 mg disintegrat ing tablet 06-26 00:00: 00 Yes [id number] 4mg Take 1 tablet by mouth every 8 (eight) hours as needed for Nausea and Vomiting (N/V). [facility] Zoloft 100 mg tablet 06-02 00:00: 00 Yes 1mg Jewel Zamudio Seroquel 100 mg tablet 06-02 00:00: 00 Yes 1mg Jewel Zamudio albuterol sulfate HFA 90 mcg/actuati on aerosol inhaler 04-17 00:00: 00 Yes 12mcg/a ctuatio n Jewel Zamudio montelukast 10 mg tablet 04-17 00:00: 00 Yes 1mg Jewel Zamudio albuterol sulfate HFA 90 mcg/actuati on aerosol inhaler 11-21 00:00: 00 Yes 1mcg/ac tuation Jewel Zamudio Zoloft 100 mg tablet 11-21 00:00: 00 Yes 1mg Jewel Zamudio Seroquel 100 mg tablet 11-21 00:00: 00 Yes 1mg Jewel Zamudio Albuterol HFA 108 (90 Base) MCG/ACT IN AERS 06-23 00:00: 00 Yes INHALE 1 PUFF BY MOUTH EVERY 4-6 HOURS NEEDED FOR BRONCHOSPA SM. Clotilde Bella - Merly flowers Vital Signs Vital Name Observation Time Observation Value Comments Diego sutton Systolic blood pressure 2024-06-26 05:38:00 120 mm[Hg] [place] [facility] Diastolic blood pressure 2024-06-26 05:38:00 69 mm[Hg] [facility] Heart rate 2024-06-26 05:38:00 78 /min [facility] Body temperature 2024-06-26 05:38:00 36.44 Juani [facility] Respiratory rate 2024-06-26 05:38:00 12 /min [facility] Oxygen saturation in Arterial blood by Pulse oximetry 2024-06-26 05:38:00 100 /min [facility] Body height 2024-06-26 04:44:00 162.6 cm [facility] Body weight 2024-06-26 04:44:00 71.668 kg [facility] BMI 2024-06-26 04:44:00 27.12 kg/m2 [facility] Systolic blood pressure 2023-09-03 19:02:00 132 mm[Hg] [...] 98 /min Clotilde Beckfordybo ld - External Weight Measured 2024-04-17 14:21:00 145.00 pounds Jewel Zamudio Height Measured 2024-04-17 14:21:00 64.50 inches Jewel Zamudio Body Temperature 2024-04-17 14:21:00 98.20 degrees Jewel Zamudio Heart Rate 2024-04-17 14:21:00 90.00 /min Shelia Zamudio Respiratory Rate 2024-04-17 14:21:00 18.00 /min Jewel Zamudio BP Systolic 2024-04-17 14:21:00 118 mm[Hg] Man Zamudio BP Diastolic 2024-04-17 14:21:00 78 mm[Hg] Jaime Zamudio Encounters Start Date/Time End Date/Time Encounter Type Admission Type Attending [facility] Care Department Encounter ID Source 2024-06-25 23:48:00 2024-06-26 00:49:00 Emergency X JODIE NICE [facility]IC[facility] ERT [id number] [facility] 2024-06-25 23:48:00 2024-06-26 00:49:00 Emergency Jodie Nice [facility] [id number] [facility] 2024-06-24 17:04:50 2024-06-24 17:04:50 Outpatient SFA SFA [id number] Jewel Zamudio 2024-06-24 00:00:00 2024-06-24 00:00:00 Outpatient Visit SFA [id number] Jewel Zamudio 2024-06-02 14:07:50 2024-06-02 14:07:50 Outpatient SFA SFA [id number] Jewel Zamudio 2024-04-18 09:28:00 2024-04-18 09:28:00 Outpatient SFA SFA [id number] Jewel Zamudio 2024-04-17 14:17:32 2024-04-17 14:17:32 Outpatient SFA SFA [id number] Jewel Zamudio 2024-04-17 00:00:00 2024-04-17 00:00:00 Outpatient Visit SFA [id number] Jewel Zamudio 2024-01-27 15:30:00 2024-01-27 15:30:00 Outpatient ALICIA LITTLE CLOTILDE CRAWLEY [id number] [facility] 2023-11-26 13:43:51 2023-11-26 13:43:51 Outpatient SFA SFA [id number] Jewel Zamudio 2023-11-22 10:22:57 2023-11-22 10:22:57 Outpatient SFA SFA [id number] Jewel Zamudio 2023-11-21 14:45:00 2023-11-21 14:45:00 Outpatient MICHELLE RODRIGUEZ [id number] [facility] 2023-11-11 00:00:00 2023-11-11 00:00:00 Outpatient WINSTON CAMACHO [id number] [facility] 2023-10-03 11:30:00 2023-10-03 11:30:00 Outpatient WINSTON CAMACHO [id number] [facility] 2023-09-03 14:00:00 2023-09-03 14:00:00 Outpatient DOUG WINSTON CRAWLEY [id number] [facility] 2023-08-13 10:00:00 2023-08-13 10:00:00 Outpatient DOUGWINSTON [id number] [facility] Results Test Description Test Time Test Comments Results Result Co mments Source HIV 1/2 4TH GEN, RFLX CONF [ADDED]2024-04-21 00:00:00* Test Item Value Reference Range Interpretation Comme nts HIV 1/2 4TH GEN, RFLX CONF ( test code = 3514) NON-REACTIVE Jewel ZamudioHIV 1/2 4TH GEN, RFLX CONF [ADDED]2024-04-21 00:00:00* Test Item Value Reference Range Interpretation Comme nts HIV 1/2 4TH GEN, RFLX CONF ( test code = 3514) NON-REACTIVE Jewel ZamudioLIPID [id number] 00:40:10* Test Item Value Reference Range Interpretation Comme nts CHOLESTEROL (test code = 2210) 204 MG/DL <200 H TRIGLYCERIDES (test code = 2232) 97 MG/DL <150 HDL CHOLESTEROL (test code = 2220) 66 MG/DL >39 CALC LDL CHOL (test code = 2237) 118 MG/DL <100 H NOTE: CALCULATED LDL IS BASED ON ADORE-WILLIAMSON METHOD WHICHINCLUDES ADJUSTABLE TRIGLYCERIDE:VLDL CHOLESTEROL RATIO.THIS FACTOR VARIES BY MEASURED TRIGLYCERIDE AND NON-HDLCHOLESTEROL CONCENTRATIONS WITH INCREASED CALCULATED LDL SEENIN HIGHER TRIGLYCERIDE OR LOWER NON-HDL SPECIMENS. FOR MOREINFORMATION, SEE CLIENT ANNOUNCEMENT AT [email or web address] RISK RATIO LDL/HDL (test code = 223) 1.79 RATIO <3.55 COMPREHENSIVE METABOLIC [id number] 00:40:10* Test Item Value Reference Range Interpretation Comme nts GLUCOSE (test code = 2216) 82 MG/DL 70-99 BUN (test code = 2207) 15 MG/DL 6-20 CREATININE (test code = 2214) 1.32 MG/DL 0.80-1.40 eGFR (2020 CKD-EPI) (test co de = 14150) 71 ML/MIN/1.73 >60 CALC BUN/CREAT (test code = 2235) 11 RATIO 6-28 SODIUM (test code = 223) 141 MEQ/L 133-146 POTASSIUM (test code = 2228) 4.5 MEQ/L 3.5-5.4 CHLORIDE (test code = 2215) 106 MEQ/L 95-107 CARBON DIOXIDE (test code = 2206) 25 MEQ/L 19-31 CALCIUM (test code = 2209) 8.7 MG/DL 8.5-10.5 PROTEIN, TOTAL (test code = 2229) 5.5 G/DL 6.1-8.3 L ALBUMIN (test code = 2201) 3.7 G/DL 3.5-5.2 CALC GLOBULIN (test code = 2240) 1.8 G/DL 1.9-3.7 L CALC A/G RATIO (test code = 2234) 2.1 RATIO 1.0-2.6 BILIRUBIN, TOTAL (test code = 2207) <0.2 MG/DL <=1.2 ALKALINE PHOSPHATASE (test code = 2204) 93 U/L 40-117 AST (test code = 2218) 22 U/L 9-50 ALT (test code = 2219) 22 U/L 5-50 LIPID [id number] 00:00:00* Test Item Value Reference Range Interpretation Comme nts CHOLESTEROL (test code = 2210) 204 MG/DL TRIGLYCERIDES (test code = 2232) 97 MG/DL HDL CHOLESTEROL (test code = 2220) 66 MG/DL CALC LDL CHOL (test code = 2237) 118 MG/DL RISK RATIO LDL/HDL (test cod e = 2238) 1.79 RATIO Jewel ZamudioCOMPREHENSIVE METABOLIC [id number] 00:00:00* Test Item Value Reference Range Interpretation Comme nts GLUCOSE (test code = 2217) 82 MG/DL BUN (test code = 2208) 15 MG/DL CREATININE (test code = 2214) 1.32 MG/DL eGFR (2020 CKD-EPI) (test co de = 38918) 71 ML/MIN/1.73 CALC BUN/CREAT (test code = 2235) 11 RATIO SODIUM (test code = 2231) 141 MEQ/L POTASSIUM (test code = 2228) 4.5 MEQ/L CHLORIDE (test code = 2215) 106 MEQ/L CARBON DIOXIDE (test code = 2206) 25 MEQ/L CALCIUM (test code = 2209) 8.7 MG/DL PROTEIN, TOTAL (test code = 2229) 5.5 G/DL ALBUMIN (test code = 2201) 3.7 G/DL CALC GLOBULIN (test code = 2240) 1.8 G/DL CALC A/G RATIO (test code = 2234) 2.1 RATIO BILIRUBIN, TOTAL (test code = 2207) <0.2 MG/DL ALKALINE PHOSPHATASE (test code = 2204) 93 U/L AST (test code = 2218) 22 U/L ALT (test code = 2219) 22 U/L Jewel Allen AustinLIPID [id number] 00:00:00* Test Item Value Reference Range Interpretation Comme nts CHOLESTEROL (test code = 2210) 204 MG/DL TRIGLYCERIDES (test code = 2232) 97 MG/DL HDL CHOLESTEROL (test code = 2220) 66 MG/DL CALC LDL CHOL (test code = 2237) 118 MG/DL RISK RATIO LDL/HDL (test cod e = 2238) 1.79 RATIO Jewel ZamudioCOMPREHENSIVE METABOLIC [id number] 00:00:00* Test Item Value Reference Range Interpretation Comme nts GLUCOSE (test code = 2217) 82 MG/DL BUN (test code = 2208) 15 MG/DL CREATININE (test code = 2214) 1.32 MG/DL eGFR (2020 CKD-EPI) (test co de = 04315) 71 ML/MIN/1.73 CALC BUN/CREAT (test code = 2235) 11 RATIO SODIUM (test code = 2231) 141 MEQ/L POTASSIUM (test code = 2228) 4.5 MEQ/L CHLORIDE (test code = 2215) 106 MEQ/L CARBON DIOXIDE (test code = 2206) 25 MEQ/L CALCIUM (test code = 2209) 8.7 MG/DL PROTEIN, TOTAL (test code = 2229) 5.5 G/DL ALBUMIN (test code = 2201) 3.7 G/DL CALC GLOBULIN (test code = 2240) 1.8 G/DL CALC A/G RATIO (test code = 2234) 2.1 RATIO BILIRUBIN, TOTAL (test code = 2207) <0.2 MG/DL ALKALINE PHOSPHATASE (test code = 2204) 93 U/L AST (test code = 2218) 22 U/L ALT (test code = 2219) 22 U/L Jewel Tiffany Robb Notes Date/Time Note Provider Source 2024-06-26 00:47:16 Patient given discharge instructions, and verbalized no further concerns or questions. Skin p/w/d, rr equal and non labored. A&Ox4. Ambulated independently with a steady gait in stable condition. Lyssa Pelayo RN [facility] 2024-06-25 23:43:20 Pt arrived ambulatory without assist. Pt with him, okay to discuss medical care in front of her. 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 Monie Hoover RN [facility]2025-02-07 00:00:00 [facility]
--- NOTE | 2024-07-02 00:22 | EDPHYS ---
Physician Documentation [facility] Name: Elmer Sanderson Age: 39 yrs Sex: Male : 1985 Arrival Date: 07/01/2024 Time: 23:51 Bed 15 Private MD: ED Physician Esdras Cates HPI: 07/01 23:57 This 39 yrs old Black Male presents to ER via Unassigned with complaints of Mental kb eval/ pt is seeing and hearing things. 23:57 Pt is a 39 year old male who presents for auditory and visual hallucinations that kb started about 5 years ago. States he was prescribed zoloft and seroquel for this, but the zoloft makes it worse. States he was off of the medications for a while, but started back on them 3 weeks ago. States the hallucinations are getting worse so that is what made him come in this evening. Denies suicidal or homicidal ideations. States he sees people and shadows, hears people and sometimes feels the bed moving. Reports paranoia because of the hallucinations.. Historical: - Allergies: 07/02 00:26 Codeine; vc1 - Home Meds: 00:26 Seroquel Oral [Active]; Zoloft Oral [Active]; vc1 - PMHx: 00:26 Anxiety; Asthma; depressive disorder; ibs; insomnia; vc1 - PSHx: 00:26 None; vc1 - Immunization history:: Client reports receiving the 2nd dose of the Covid vaccine, Flu vaccine is not up to date. - Infectious Disease History:: Denies. - Social history:: Smoking status: Patient reports the use of cigarette tobacco products, denies chronic smoking, but will smoke occasionally, cigars, Reported history of juuling and/or vaping. ROS: 07/01 23:57 Constitutional: As per HPI kb Exam: 23:57 Constitutional: This is a well developed, well nourished patient who is awake, alert, kb and in no acute distress. Head/Face: Normocephalic, atraumatic. ENT: Moist Mucous membranes Cardiovascular: Regular rate Respiratory: Respirations even and unlabored. No increased work of breathing. Talking in full sentences Skin: Warm, dry with normal turgor. Normal color. MS/ Extremity: Pulses equal, no cyanosis. Neurovascular intact. Full, normal range of motion. Neuro: Awake and alert, GCS 15, oriented to person, place, time, and situation. 23:57 Psych: Behavior/mood is pleasant, cooperative, Affect is animated, Oriented to person, place, time, Patient has no thoughts/intents to harm self or others. Vital Signs: 07/02 00:24 BP 138 / 91; Pulse 98; Resp 14; Temp 98.9; Pulse Ox 97% ; Weight 68.04 kg; Height 5 ft. vc1 4 in. ; Pain 0/10; 00:53 BP 135 / 90; Pulse 99; Resp 16; Pulse Ox 97% ; Pain 0/10; mb12 07:39 BP 150 / 89; Pulse 90; Resp 17; Temp 98; Pulse Ox 97% ; Pain 0/10; ll1 00:24 Body Mass Index 25.75 (68.04 kg, 162.56 cm) vc1 00:24 Pain Scale: Adult vc1 00:53 Pain Scale: Adult mb12 07:39 Pain Scale: Adult ll1 [place] Coma Score: 00:53 Eye Response: spontaneous(4). Motor Response: obeys commands(6). Verbal Response: mb12 oriented(5). Total: 15. MDM: 07/01 23:56 Medical Screening Exam initiated kb 07/02 00:14 Differential diagnosis: psychosis, paranoia, auditory/visual hallucinations. Data kb reviewed: vital signs, nurses notes. Consideration of Admission/Observation Escalation of care including admission/observation considered. pt will be transferred for inpatient psych. Historians other than the Patient: Spouse/Significant Other: significant other. 00:16 Counseling: I had a detailed discussion with the patient and/or guardian regarding the historical points, exam findings, and any diagnostic results supporting the discharge/admit diagnosis, lab results, the need to transfer to another facility, [facility] does not immediately have the required specialist. ED course: Pt states he does not want to go home. Pt and spouse believe he needs to go to inpatient psych due to worsening hallucinations and paranoia. Pt will go on voluntary basis. . 00:21 Transition of care: After a detail discussion of the patient's case, care is kb transferred to Esdras Cates MD. 07/02 00:16 Order name: Acetaminophen; Complete Time: 02:02 kb 07/02 00:16 Order name: Basic Metabolic Panel; Complete Time: 02:02 kb 07/02 00:16 Order name: CBC with Diff; Complete Time: 02:02 kb 07/02 00:16 Order name: ETOH Level; Complete Time: 02:02 kb 07/02 00:16 Order name: Hepatic Function; Complete Time: 02:02 kb 07/02 00:16 Order name: PT-INR; Complete Time: 02:02 kb 07/02 00:16 Order name: Ptt, Activated; Complete Time: 02:02 kb 07/02 00:16 Order name: Salicylate; Complete Time: 02:02 kb 07/02 00:16 Order name: Urine Drug Screen; Complete Time: 07:11 kb 07/02 00:16 Order name: EKG; Complete Time: 00:16 kb 07/02 00:16 Order name: EKG - Nurse/Tech; Complete Time: 00:41 kb 07/02 00:16 Order name: IV Saline Lock; Complete Time: 00:51 kb 07/02 00:16 Order name: Labs collected and sent; Complete Time: 00:51 kb 07/02 00:16 Order name: Suicide Screening ([place]); Complete Time: 00:58 kb Administered Medications: 00:42 Drug: Ativan IVP 1 mg IVP once Route: IVP; Site: right antecubital; mb12 00:51 Follow up: Response: No adverse reaction mb12 02:15 Drug: Ondansetron IVP 4 mg IVP once; over 2 minutes Route: IVP; Site: right antecubital;mb12 02:38 Follow up: Response: No adverse reaction mb12 Disposition: 21:38 Co-signature as Attending Physician, Esdras Cates MD I reviewed the patient's care rn provided by the Advanced Practice Provider and agree with the diagnosis and treatment plan. Disposition Summary: 07/02/24 00:21 Transfer Ordered Notes: Transfer Location: Psych Facility kb Reason: Higher level of care kb Condition: Stable kb Problem: new kb Symptoms: are unchanged kb Accepting Physician: (07/02/24 07:51) ll1 Diagnosis - Auditory hallucinations kb - Visual hallucinations kb - Unspecified psychosis not due to a substance or known physiological condition kb Forms: - Medication Reconciliation Form kb - SBAR form kb Signatures: Dispatcher [employer] Edwige England FNP-C PJ-CkEsdras Gutiérrez MD MD rn Lewis, Lynsay RN RN ll1 Darcie Nichole RN RN vc1 Fiona Craven 12 Corrections: (The following items were deleted from the chart) 00:14 07/01 23:57 Pt is a 39 year old male who presents for auditory and visual kb hallucinations that started about 5 years ago. States he was prescribed zoloft and seroquel for this, but the zoloft makes it worse. States he was off of the medications for a while, but started back on them 3 weeks ago. States the hallucinations are getting worse so that is what made him come in this evening. Denies suicidal or homicidal ideations. States he sees people and shadows, hears people and sometimes feels the bed moving. . jasmyne 07/02 00:16 00:16 ACETAMINOPHEN+C.LAB.BRZ ordered. EDMS EDMS 00:16 00:16 BASIC METABOLIC PANEL+C.LAB.BRZ ordered. EDMS EDMS 00:16 00:16 CBC+H.LAB.BRZ ordered. EDMS EDMS 00:16 00:16 ETHANOL+C.LAB.BRZ ordered. EDMS EDMS 00:16 00:16 HEPATIC FUNCTION+C.LAB.BRZ ordered. EDMS EDMS 00:16 00:16 PROTIME (+INR)+COAG.LAB.BRZ ordered. EDMS EDMS 00:16 00:16 PTT, ACTIVATED+COAG.LAB.BRZ ordered. EDMS EDMS 00:16 00:16 SALICYLATE+C.LAB.BRZ ordered. EDMS EDMS 00:41 00:16 URINE DRUG SCREEN+UC.LAB.BRZ ordered. EDMS EDMS 07:51 00:21 Dr medley ll1
[2024-07-02] MEDS ORDERED: LORazepam 2 MG/ML VIAL ONE (00:33)
[2024-07-02 00:53] LABS: Absolute Lymphocytes (CBC) 1.3 K/uL (0.7-4.9); Absolute Monocytes 0.6 K/uL (0.1-1.3); Absolute Neutrophil 4.4 K/uL (1.8-8.0); Basophils % 0.8 % (0-1.3); Eosinophils % 0.3 % (0-4.4); Hematocrit 43.9 % (39.6-49.0); Lymphocytes % 20.1 % (15.3-44.8); MCH 31.8 pg (27.0-35.0); MCHC 34.1 g/dL (32.0-36.0); MCV 93.1 fL (80-100); MPV 7.2 fL (7.6-11.3); Monocytes % 10.2 % (3.3-12.3); Neutrophils % 68.6 % (41.7-73.7); Nucleated Red Blood Cells % 0.5 % (0-0); Platelets 265 thou/uL (152-406); RBC Red Blood Cell Count 4.72 M/uL (4.33-5.43); Red Cell Distribution Width 15.5 % (12.1-15.2)
[2024-07-02 01:19] LABS: ALT/SGPT 32 U/L (16-61); AST/SGOT 31 U/L (15-37); Albumin 4.2 g/dL (3.4-5.0); Albumin/Globulin Ratio 1.1 (1.1-1.8); Alkaline Phosphatase 83 U/L (45-117); Anion Gap 6.6 mEq/L (5.0-15.0); BUN Blood Urea Nitrogen 15 mg/dL (7-18); Bicarbonate 29 mEq/L (21-32); Bilirubin Direct 0.2 mg/dL (0-0.2); Bilirubin Indirect, Calculated 0.5 mg/dL (0.2-0.8); Bilirubin Total 0.7 mg/dL (0.2-1.0); Glomerular Filtration Rate 62 ml/min (=/>90); Glucose Level 100 mg/dL (74-106); Potassium 3.6 mEq/L (3.5-5.1); Protein, Total 8.2 g/dL (6.4-8.2); Sodium Level 135 mEq/L (136-145)
[2024-07-02 01:41] LABS: PT Prothrombin Time 12.1 SECONDS (10-13.0); PTT, Activated Partial Thromb 31.4 SECONDS (27.2-37.4); Protime INR 1.06
[2024-07-02] MEDS ORDERED: ONDANSETRON 4 MG/2 ML VIAL ONE (02:16)
[2024-07-02 02:44] LABS: Barbiturates NEGATIVE (NEGATIVE); Benzodiazepines NEGATIVE (NEGATIVE); Cocaine NEGATIVE (NEGATIVE); METHAMPHETAM POSITIVE (NEGATIVE); Methadone NEGATIVE (NEGATIVE); Opiates NEGATIVE (NEGATIVE); Phencyclidine NEGATIVE (NEGATIVE); THC Cannibis POSITIVE (NEGATIVE)
--- NOTE | 2024-07-02 07:51 | ER ---
Nurse's Notes [facility] Name: Elmer Sanderson Age: 39 yrs Sex: Male : 1985 Arrival Date: 07/01/2024 Time: 23:51 Bed 15 Private MD: Diagnosis: Auditory hallucinations;Visual hallucinations;Unspecified psychosis not due to a substance or known physiological condition Presentation: 07/02 00:22 Chief complaint:. vc1 00:24 Chief complaint: Patient states: visual and auditory hallucinations getting worse after vc1 starting back on medication 3 weeks ago. Coronavirus screen: Client denies travel out of the [place] in the last 14 days. At this time, the client does not indicate any symptoms associated with coronavirus-19. Ebola Screen: Patient negative for fever greater than or equal to 101.5 degrees Fahrenheit, and additional compatible Ebola Virus Disease symptoms Patient denies exposure to infectious person. Patient denies travel to an Ebola-affected area in the 21 days before illness onset. No symptoms or risks identified at this time. Initial Sepsis Screen: Does the patient meet any 2 criteria? No. Patient's initial sepsis screen is negative. Does the patient have a suspected source of infection? No. Patient's initial sepsis screen is negative. Risk Assessment: Do you want to hurt yourself or someone else? Patient reports no desire to harm self or others. Onset of symptoms is unknown. Care prior to arrival: None. 00:24 Method Of Arrival: Ambulatory vc1 00:24 Acuity: JANICE 2 vc1 Triage Assessment: 00:28 General: Appears in no apparent distress. uncomfortable, Behavior is cooperative, vc1 anxious, flat, Reports auditory and visual hallucinations. Pain: Denies pain. EENT: No deficits noted. No signs and/or symptoms were reported regarding the EENT system. Neuro: Level of Consciousness is awake, alert, obeys commands, Oriented to person, place, time, situation, Appropriate for age. Cardiovascular: Capillary refill < 3 seconds Patient's skin is warm and dry. Respiratory: Airway is patent Respiratory effort is even, unlabored, Respiratory pattern is regular, symmetrical, Breath sounds are clear bilaterally. GI: No deficits noted. No signs and/or symptoms were reported involving the gastrointestinal system. : No deficits noted. No signs and/or symptoms were reported regarding the genitourinary system. Derm: Skin is intact, is healthy with good turgor, Skin is dry, Skin is normal, Skin temperature is warm. Musculoskeletal: Circulation, motion, and sensation intact. Range of motion: intact in all extremities. Historical: - Allergies: 00:26 Codeine; vc1 - Home Meds: 00:26 Seroquel Oral [Active]; Zoloft Oral [Active]; vc1 - PMHx: 00:26 Anxiety; Asthma; depressive disorder; ibs; insomnia; vc1 - PSHx: 00:26 None; vc1 - Immunization history:: Client reports receiving the 2nd dose of the Covid vaccine, Flu vaccine is not up to date. - Infectious Disease History:: Denies. - Social history:: Smoking status: Patient reports the use of cigarette tobacco products, denies chronic smoking, but will smoke occasionally, cigars, Reported history of juuling and/or vaping. Screenin:55 [facility] ED Fall Risk Assessment (Adult) History of falling in the last 3 months, mb12 including since admission No falls in past 3 months (0 pts) Confusion or Disorientation No (0 pts) Intoxicated or Sedated No (0 pts) Impaired Gait No (0 pts) Mobility Assist Device Used No (0 pt) Altered Elimination No (0 pt) Score/Fall Risk Level 0 - 2 = Low Risk Oriented to surroundings, Maintained a safe environment, Educated pt \\T\\ family on fall prevention, incl call for assistance when getting out of bed, Assessed \\T\\ reinforced patient's understanding of fall precautions, Provided non-skid footwear. Abuse screen: Denies threats or abuse. Denies injuries from another. Nutritional screening: No deficits noted. Tuberculosis screening: No symptoms or risk factors identified. Assessment: 00:52 General: Appears comfortable, Behavior is calm, cooperative, restless, Reports. Pain: mb12 Denies pain. Neuro: No deficits noted. Level of Consciousness is awake, alert, obeys commands, Oriented to person, place, time, situation, Appropriate for age. Cardiovascular: No deficits noted. Respiratory: No deficits noted. 07:39 General: Appears in no apparent distress. Behavior is calm, cooperative, appropriate ll1 for age. Pain: Denies pain. 07:41 Neuro: No deficits noted. Cardiovascular: No deficits noted. Respiratory: No deficits ll1 noted. Psych: 00:54 [place] Suicide Severity Screening: In the past month, have you wished you were mb12 or wished you could go to sleep and not wake up? Patient responds "No." "In the past month, have you actually had any thoughts of killing yourself?" Patient responds "no." "In your lifetime, have you ever done anything, started to do anything, or prepared to do anything to end your life?" Patient responds "no.". Subjective: Patient's mood is sad, Delusions are denied, Hallucinations are auditory, visual, Having thoughts of. Subjective:. Objective: Patient is cooperative, guarded, restless, suspicious. Safety Checks: Patient uses Patient uses marijuana Patient uses tobacco. Commitment: Patient will be a voluntary commitment. 07:50 Interventions: belongings with patient at transfer. ll1 Vital Signs: 00:24 BP 138 / 91; Pulse 98; Resp 14; Temp 98.9; Pulse Ox 97% ; Weight 68.04 kg; Height 5 ft. vc1 4 in. ; Pain 0/10; 00:53 BP 135 / 90; Pulse 99; Resp 16; Pulse Ox 97% ; Pain 0/10; mb12 07:39 BP 150 / 89; Pulse 90; Resp 17; Temp 98; Pulse Ox 97% ; Pain 0/10; ll1 00:24 Body Mass Index 25.75 (68.04 kg, 162.56 cm) vc1 00:24 Pain Scale: Adult vc1 00:53 Pain Scale: Adult mb12 07:39 Pain Scale: Adult ll1 Vitals: 00:53 Cardiac Rhythm Assessment Regular Sinus rhythm. mb12 [place]us[place] Coma Score: 00:53 Eye Response: spontaneous(4). Motor Response: obeys commands(6). Verbal Response: mb12 oriented(5). Total: 15. ED Course: 07/01 23:53 Patient arrived in ED. gm2 23:56 Edwige Cowart [facility]-C [facility]. kb 23:56 Esdras Cates MD is Attending Physician. kb 07/02 00:13 Fiona Craven is Primary Nurse. mb12 00:26 Triage completed. vc1 00:27 Arm band placed on right wrist. vc1 00:41 Salicylate Sent. mb12 00:41 Ptt, Activated Sent. mb12 00:41 PT-INR Sent. mb12 00:41 Hepatic Function Sent. mb12 00:41 ETOH Level Sent. mb12 00:41 CBC with Diff Sent. mb12 00:41 Basic Metabolic Panel Sent. mb12 00:41 Acetaminophen Sent. mb12 00:55 Patient has correct armband on for positive identification. Bed in low position. Call 12 light in reach. Side rails up X 1. 00:55 Inserted saline lock: 20 gauge in right antecubital area, using aseptic technique. 12 02:44 Faxed pt clinicals to the following facilities for placement; [facility] and [address] 03:35 Pt auto-accepted to [facility] by Dr. Nam. Pt is to be sent after [facility] according to Hattie Augustine at [facility]. 07:00 Provided Education on: EMS on the way for transfer. Gait steady to restroom. 1 07:49 No provider procedures requiring assistance completed. Patient did not have IV access ll1 during this emergency room visit. Administered Medications: 00:42 Drug: Ativan IVP 1 mg IVP once Route: IVP; Site: right antecubital; 12 00:51 Follow up: Response: No adverse reaction 12 02:15 Drug: Ondansetron IVP 4 mg IVP once; over 2 minutes Route: IVP; Site: right antecubital;12 02:38 Follow up: Response: No adverse reaction 12 Medication: 07:50 VIS not applicable for this client. ll1 Outcome: 00:21 ER care complete, transfer ordered by . kb 07:49 Transferred by ground EMS Transfer form completed. Note: [place] [id number] 07:49 Condition: stable 07:49 Instructed on the need for transfer, 07:51 Patient left the ED. ll1 Signatures: Edwige Cowart, ELECTRICIAN SUPERVISOR SUBSTATION-C ELECTRICIAN SUPERVISOR SUBSTATION-Kelechi Castaneda RN RN ll1 Darcie Nichole, STACY RN 1 Willow Cooper rv1 Debbie Decker 2 Fiona Craven mb12 Corrections: (The following items were deleted from the chart) 00:41 00:41 URINE DRUG SCREEN+UC.LAB.BRZ drawn and sent. 12 EDMS 07:41 07:39 General: Appears in no apparent distress. Behavior is calm, cooperative, ll1 appropriate for age, ll1
[2024-07-02 07:58] VITALS: O2SAT 97
[2024-07-02 08:01] VITALS: BP 150/89; TEMP 98
--- NOTE | 2024-07-02 12:09 | EKG ---
Test Date: 2024-07-02 Test Time: 00:48:57 Director Of Retail Merchandising: MB MEASUREMENT RESULTS: Intervals: Rate: 91 FL: 142 QRSD: 86 QT: 328 QTc: 403 [place]: P: FL: 142 QRS: 131 T: 118 INTERPRETIVE STATEMENTS: Suspect arm lead reversal, interpretation assumes no reversal Normal sinus rhythm with sinus arrhythmia Lateral infarct, age undetermined Abnormal ECG Compared to ECG 06/23/2023 20:43:05 Myocardial infarct finding now present Left ventricular hypertrophy no longer present Early repolarization no longer present Electronically Signed On 07-02-24 12:08:11 CDT by Gera Mathias
== END 2024-07-02 07:51 ==
LOC: ER 23:51
DX: F29 Unspecified psychosis not due to a substance or known physiological condition (principal); Z72.0 Tobacco use
CPT/HCPCS: 93005; 85025; 80048; 36415; 85610; 80076; 85730; 80307; 96375; 96374; 99285; 80143; 80179; 82077; J2405

== ENCOUNTER 2024-07-14 19:04 | Emergency (ER) | payer OTHER, SELFPAY ==
--- OUTSIDE RECORDS SUMMARY | 2024-07-14 19:08 | XMS REPORT | Continuity of Care Document ---
Author Name Unknown Address [address] [place] [address] [facility] [place] Address 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 Phone [facility] Physician JODIE NICE Attending Clinician Unavailable JODIE NICE Attending Clinician Unavailable Jodie Keith Attending Clinician [phone] ALICIA LITTLE Attending Clinician Unavailable MICHELLE RODRIGUEZ Attending Clinician Unavailab WINSTON Becerra Attending Clinician Unavailab marito Paybrayden Payer Name Policy Type Policy Number Effective Date Expirati on Date Source [facility] [id number] 2024-04-11 00:00:00 [facility] JUDY HAN COPAY FOCUS 9 [id number] 2023-08-10 00:00:00 Problems Condition Name Condition Details Condition Category Status Onset Date Resolution Date Last Treatment Date Treating Clinician Comments Source Multiple open fractures of distal phalanx of finger, initial encounter Multiple open fractures of distal phalanx of finger, initial encounter Disease Active 12-03 00:00: 00 [facility] Allergies, Adverse Reactions, Alerts Allergy Name Allergy Type Status Severity Reaction(s) Onset Date Inactive Date Treating Clinician Comments Source Codeine (Not Checked) Propensi ty to adverse reaction to drug Active 11-21 00:00: 00 Jewel Zamudio Codeine Propensi ty to adverse reaction s Active Anaphylaxis 09-02 00:00: 00 Clotilde Bella - Externa l CODEINE DRUG INGREDI Active Swelling 12-03 00:00: 00 [facility] Codeine Propensi ty to adverse reaction s Active Swelling 12-03 00:00: 00 Throat swelling [facility] Social History Social Habit Start Date Stop Date Quantity Comments Source [facility] of tobacco use Cigar Smoker Clotilde Bella - External History of Social function 2021-08-08 00:00:00 2021-08-08 00:00:00 [facility] Tobacco use and exposure 2016-12-03 00:00:00 2016-12-03 00:00:00 Smokeless tobacco non-user [facility] Sex assigned at 1985 00:00:00 1985 00:00:00 [facility] Smoking Status Start Date Stop Date Source Smokes tobacco daily 2023-09-03 00:00:00 Clotilde Bella - External Never smoked tobacco [facility] Medications Ordered Medication Name Filled Medication Name Start Date Stop Date Current Medication? Ordering Clinician Indication Dosage Frequency Signature (SIG) Comments Components Source ondansetron (ZOFRAN-ODT ) disintegrat ing tablet 4 mg 06-26 05:45: 00 06-26 05:19 :00 No 4mg 4 mg, Oral, ONCE, 1 dose, On Sat06/26/24 at 0045, Routine [facility] albuterol (PROVENTIL) 2.5 mg /3 mL (0.083 %) nebulizer solution 2.5 mg 06-26 05:45: 00 06-26 05:22 :00 No 2.5mg 2.5 mg, Inhalation , ONCE NOW, 1 dose, On Sat06/26/24 at 0045, Routine [facility] ipratropium (ATROVENT) 0.02 % nebulizer solution 0.5 mg 06-26 05:45: 00 06-26 05:22 :00 No .5mg 0.5 mg, Inhalation , ONCE NOW, 1 dose, On Sat06/26/24 at 0045, Routine [facility] albuterol sulfate HFA 90 mcg/actuati on aerosol inhaler 06-26 00:00: 00 Yes [id number] 2{puff} Inhale 2 Puffs every 4 (four) hours as needed for Wheezing or Shortness of Breath. [facility] methylPREDN ISolone (MEDROL, MARIELLE,) 4 mg tablets 06-26 00:00: 00 Yes [id number] Take by mouth SEE-INSTRU CTIONS. follow package directions [facility] ondansetron 4 mg disintegrat ing tablet 06-26 00:00: 00 Yes [id number] 4mg Take 1 tablet by mouth every 8 (eight) hours as needed for Nausea and Vomiting (N/V). [facility] Zoloft 100 mg tablet 06-02 00:00: 00 Yes 1mg Jewel Zamudio Seroquel 100 mg tablet 06-02 00:00: 00 Yes 1mg Jewel Zamudio albuterol sulfate HFA 90 mcg/actuati on aerosol inhaler 04-17 00:00: 00 Yes 12mcg/a ctuatio n Jewel Zamudio montelukast 10 mg tablet 2- 00:00: 00 Yes 1mg Jewel Zamudio albuterol sulfate HFA 90 mcg/actuati on aerosol inhaler - 00:00: 00 Yes 1mcg/ac tuation Jewel Zamudio [...] Systolic blood pressure 2024-06-26 05:38:00 120 mm[Hg] [facility] Diastolic blood pressure 2024-06-26 05:38:00 69 mm[Hg] [facility] Heart rate 2024-06-26 05:38:00 78 /min [facility] Body temperature 2024-06-26 05:38:00 36.44 Juani [facility] Respiratory rate 2024-06-26 05:38:00 12 /min [facility] Oxygen saturation in Arterial blood by Pulse oximetry 2024-06-26 05:38:00 100 /min [facility] Body height 2024-06-26 04:44:00 162.6 cm [facility] Body weight 2024-06-26 04:44:00 71.668 kg [facility] BMI 2024-06-26 04:44:00 27.12 kg/m2 [facility] Systolic blood pressure 2023-09-03 19:02:00 132 mm[Hg] Clotilde Seybo ld - External Diastolic blood pressure 2023-09-03 19:02:00 78 mm[Hg] Clotilde Seybo ld - External Heart rate 2023-09-03 19:02:00 70 /min Kelse y Seybold - External Body temperature 2023-09-03 19:02:00 36.78 Juani Clotilde Seybold - External Respiratory rate 2023-09-03 19:02:00 18 /min Clotilde Beckfordybold - External Body height 2023-09-03 19:02:00 165.1 cm Sharlene ey Seybold - External Body weight 2023-09-03 19:02:00 62.596 kg Sharlene ey Seybold - External BMI 2023-09-03 19:02:00 22.96 kg/m2 Sharlene ey Seybold - External Oxygen saturation in Arterial blood by Pulse oximetry 2023-09-03 19:02:00 98 /min Clotilde Loveo ld - External Weight Measured 2024-04-17 14:21:00 [...] End Date/Time Encounter Type Admission Type Attending [facility] Care Department Encounter ID Source 2024-06-25 23:48:00 2024-06-26 00:49:00 Emergency X JODIE NICE [facility] E[facility] [id number] [facility] 2024-06-25 23:48:00 2024-06-26 00:49:00 Emergency Jodie Nice [facility] [id number] [facility] 2024-06-24 17:04:50 2024-06-24 17:04:50 Outpatient SFA SFA [id number] Jweel Zamudio 2024-06-24 00:00:00 2024-06-24 00:00:00 Outpatient Visit SFA [id number] Jewel Zamudio 2024-06-02 14:07:50 2024-06-02 14:07:50 Outpatient SFA SFA [id number] Jewel Zamudio 2024-04-18 09:28:00 2024-04-18 09:28:00 Outpatient SFA SFA [id number] Jewel Zamudio 2024-04-17 14:17:32 2024-04-17 14:17:32 Outpatient SFA SFA [id number] Jewel Zamudio 2024-04-17 00:00:00 2024-04-17 00:00:00 Outpatient Visit SFA [id number] Jewel Zamudio 2024-01-27 15:30:00 2024-01-27 15:30:00 Outpatient ALICIA LITTLE CLOTILDE CRAWLEY [id number] [facility] 2023-11-26 13:43:51 2023-11-26 13:43:51 Outpatient SFA SFA [id number] Jewel Zamudio 2023-11-22 10:22:57 2023-11-22 10:22:57 Outpatient SFA SFA [id number] Jewel Zamudio 2023-11-21 14:45:00 2023-11-21 14:45:00 Outpatient MICHELLE RODRIGUEZ [id number] [facility] 2023-11-11 00:00:00 2023-11-11 00:00:00 Outpatient WINSTON CAMACHO [id number] [facility] 2023-10-03 11:30:00 2023-10-03 11:30:00 Outpatient WINSTON CAMACHO [id number] [facility] 2023-09-03 14:00:00 2023-09-03 14:00:00 Outpatient DOUGWINSTON [id number] [facility] 2023-08-13 10:00:00 2023-08-13 10:00:00 Outpatient WINSTON CAMACHO [id number] [facility] Results Test Description Test Time Test [...] test code = 3514) NON-REACTIVE Jewel ZamudioLIPID [id number] 00:40:10* Test Item Value Reference Range Interpretation [...] SPECIMENS. FOR MOREINFORMATION, SEE CLIENT ANNOUNCEMENT AT [email or web address] RISK RATIO LDL/HDL (test code = 223) 1.79 RATIO <3.55 COMPREHENSIVE METABOLIC [id number] 00:40:10* Test Item Value Reference Range Interpretation Comme nts GLUCOSE (test code = 2216) 82 MG/DL 70-99 BUN (test code = 2207) 15 MG/DL 6-20 CREATININE (test code = 2214) 1.32 MG/DL 0.80-1.40 eGFR (2020 CKD-EPI) (test co de = 82388) 71 ML/MIN/1.73 >60 CALC BUN/CREAT (test code [...] code = 2219) 22 U/L 5-50 LIPID [id number] 00:00:00* Test Item Value Reference Range Interpretation Comme nts CHOLESTEROL (test code = 2210) 204 MG/DL TRIGLYCERIDES (test code = 2232) 97 MG/DL HDL CHOLESTEROL (test code = 2220) 66 MG/DL CALC LDL CHOL (test code = 2237) 118 MG/DL RISK RATIO LDL/HDL (test cod e = 2238) 1.79 RATIO Jewel ZamudioCOMPREHENSIVE METABOLIC [id number] 00:00:00* Test Item Value Reference Range Interpretation Comme nts GLUCOSE (test code = 2217) 82 MG/DL BUN (test code = 2208) 15 MG/DL CREATININE (test code = 2214) 1.32 MG/DL eGFR (2020 CKD-EPI) (test co de = 31249) 71 ML/MIN/1.73 CALC BUN/CREAT (test code = [...] = 2219) 22 U/L Jewel Allen AustinLIPID [id number] 00:00:00* Test Item Value Reference Range Interpretation Comme nts CHOLESTEROL (test code = 2210) 204 MG/DL TRIGLYCERIDES (test code = 2232) 97 MG/DL HDL CHOLESTEROL (test code = 2220) 66 MG/DL CALC LDL CHOL (test code = 2237) 118 MG/DL RISK RATIO LDL/HDL (test cod e = 2238) 1.79 RATIO Jewel ZamudioCOMPREHENSIVE METABOLIC [id number] 00:00:00* Test Item Value Reference Range Interpretation Comme nts GLUCOSE (test code = 2217) 82 MG/DL BUN (test code = 2208) 15 MG/DL CREATININE (test code = 2214) 1.32 MG/DL eGFR (2020 CKD-EPI) (test co de = 98634) 71 ML/MIN/1.73 CALC BUN/CREAT (test code = [...] gait in stable condition. Lyssa Pelayo RN [facility] 2024-06-25 23:43:20 Pt arrived ambulatory without assist. Pt with him, okay to discuss medical care in front of her. 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 Monie Hoover RN [facility]2025-02-07 00:00:00 [facility]
[2024-07-14] MEDS ORDERED: METOCLOPRAMIDE 10 MG/2mL INJ ONE (20:12)
[2024-07-14] MEDS ORDERED: KETOROLAC 30 MG/ML INJ ONE (20:12)
[2024-07-14] MEDS ORDERED: DIPHENHYDRAMINE 50 MG/ML VIAL ONE (20:12)
[2024-07-14] MEDS ORDERED: NA CHLORIDE 0.9% 1,000 ML ONE (20:12)
[2024-07-14] MEDS ORDERED: dexAMETHasone 10 MG/ML VIAL ONE (20:12)
--- NOTE | 2024-07-14 21:16 | ER ---
Nurse's Notes [facility] Name: Elmer Sanderson Age: 39 yrs Sex: Male : 1985 Arrival Date: 07/14/2024 Time: 19:04 Bed 12 Private MD: Diagnosis: Headache Presentation: 07/14 19:15 Chief complaint: Patient states: headaches that started last night. Patient states he cp4 has taken ibuprofen with no relief. Coronavirus screen: Client denies travel out of the [place] in the last 14 days. At this time, the client does not indicate any symptoms associated with coronavirus-19. Ebola Screen: Patient negative for fever greater than or equal to 101.5 degrees Fahrenheit, and additional compatible Ebola Virus Disease symptoms Patient denies exposure to infectious person. Patient denies travel to an Ebola-affected area in the 21 days before illness onset. No symptoms or risks identified at this time. Initial Sepsis Screen: Does the patient meet any 2 criteria? No. Patient's initial sepsis screen is negative. Does the patient have a suspected source of infection? No. Patient's initial sepsis screen is negative. Risk Assessment: Do you want to hurt yourself or someone else? Patient reports no desire to harm self or others. Onset of symptoms was July 13, 2024. 19:15 Method Of Arrival: Ambulatory [facility] 19:15 Acuity: JANICE 3 cp4 Triage Assessment: 19:17 Headache History: The patient has had previous headaches and this one is similar to cp4 previous episodes. General: Appears in no apparent distress. uncomfortable, Behavior is calm, cooperative, appropriate for age. Pain: Pain currently is 10 out of 10 on a pain scale. Pain began 1 day ago. Also complains of nausea, photophobia. Neuro: Level of Consciousness is awake, alert, obeys commands, Oriented to person, place, time, situation. Historical: - Allergies: 19:17 Codeine; cp4 - Home Meds: 19:17 Seroquel Oral [Active]; cp4 - PMHx: 19:17 Anxiety; Asthma; depressive disorder; ibs; insomnia; cp4 - Immunization history:: Adult Immunizations up to date. - Infectious Disease History:: Denies. - Social history:: Smoking status: Reported history of juuling and/or vaping. Screenin:15 [facility] ED Fall Risk Assessment (Adult) History of falling in the last 3 months, br2 including since admission No falls in past 3 months (0 pts) Confusion or Disorientation No (0 pts). [facility] ED Fall Risk Assessment (Adult) History of falling in the last 3 months, including since admission Intoxicated or Sedated No (0 pts) Impaired Gait No (0 pts) Mobility Assist Device Used No (0 pt) Altered Elimination No (0 pt) Score/Fall Risk Level 0 - 2 = Low Risk. Abuse screen: Denies threats or abuse. Denies injuries from another. Nutritional screening: No deficits noted. Tuberculosis screening: No symptoms or risk factors identified. Assessment: 20:20 Reassessment: Patient and/or family updated on plan of care and expected duration. Pain br2 level reassessed. Patient is alert, oriented x 3, equal unlabored respirations, skin warm/dry/pink. General: Appears in no apparent distress. uncomfortable, Behavior is calm, cooperative. Pain: Complains of pain in forehead, left side of the back of head, left temporal area, left occipital area and right temporal area Pain currently is 10 out of 10 on a pain scale. Neuro: Level of Consciousness is awake, alert, obeys commands, Oriented to person, place, time, situation. 21:11 Reassessment: Patient and/or family updated on plan of care and expected duration. Pain br2 level reassessed. Patient is alert, oriented x 3, equal unlabored respirations, skin warm/dry/pink. Patient states feeling better. Patient states symptoms have improved. Vital Signs: 19:15 BP 138 / 92; Pulse 82; Resp 18; Temp 98.3; Pulse Ox 100% ; Weight 68.04 kg; Height 5 cp4 ft. 5 in. ; Pain 10/10; 21:20 BP 130 / 84; Pulse 80; Resp 18; Temp 97.1; Pulse Ox 100% ; Pain 0/10; br2 19:15 Body Mass Index 24.96 (68.04 kg, 165.1 cm) cp4 19:15 Pain Scale: Adult cp4 21:20 Pain Scale: Adult br2 [place] Coma Score: 21:15 Eye Response: spontaneous(4). Motor Response: obeys commands(6). Verbal Response: kb oriented(5). Total: 15. ED Course: 19:07 Patient arrived in ED. gm2 19:12 Edwige Cowart FNP-C is [facility]. kb 19:13 Esdras Cates MD is Attending Physician. kb 19:15 Placed in gown. Bed in low position. Call light in reach. Side rails up X 1. Provided br2 Education on: PLAN OF CARE. 19:17 Triage completed. cp4 19:17 Arm band placed on right wrist. Patient placed in waiting room. cp4 20:25 Chantale Larson, STACY is Primary Nurse. br2 20:25 Inserted saline lock: 20 gauge in right antecubital area, using aseptic technique. br2 Blood collected. Flushed with 10 mL NS. 21:26 No provider procedures requiring assistance completed. intact, bleeding controlled, No br2 redness/swelling at site. Pressure dressing applied. Administered Medications: 20:24 Drug: metoCLOPramide IVP 10 mg IVP once; over 1 to 2 minutes Route: IVP; Site: right br2 antecubital; 21:00 Follow up: Response: No adverse reaction br2 20:24 Drug: diphenhydrAMINE IVP 25 mg IVP once Route: IVP; Site: right antecubital; br2 21:00 Follow up: Response: No adverse reaction br2 20:24 Drug: Ketorolac IVP 15 mg IVP once Route: IVP; Site: right antecubital; br2 21:00 Follow up: Response: No adverse reaction br2 20:24 Drug: Decadron - Dexamethasone IVP 10 mg IVP once Route: IVP; Site: right antecubital; br2 21:00 Follow up: Response: No adverse reaction br2 20:25 Drug: NS 0.9% IV 1000 ml IV at 1 bolus Per protocol; to be given as a bolus over 60 br2 minutes Route: IV; Rate: 1 bolus; Site: right antecubital; 21:30 Follow up: Response: No adverse reaction; IV Status: Completed infusion; IV Intake: br2 1000ml Intake: 21:30 IV: 1000ml; Total: 1000ml. br2 Outcome: 21:16 Discharge ordered by . kb 21:26 Discharged to home ambulatory, br2 21:26 Condition: improved 21:26 Discharge instructions given to patient, Instructed on discharge instructions, follow up and referral plans. Demonstrated understanding of instructions, follow-up care, 21:27 Patient left the ED. br2 Signatures: Edwige Cowart, PRASHANTHC SHALE PLANER OPERATOR-Arti Norton cp4 Debbie Decker gm2 Chantale Larson RN RN br2
--- NOTE | 2024-07-14 21:16 | EDPHYS ---
Physician Documentation [facility] Name: Elmer Sanderson Age: 39 yrs Sex: Male : 1985 Arrival Date: 07/14/2024 Time: 19:04 Bed 12 Private MD: ED Physician Esdras Cates HPI: 07/14 21:16 This 39 yrs old Black Male presents to ER via Ambulatory with complaints of Headache. kb 21:16 Patient is a 39-year-old male who presents for headache to left side of his head that kb started yesterday. States he has been having headaches similar to this for the last 2 years. Reports nausea, photophobia. Pain aggravated by light, noise.. Historical: - Allergies: 19:17 Codeine; cp4 - Home Meds: 19:17 Seroquel Oral [Active]; cp4 - PMHx: 19:17 Anxiety; Asthma; depressive disorder; ibs; insomnia; cp4 - Immunization history:: Adult Immunizations up to date. - Infectious Disease History:: Denies. - Social history:: Smoking status: Reported history of juuling and/or vaping. ROS: 21:16 Constitutional: As per HPI kb Exam: 21:16 Constitutional: This is a well developed, well nourished patient who is awake, alert, kb and in no acute distress. Head/Face: Normocephalic, atraumatic. Eyes: Pupils equal round and reactive to light, extra-ocular motions intact. Lids and lashes normal. Conjunctiva and sclera are non-icteric and not injected. Cornea within normal limits. Periorbital areas with no swelling, redness, or edema. ENT: Moist Mucous membranes Cardiovascular: Regular rate Respiratory: Respirations even and unlabored. No increased work of breathing. Talking in full sentences Skin: Warm, dry with normal turgor. Normal color. MS/ Extremity: Pulses equal, no cyanosis. Neurovascular intact. Full, normal range of motion. Neuro: Awake and alert, GCS 15, oriented to person, place, time, and situation. Vital Signs: 19:15 BP 138 / 92; Pulse 82; Resp 18; Temp 98.3; Pulse Ox 100% ; Weight 68.04 kg; Height 5 cp4 ft. 5 in. ; Pain 10/10; 21:20 BP 130 / 84; Pulse 80; Resp 18; Temp 97.1; Pulse Ox 100% ; Pain 0/10; br2 19:15 Body Mass Index 24.96 (68.04 kg, 165.1 cm) cp4 19:15 Pain Scale: Adult cp4 21:20 Pain Scale: Adult br2 [place] Coma Score: 21:15 Eye Response: spontaneous(4). Motor Response: obeys commands(6). Verbal Response: kb oriented(5). Total: 15. MDM: 19:13 Medical Screening Exam initiated kb 21:15 Differential diagnosis: cluster headache, migraine, tension headache. Data reviewed: kb vital signs, nurses notes. Historians other than the Patient: Spouse/Significant Other: spouse. Counseling: I had a detailed discussion with the patient and/or guardian regarding the historical points, exam findings, and any diagnostic results supporting the discharge/admit diagnosis, the need for outpatient follow up, a family practitioner, to return to the emergency department if symptoms worsen or persist or if there are any questions or concerns that arise at home. Response to treatment: the patient's symptoms have resolved after treatment. 07/14 19:21 Order name: IV Start; Complete Time: 20:25 kb Administered Medications: 20:24 Drug: metoCLOPramide IVP 10 mg IVP once; over 1 to 2 minutes Route: IVP; Site: right br2 antecubital; 21:00 Follow up: Response: No adverse reaction br2 20:24 Drug: diphenhydrAMINE IVP 25 mg IVP once Route: IVP; Site: right antecubital; br2 21:00 Follow up: Response: No adverse reaction br2 20:24 Drug: Ketorolac IVP 15 mg IVP once Route: IVP; Site: right antecubital; br2 21:00 Follow up: Response: No adverse reaction br2 20:24 Drug: Decadron - Dexamethasone IVP 10 mg IVP once Route: IVP; Site: right antecubital; br2 21:00 Follow up: Response: No adverse reaction br2 20:25 Drug: NS 0.9% IV 1000 ml IV at 1 bolus Per protocol; to be given as a bolus over 60 br2 minutes Route: IV; Rate: 1 bolus; Site: right antecubital; 21:30 Follow up: Response: No adverse reaction; IV Status: Completed infusion; IV Intake: br2 1000ml Disposition Summary: 07/14/24 21:16 Discharge Ordered Notes: Location: Home kb Condition: Stable kb Diagnosis - Headache kb Followup: kb - With: Emergency Department - When: As needed - Reason: Worsening of condition Followup: kb - With: Private Physician - When: 2 - 3 days - Reason: Recheck today's complaints, Continuance of care, Re-evaluation by your physician Discharge Instructions: - Discharge Summary Sheet kb - General Headache Without Cause, [id number] kb Forms: - Medication Reconciliation Form kb - Antibiotic Education kb - Prescription Opioid Use kb - Patient Portal Instructions kb - Leadership Thank You Letter kb Signatures: Edwige Cowart FNP-C PJ-Arti Norton cp4 Chantale Larson, RN RN br2
[2024-07-15 05:03] VITALS: BP 138/92; TEMP 98.3; O2SAT 100
== END 2024-07-14 21:27 | disposition home or self-care (01) ==
LOC: ER 19:04
DX: R51.9 Headache, unspecified (principal)
CPT/HCPCS: 96361; 96374; 96375; 99284; J1100; J1200; J2765; J7030

== ENCOUNTER 2024-10-29 15:26 | Emergency (ER) | payer OTHER ==
--- OUTSIDE RECORDS SUMMARY | 2024-10-29 15:37 | XMS REPORT | Continuity of Care Document ---
Author Name Unknown Address [address] [facility] [address] [place] [address] [facility] [place] Address [address] [facility] [address] [place] [address] Care Team Providers Care Rn Dialysis Name Role Phone [facility] Of Primary Care Physician JODIE NICE Attending Clinician Unavailable JODIE NICE Attending Clinician Unavailable Jodie Keith Attending Clinician [phone] ALICIA LITTLE Attending Clinician Unavailable MICHELLE RODRIGUEZ Attending Clinician Unavailab WINSTON Becerra Attending Clinician Unavailab marito Paybrayden Payer Name Policy Type Policy Number Effective Date Expirati on Date Source [facility] [id number] 2024-04-11 00:00:00 [facility] JUDY HAN COPAY FOCUS 9 [id number] 2023-08-10 00:00:00 Problems Condition Name Condition Details Condition Category Status Onset Date Resolution Date Last Treatment Date Treating Clinician Comments Source Multiple open fractures of distal phalanx of finger, initial encounter Multiple open fractures of distal phalanx of finger, initial encounter Disease Active 12-03 00:00: 00 [facility] Allergies, Adverse Reactions, Alerts Allergy Name Allergy Type Status Severity Reaction(s) Onset Date Inactive Date Treating Clinician Comments Source Codeine (Not Checked) Propensi ty to adverse reaction to drug Active 11-21 00:00: 00 Jewel Zamudio Codeine Propensi ty to adverse reaction s Active Anaphylaxis 09-02 00:00: 00 Clotilde Bella - Externa l CODEINE DRUG INGREDI Active Swelling 12-03 00:00: 00 [facility] Codeine Propensi ty to adverse reaction s Active Swelling 12-03 00:00: 00 Throat swelling [facility] Social History Social Habit Start Date Stop Date Quantity Comments Source Sexual orientation [facility] History of tobacco use Cigar Smoker Clotilde Bella - External History of Social function 2021-08-08 00:00:00 2021-08-08 00:00:00 [facility] Tobacco use and exposure 2016-12-03 00:00:00 2016-12-03 00:00:00 Smokeless tobacco non-user [facility] Sex assigned at 1985 00:00:00 1985 00:00:00 [facility] Smoking Status Start Date Stop Date Source Smokes tobacco daily 2023-09-03 00:00:00 Clotilde Bella - External Never smoked tobacco [facility] Medications Ordered Medication Name Filled Medication Name Start Date Stop Date Current Medication? Ordering Clinician Indication Dosage Frequency Signature (SIG) Comments Components Source Linzess 145 mcg capsule 10-01 00:00: 00 Yes 1mcg Jewel Zamudio ondansetron 4 mg disintegrat ing tablet 09-29 00:00: 00 Yes 1mg Jewel Zamudio lactulose 10 gram/15 mL oral solution 09-29 00:00: 00 Yes 15gram/ 15 mL Jewel Zamudio sumatriptan 50 mg tablet 09-29 00:00: 00 Yes 1mg Jewel Tiffany Zamudio Seroquel 100 mg tablet 09-09 00:00: 00 Yes 1mg Jewel Tiffany Zamudio fluoxetine 10 mg capsule 09-09 00:00: 00 Yes 1mg Jewel Zamudio Seroquel 100 mg tablet 08-06 00:00: 00 Yes 1mg Jewel Zamudio fluoxetine 10 mg capsule 08-06 00:00: 00 Yes 1mg Jewel Zamudio sumatriptan 50 mg tablet 08-04 00:00: 00 Yes 1mg Jewel Zamudio ondansetron (ZOFRAN-ODT ) disintegrat ing tablet 4 mg 06-26 05:45: 00 06-26 05:19 :00 No 4mg 4 mg, Oral, ONCE, 1 dose, On Sat06/26/24 at 004, Routine [facility] albuterol (PROVENTIL) 2.5 mg /3 mL (0.083 %) nebulizer solution 2.5 mg 06-26 05:45: 00 06-26 05:22 :00 No 2.5mg 2.5 mg, Inhalation , ONCE NOW, 1 dose, On Sat06/26/24 at 44, Routine [facility] ipratropium (ATROVENT) 0.02 % nebulizer solution 0.5 mg 06-26 05:45: 00 06-26 05:22 :00 No .5mg 0.5 mg, Inhalation , ONCE NOW, 1 dose, On Sat06/26/24 at 004, Routine [facility] albuterol sulfate HFA 90 mcg/actuati on aerosol inhaler 06-26 00:00: 00 Yes [id number] 2{puff} Inhale 2 Puffs every 4 (four) hours as needed for Wheezing or Shortness of Breath. [facility] methylPREDN ISolone (MEDROL, MARIELLE,) 4 mg tablets 06-26 00:00: 00 Yes [id number] Take by mouth SEE-INSTRU CTIONS. follow package directions [facility] ondansetron 4 mg disintegrat ing tablet 06-26 00:00: 00 Yes [id number] 4mg Take 1 tablet by mouth every 8 (eight) hours as needed for Nausea and Vomiting (N/V). [facility] Zoloft 100 mg tablet 06-02 00:00: 00 Yes 1mg Jewel Zamudio Seroquel 100 mg tablet 06-02 00:00: 00 Yes 1mg Jewel Zamudio albuterol sulfate HFA 90 mcg/actuati on aerosol inhaler 2-07 00:00: 00 Yes 12mcg/a ctuatio n Jewel Zamudio montelukast 10 mg tablet 2-07 00:00: 00 Yes 1mg Jewel Zamudio albuterol sulfate HFA 90 mcg/actuati on aerosol inhaler - 00:00: 00 Yes 1mcg/ac tuation Jewel Zamudio Zoloft 100 mg tablet - 00:00: 00 Yes 1mg Jewel Zamudio Seroquel 100 mg tablet - 00:00: 00 Yes 1mg Jewel Zamudio Albuterol HFA 108 (90 Base) MCG/ACT IN AERS -15 00:00: 00 Yes INHALE 1 PUFF BY MOUTH EVERY 4-6 HOURS NEEDED FOR BRONCHOSPA SM. Clotilde Bella - Externa l Vital Signs Vital Name Observation Time Observation Value Comments S ourteresa Systolic blood pressure 2024-06-26 05:38:00 120 mm[Hg] [facility] Diastolic blood pressure 2024-06-26 05:38:00 69 mm[Hg] [facility] Heart rate 2024-06-26 05:38:00 78 /min [facility] Body temperature 2024-06-26 05:38:00 36.44 Juani [facility] Respiratory rate 2024-06-26 05:38:00 12 /min [facility] Oxygen saturation in Arterial blood by Pulse oximetry 2024-06-26 05:38:00 100 /min [facility] Body height 2024-06-26 04:44:00 162.6 cm [facility] Body weight 2024-06-26 04:44:00 71.668 kg [facility] BMI 2024-06-26 04:44:00 27.12 kg/m2 [facility] Systolic blood pressure 2023-09-03 19:02:00 132 mm[Hg] Clotilde hollingsworth - External Diastolic blood pressure 2023-09-03 19:02:00 78 mm[Hg] Clotilde hollingsworth - External Heart rate 2023-09-03 19:02:00 70 /min Kelse y Seybold - External Body temperature 2023-09-03 19:02:00 36.78 Juani Clotilde Bella - External Respiratory rate 2023-09-03 19:02:00 18 /min Clotilde Bella - External Body height 2023-09-03 19:02:00 165.1 cm Sharlene Bella - External Body weight 2023-09-03 19:02:00 62.596 kg Sharlene frost Seybold - External BMI 2023-09-03 19:02:00 22.96 kg/m2 Sharlene Bella - External Oxygen saturation in Arterial blood by Pulse oximetry 2023-09-03 19:02:00 98 /min Clotilde Ackerman ld - External BP Systolic 2024-10-01 16:04:00 117 mm[Hg] Step hen F Robb BP Diastolic 2024-10-01 16:04:00 79 mm[Hg] Jaime phen F Robb Weight Measured 2024-10-01 16:04:00 144.40 pounds Jewel Zamudio Height Measured 2024-10-01 16:04:00 64.50 inches Jewel F Robb Body Temperature 2024-10-01 16:04:00 98.30 degrees Jewel F Robb Heart Rate 2024-10-01 16:04:00 89.00 /min Shelia en F Robb Respiratory Rate 2024-10-01 16:04:00 18.00 /min Jewel F Robb BP Systolic 2024-08-04 17:22:00 97 mm[Hg] Step hen F Robb BP Diastolic 2024-08-04 17:22:00 65 mm[Hg] Jaime phen F Robb Weight Measured 2024-08-04 17:22:00 144.00 pounds Jewel F Robb Height Measured 2024-08-04 17:22:00 64.50 inches Jewel F Robb Body Temperature 2024-08-04 17:22:00 98.20 degrees Jewel F Robb Heart Rate 2024-08-04 17:22:00 90.00 /min Shelia en F Robb Respiratory Rate 2024-08-04 17:22:00 18.00 /min Jewel F Robb Weight Measured 2024-04-17 14:21:00 145.00 pounds Jewel F Robb Height Measured 2024-04-17 14:21:00 64.50 inches Jewel Zamudio Body Temperature 2024-04-17 14:21:00 98.20 degrees Jewel Zamudio Heart Rate 2024-04-17 14:21:00 90.00 /min Shelia Zamudio Respiratory Rate 2024-04-17 14:21:00 18.00 /min Jewel Zamudio BP Systolic 2024-04-17 14:21:00 118 mm[Hg] Step hen Tiffany Zamudio BP Diastolic 2024-04-17 14:21:00 78 mm[Hg] Jaime Zamudio Encounters Start Date/Time End Date/Time Encounter Type Admission Type Attending [facility] Care Department Encounter ID Source 2024-10-01 15:58:35 2024-10-01 15:58:35 Outpatient [facility] [id number] Jewel Zamudio 2024-10-01 00:00:00 2024-10-01 00:00:00 Outpatient Visit SFA [id number] Jewel Zamudio 2024-09-29 00:00:00 2024-09-29 00:00:00 Outpatient Visit SFA [id number] Jewel Zamudio 2024-08-06 11:41:01 2024-08-06 11:41:01 Outpatient S[facility] [id number] Jewel Zamudio 2024-08-04 17:17:05 2024-08-04 17:17:05 Outpatient [facility] [id number] Jewel Zamudio 2024-08-04 00:00:00 2024-08-04 00:00:00 Outpatient Visit SFA [id number] Jewel Zamudio 2024-06-25 23:48:00 2024-06-26 00:49:00 Emergency JODIE COLORADO ERICCA [facility] ERT [id number] [facility] 2024-06-25 23:48:00 2024-06-26 00:49:00 Emergency Jodie Nice AT [facility] [id number] [facility] 2024-06-24 17:04:50 2024-06-24 17:04:50 Outpatient SFA [facility] [id number] Jewel Zamudio 2024-06-24 00:00:00 2024-06-24 00:00:00 Outpatient Visit SFA [id number] Jewel Zamudio 2024-06-02 14:07:50 2024-06-02 14:07:50 Outpatient SFA [facility]FA [id number] Jewel Zamudio 2024-04-18 09:28:00 2024-04-18 09:28:00 Outpatient SFA SFA [id number] Jewel Zamudio 2024-04-17 14:17:32 2024-04-17 14:17:32 Outpatient SFA SFA [id number] Jewel Zamudio 2024-04-17 00:00:00 2024-04-17 00:00:00 Outpatient Visit SFA [id number] Jewel Zamudio 2024-01-27 15:30:00 2024-01-27 15:30:00 Outpatient ALICIA LITTLE [id number] [facility] 2023-11-26 13:43:51 2023-11-26 13:43:51 Outpatient SFA SFA [id number] Jewel Zamudio 2023-11-22 10:22:57 2023-11-22 10:22:57 Outpatient SFA SFA [id number] Jewel Zamudio 2023-11-21 14:45:00 2023-11-21 14:45:00 Outpatient MICHELLE RODRIGUEZ [id number] Clotilde Bella 2023-11-11 00:00:00 2023-11-11 00:00:00 Outpatient WINSTON CAMACHO [id number] Clotilde Bella 2023-10-03 11:30:00 2023-10-03 11:30:00 Outpatient WINSTON CAMACHO [id number] Clotilde Bella 2023-09-03 14:00:00 2023-09-03 14:00:00 Outpatient WINSTON CAMACHO [id number] Clotilde Bella 2023-08-13 10:00:00 2023-08-13 10:00:00 Outpatient WINSTON CAMACHO CLOTILDE [id number] Clotilde Bella Results Test Description Test Time Test Comments Results Result Co mments Source HIV 1/2 4TH GEN, RFLX CONF [ADDED]2024-04-21 00:00:00* Test Item Value Reference Range Interpretation Comme nts HIV 1/2 4TH GEN, RFLX CONF ( test code = 3514) NON-REACTIVE Jewel F AustinHIV 1/2 4TH GEN, RFLX CONF [ADDED]2024-04-21 00:00:00* Test Item Value Reference Range Interpretation Comme nts HIV 1/2 4TH GEN, RFLX CONF ( test code = 3514) NON-REACTIVE Jewel F AustinHIV 1/2 4TH GEN, RFLX CONF [ADDED]2024-04-21 00:00:00* Test Item Value Reference Range Interpretation Comme nts HIV 1/2 4TH GEN, RFLX CONF ( test code = 3514) NON-REACTIVE Jewel F AustinHIV 1/2 4TH GEN, RFLX CONF [ADDED]2024-04-21 00:00:00* Test Item Value Reference Range Interpretation Comme nts HIV 1/2 4TH GEN, RFLX CONF ( test code = 3514) NON-REACTIVE Jewel F AustinHIV 1/2 4TH GEN, RFLX CONF [ADDED]2024-04-21 00:00:00* Test Item Value Reference Range Interpretation Comme nts HIV 1/2 4TH GEN, RFLX CONF ( test code = 3514) NON-REACTIVE Jewel F AustinLIPID [id number] 00:40:10* Test Item Value Reference Range Interpretation Comme nts CHOLESTEROL (test code = 2210) 204 MG/DL <200 H TRIGLYCERIDES (test code = 2232) 97 MG/DL <150 HDL CHOLESTEROL (test code = 2220) 66 MG/DL >39 CALC LDL CHOL (test code = 223) 118 MG/DL <100 H NOTE: CALCULATED LDL IS BASED ON ADORE-WILLIAMSON METHOD WHICHINCLUDES ADJUSTABLE TRIGLYCERIDE:VLDL CHOLESTEROL RATIO.THIS FACTOR VARIES BY MEASURED TRIGLYCERIDE AND NON-HDLCHOLESTEROL CONCENTRATIONS WITH INCREASED CALCULATED LDL SEENIN HIGHER TRIGLYCERIDE OR LOWER NON-HDL SPECIMENS. FOR MOREINFORMATION, SEE CLIENT ANNOUNCEMENT AT [email or web address] RISK RATIO LDL/HDL (test code = 223) 1.79 RATIO <3.55 COMPREHENSIVE METABOLIC [id number] 00:40:10* Test Item Value Reference Range Interpretation Comme nts GLUCOSE (test code = 2216) 82 MG/DL 70-99 BUN (test code = 2207) 15 MG/DL 6-20 CREATININE (test code = 2214) 1.32 MG/DL 0.80-1.40 eGFR (2020 CKD-EPI) (test co de = 26913) 71 ML/MIN/1.73 >60 CALC BUN/CREAT (test code [...] RATIO 1.0-2.6 BILIRUBIN, TOTAL (test code = 220) <0.2 MG/DL <=1.2 ALKALINE PHOSPHATASE (test code = 2204) 93 U/L 40-117 AST (test code = 2218) 22 U/L 9-50 ALT (test code = 2219) 22 U/L 5-50 LIPID [id number] 00:00:00* Test Item Value Reference Range Interpretation Comme nts CHOLESTEROL (test code = 2210) 204 MG/DL TRIGLYCERIDES (test code = 2232) 97 MG/DL HDL CHOLESTEROL (test code = 2220) 66 MG/DL CALC LDL CHOL (test code = 2237) 118 MG/DL RISK RATIO LDL/HDL (test cod e = 2238) 1.79 RATIO Jewel ZamudioCOMPREHENSIVE METABOLIC [id number] 00:00:00* Test Item Value Reference Range Interpretation Comme nts GLUCOSE (test code = 2217) 82 MG/DL BUN (test code = 2208) 15 MG/DL CREATININE (test code = 2214) 1.32 MG/DL eGFR (2020 CKD-EPI) (test co de = 87811) 71 ML/MIN/1.73 CALC BUN/CREAT (test code = [...] = 2219) 22 U/L Jewel Allen AustinLIPID [id number] 00:00:00* Test Item Value Reference Range Interpretation Comme nts CHOLESTEROL (test code = 2210) 204 MG/DL TRIGLYCERIDES (test code = 2232) 97 MG/DL HDL CHOLESTEROL (test code = 2220) 66 MG/DL CALC LDL CHOL (test code = 2237) 118 MG/DL RISK RATIO LDL/HDL (test cod e = 2238) 1.79 RATIO Jewel ZamudioCOMPREHENSIVE METABOLIC [id number] 00:00:00* Test Item Value Reference Range Interpretation Comme nts GLUCOSE (test code = 2217) 82 MG/DL BUN (test code = 2208) 15 MG/DL CREATININE (test code = 2214) 1.32 MG/DL eGFR (2020 CKD-EPI) (test co de = 39321) 71 ML/MIN/1.73 CALC BUN/CREAT (test code = [...] code = 2219) 22 U/L Jewel Tiffany LewisvilleLIPID [id number] 00:00:00* Test Item Value Reference Range Interpretation Comme nts CHOLESTEROL (test code = 2210) 204 MG/DL TRIGLYCERIDES (test code = 2232) 97 MG/DL HDL CHOLESTEROL (test code = 2220) 66 MG/DL CALC LDL CHOL (test code = 2237) 118 MG/DL RISK RATIO LDL/HDL (test cod e = 2238) 1.79 RATIO Jewel F RobbCOMPREHENSIVE METABOLIC [id number] 00:00:00* Test Item Value Reference Range Interpretation Comme nts GLUCOSE (test code = 2217) 82 MG/DL BUN (test code = 2208) 15 MG/DL CREATININE (test code = 2214) 1.32 MG/DL eGFR (2020 CKD-EPI) (test co de = 22102) 71 ML/MIN/1.73 CALC BUN/CREAT (test code = [...] code = 2219) 22 U/L Jewel Allen [place] [id number] 00:00:00* Test Item Value Reference Range Interpretation Comme nts CHOLESTEROL (test code = 2210) 204 MG/DL TRIGLYCERIDES (test code = 2232) 97 MG/DL HDL CHOLESTEROL (test code = 2220) 66 MG/DL CALC LDL CHOL (test code = 2237) 118 MG/DL RISK RATIO LDL/HDL (test cod e = 2238) 1.79 RATIO Jewel ZamudioCOMPREHENSIVE METABOLIC [id number] 00:00:00* Test Item Value Reference Range Interpretation Comme nts GLUCOSE (test code = 2217) 82 MG/DL BUN (test code = 2208) 15 MG/DL CREATININE (test code = 2214) 1.32 MG/DL eGFR (2020 CKD-EPI) (test co de = 94464) 71 ML/MIN/1.73 CALC BUN/CREAT (test code = [...] (test code = 2219) 22 U/L Jewel ZamudioLIPID [id number] 00:00:00* Test Item Value Reference Range Interpretation Comme nts CHOLESTEROL (test code = 2210) 204 MG/DL TRIGLYCERIDES (test code = 2232) 97 MG/DL HDL CHOLESTEROL (test code = 2220) 66 MG/DL CALC LDL CHOL (test code = 2237) 118 MG/DL RISK RATIO LDL/HDL (test cod e = 2238) 1.79 RATIO Jewel ZamudioCOMPREHENSIVE METABOLIC [id number] 00:00:00* Test Item Value Reference Range Interpretation Comme nts GLUCOSE (test code = 2217) 82 MG/DL BUN (test code = 2208) 15 MG/DL CREATININE (test code = 2214) 1.32 MG/DL eGFR (2020 CKD-EPI) (test co de = 77655) 71 ML/MIN/1.73 CALC BUN/CREAT (test code = [...] (test code = 2219) 22 U/L Jewel Zamudio Notes Date/Time Note Provider Source Jewel Martinez [facility]2025-07-22 00:00:00 Jewel Martinez [facility]2025-05-27 00:00:00 Jewel Martinez [facility]2025-04-18 00:47:16 Patient given discharge instructions, and verbalized no further concerns or questions. Skin p/w/d, rr equal and non labored. A&Ox4. Ambulated independently with a steady gait in stable condition. Lyssa Pelayo [id number] 23[facility]43[facility]20 Pt arrived ambulatory without assist. Pt with him, okay to discuss medical care in front of her. 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 Monie Hoover [id number] 00:00:00 [facility]2025-02-07 00:00:00 [facility]
[2024-10-29 18:53] LABS: Absolute Lymphocytes (CBC) 1.3 K/uL (0.7-4.9); Hematocrit 36.5 % (39.6-49.0); Hemoglobin 12.1 g/dL (13.6-17.9); MCH 31.7 pg (27.0-35.0); MCHC 33.3 g/dL (32.0-36.0); MCV 95.1 fL (80-100); MPV 7.6 fL (7.6-11.3); Nucleated RBC Absolute Count 0.0 (0-0); Nucleated Red Blood Cells % 0.1 % (0-0); RBC Red Blood Cell Count 3.83 M/uL (4.33-5.43); White Blood Count 6.00 thou/uL (4.3-10.9)
[2024-10-29] MEDS ORDERED: ONDANSETRON 4 MG/2 ML VIAL ONE ×2 (18:56→20:21)
[2024-10-29] MEDS ORDERED: MORPHINE 4 MG/ML SYR ONE ×2 (18:56→20:51)
[2024-10-29] MEDS ORDERED: NA CHLORIDE 0.9% 1,000 ML ONE (18:57)
[2024-10-29 19:25] LABS: ALT/SGPT 34.0 U/L (16-61); AST/SGOT 29.0 U/L (15-37); Albumin 3.6 g/dL (3.4-5.0); Albumin/Globulin Ratio 1.2 (1.1-1.8); Alkaline Phosphatase 71.0 U/L (45-117); Anion Gap 4.2 mEq/L (5.0-15.0); BUN Blood Urea Nitrogen 10.0 mg/dL (7-18); Globulin 3.0 g/dL (2.3-3.5); Glucose Level 85.0 mg/dL (74-106); Lipase 47.0 U/L (13-75); Potassium 4.2 mEq/L (3.5-5.1)
[2024-10-29 19:59] LABS: Urine Microscopic Reflex YN NO UMIC
--- NOTE | 2024-10-29 20:49 | RAD REPORT ---
EXAMINATION: Abdomen Pelvis W Contrast CLINICAL INDICATION: Male, 39 years old.right lower abdomen pain TECHNIQUE: CT abdomen and pelvis was performed, after the administration of IV contrast, as per [facility]. Axial, sagittal and coronal reconstructions were obtained. One or more of the following dose reduction techniques were used: Automated exposure control, adjustment of the mA and/o r kV according to patient size, and/or iterative reconstruction. Unless otherwise specified, incidental findings do not require dedicated imaging follow-up. [id number]. COMPARISON: 09/12/2024 FINDINGS: LOWER CHEST: No acute process identified.No significant pericardial effusion. UPPER GI: No significant abnormality. LIVER: No significant focal abnormality. GALLBLADDER/BILE DUCTS: No biliary ductal dilatation.? PANCREAS: No mass, ductal dilation, or seferino-pancreatic fluid. SPLEEN: Unremarkable. ADRENALS: No adrenal masses. KIDNEYS AND URETERS: No hydronephrosis.No suspicious renal mass.Nonobstructing renal calculi.No urete ral calculi. ABDOMINAL AORTA AND OTHER VESSELS: Normal caliber aorta and IVC. PERITONEUM: No abnormal free fluid. No free air. LYMPH NODES: No pathologic lymphadenopathy. ABDOMINAL WALL: Unremarkable SMALL BOWEL/COLON: Small bowel has normal course and caliber. No colonic wall thickening or pericolon ic inflammatory changes.Normal appendix. URINARY BLADDER: Underdistended but grossly unremarkable. REPRODUCTIVE ORGANS: No pathologic process. MUSCULOSKELETAL: No acute or suspicious osseous abnormality. ADDITIONAL FINDINGS: None. IMPRESSION: No acute findings within the abdomen or pelvis. No appendicitis. Bilateral nonobstructing renal calculi.
[2024-10-29] MEDS ORDERED: DIPHENHYDRAMINE 50 MG/ML VIAL ONE (20:51)
[2024-10-29] MEDS ORDERED: FAMOTIDINE 20 MG/2 ML VIAL IV ONE (21:01)
[2024-10-29] MEDS ORDERED: KETOROLAC 30 MG/ML INJ ONE (21:06)
--- NOTE | 2024-10-29 21:30 | EDPHYS ---
Physician Documentation [facility] Name: Elmer Sanderson Age: 39 yrs Sex: Male : 1985 Arrival Date: 10/29/2024 Time: 15:26 Bed 13 Private MD: ED Physician Mateusz Leyva HPI: 10/29 16:45 This 39 yrs old Black Male presents to ER via Ambulatory with complaints of Abdominal cp Pain. 16:45 The patient presents with abdominal pain that is diffuse, worse RLQ. cp 16:45 Onset: The symptoms/episode began/occurred today. Associated signs and symptoms: cp Pertinent positives: intermittent blood in stool for months, Pertinent negatives: constipation, diarrhea, fever, vomiting. The symptoms are described as constant. 16:45 Severity of pain: in the emergency department the pain is unchanged despite home cp interventions. 16:45 Patient reports history of appendicitis with appendix rupture that was treated with cp antibiotics and non-surgically. Patient reports he was unable to f/u to have appendix surgically removed due to insurance. Historical: - Allergies: 16:33 Codeine; me1 - PMHx: 16:33 Anxiety; Asthma; depressive disorder; ibs; insomnia; Migraine; Seizure; appendicitis me1 (Unknown); - PSHx: 16:33 None; me1 - Immunization history:: Adult Immunizations up to date. - Infectious Disease History:: Denies. - Social history:: Smoking status: Reported history of juuling and/or vaping. ROS: 16:50 Constitutional: Negative for body aches, chills, fever, cp 16:50 Eyes: Negative for injury, pain, redness, and discharge, cp 16:50 ENT: Negative for drainage from ear(s), ear pain, sore throat, difficulty swallowing, difficulty handling secretions, 16:50 Abdomen/GI: Positive for abdominal pain, nausea, Negative for vomiting, diarrhea, constipation, 16:50 Cardiovascular: Negative for chest pain, cp 16:50 Respiratory: Negative for cough, shortness of breath, wheezing, 16:50 Back: Negative for pain at rest, pain with movement, 16:50 Neuro: Negative for altered mental status, dizziness, headache, weakness, 16:50 All other systems are negative, cp Exam: 16:55 Constitutional: The patient appears in no acute distress, alert, awake, non-toxic, well cp developed, well nourished, uncomfortable, 16:55 Head/Face: Normocephalic, atraumatic. cp 16:55 Eyes: Periorbital structures: appear normal, Conjunctiva: normal, no exudate, no injection, Sclera: no appreciated abnormality, Lids and lashes: appear normal, bilaterally, 16:55 ENT: External ear(s): are unremarkable, Nose: is normal, Mouth: Lips: moist, Oral mucosa: moist, Posterior pharynx: Airway: no evidence of obstruction, patent, 16:55 Chest/axilla: Inspection: normal, 16:55 Cardiovascular: Rate: normal, Rhythm: regular, 16:55 Respiratory: the patient does not display signs of respiratory distress, Respirations: normal, no use of accessory muscles, no retractions, labored breathing, is not present, Breath sounds: are clear throughout, no decreased breath sounds, no stridor, no wheezing, 16:55 Abdomen/GI: Inspection: abdomen appears normal, Bowel sounds: active, all quadrants, Palpation: soft, in all quadrants, moderate abdominal tenderness, in the right lower quadrant, rebound tenderness, is not appreciated, involuntary guarding, is not appreciated, 16:55 Back: pain, is absent, ROM is normal, Vital Signs: 16:31 BP 136 / 88; Pulse 70; Resp 18; Temp 98.6; Pulse Ox 100% ; Weight 68.04 kg; Height 5 me1 ft. 4 in. ; Pain 9/10; 19:07 BP 144 / 100; Pulse 67; Resp 18; Pulse Ox 100% ; Pain 8/10; rg5 20:00 BP 146 / 88; Pulse 79; Resp 18; Pulse Ox 100% ; rg5 21:00 BP 128 / 100; Pulse 78; Resp 18; Pulse Ox 100% ; rg5 16:31 Body Mass Index 25.75 (68.04 kg, 162.56 cm) me1 16:31 Pain Scale: Adult me1 19:07 Pain Scale: Adult rg5 MDM: 16:30 Medical Screening Exam initiated kelin 21:28 Data reviewed: vital signs, nurses notes, lab test result(s), radiologic studies, CT cp scan, and as a result, I will discharge patient. 21:28 Differential diagnosis: appendicitis, bowel obstruction, diverticulitis, gastritis, cp non-specific abd pain, Pyelonephritis, Testicular Torsion, Ureterolithiasis, urinary tract infection. I considered the following discharge prescriptions or medication management in the emergency department Medications were administered in the Emergency Department. See MAR. 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 Response to treatment: the patient's symptoms have mildly improved after treatment, and as a result, I will discharge patient. Special discussion: Based on the patient's Hx, exam, and Dx evaluation, there is no indication for emergent surgery or inpatient Tx. It is understood by the patient/guardian that if the Sx's persist or worsen they need to return immediately for re-evaluation. 10/29 16:37 Order name: CBC with Diff; Complete Time: 19:33 cp 10/29 19:33 Interpretation: Normal except: RBC 3.83; HGB 12.1; HCT 36.5. cp 10/29 16:37 Order name: CMP; Complete Time: 19:33 cp 10/29 19:34 Interpretation: Normal except: CL 110; ANION GAP 4.2; GFR 80. cp 10/29 16:37 Order name: Lipase; Complete Time: 19:33 cp 10/29 19:34 Interpretation: Reviewed. cp 10/29 18:16 Order name: UA Rfx Vick Cult if indicated; Complete Time: 20:57 cp 10/29 18:16 Order name: CT Abd/Pelvis - IV Contrast Only; Complete Time: 20:57 cp 10/29 20:58 Interpretation: Report reviewed. cp 10/29 16:37 Order name: IV Saline Lock; Complete Time: 19:05 cp 10/29 16:37 Order name: Labs collected and sent; Complete Time: 19:05 cp 10/29 21:02 Order name: PO challenge; Complete Time: 21:20 cp Administered Medications: 19:00 Drug: NS 0.9% IV 1000 ml IV at 1 bolus Per protocol; to be given as a bolus over 60 rg5 minutes Route: IV; Rate: 1 bolus; Site: right antecubital; 20:32 Follow up: IV Status: Completed infusion; IV Intake: 1000ml rg5 19:00 Drug: Ondansetron IVP 4 mg IVP once; over 2 minutes Route: IVP; Site: right antecubital;rg5 19:41 Follow up: Response: No adverse reaction rg5 19:04 Drug: morphine IVP or IV 4 mg IVP once over 4 mins Route: IVP; Infused Over: 4 mins; rg5 Site: right antecubital; 19:41 Follow up: Response: No adverse reaction; Pain is decreased rg5 20:32 Drug: Ondansetron IVP 4 mg IVP once; over 2 minutes Route: IVP; Site: right antecubital;rg5 20:55 Follow up: Response: No adverse reaction rg5 20:54 Drug: diphenhydrAMINE IVP 25 mg IVP once Route: IVP; Site: right antecubital; rg5 21:21 Follow up: Response: No adverse reaction rg5 20:54 Drug: morphine IVP or IV 4 mg IVP once over 4 mins Route: IVP; Infused Over: 4 mins; rg5 Site: right antecubital; 21:21 Follow up: Response: No adverse reaction; Pain is decreased rg5 21:02 Drug: Famotidine IVP 20 mg IVP once; dilute with 10 mL 0.9% NaCl; give over 2 minutes rg5 Route: IVP; Site: right antecubital; 21:21 Follow up: Response: No adverse reaction rg5 21:11 Drug: Dexamethasone IVP 10 mg IVP once; (not to exceed 40 mg) Route: IVP; Site: right rg5 antecubital; 21:20 Follow up: Response: No adverse reaction rg5 21:12 Drug: Ketorolac IVP 15 mg IVP once Route: IVP; Site: right antecubital; rg5 21:20 Follow up: Response: No adverse reaction; Pain is decreased rg5 Disposition Summary: 10/29/24 21:29 Discharge Ordered Notes: Location: Home cp Problem: an ongoing problem cp Symptoms: have improved cp Condition: Stable cp Diagnosis - Abdominal pain, unspecified cp - Nausea cp Followup: cp - With: Marshal Bowie MD - When: 2 - 3 days - Reason: Recheck today's complaints Discharge Instructions: - Discharge Summary Sheet cp - Abdominal Pain, Adult cp - Nausea, Adult cp Forms: - Medication Reconciliation Form cp - Antibiotic Education cp - Prescription Opioid Use cp - Patient Portal Instructions cp - Leadership Thank You Letter cp Prescriptions: - Protonix 40 mg Oral Tablet - take 1 tablet ORAL route once daily; 30 tablet; Refills: 0, Product Selection cp Permitted - Zofran 4 mg Oral Tablet - take 1 tablet ORAL route every 12 hours As needed; 20 tablet; Refills: 0, cp Product Selection Permitted - dicyclomine 20 mg Oral tablet - take 1 tablet ORAL route 4 times per day; 30 tablet; Refills: 0, Product cp Selection Permitted Addendum: 10/30/2024 23:34 Co-signature as Attending Physician, Mateusz Leyva MD I agree with the assessment and c rojo plan of care. Signatures: Dispatcher [employer] Mateusz Pereira MD MD cha Page, Corey, PA-C PA-C Ashley Wong, RN RN me1 Kristofer Pratt RN RN rg5 Corrections: (The following items were deleted from the chart) 19:50 10/29 16:45 The patient presents with abdominal pain right lower quadrant, cp cp
--- NOTE | 2024-10-29 21:30 | ER ---
Nurse's Notes [facility] Name: Elmer Sanderson Age: 39 yrs Sex: Male : 1985 Arrival Date: 10/29/2024 Time: 15:26 Bed 13 Private MD: Diagnosis: Abdominal pain, unspecified;Nausea Presentation: 10/29 16:31 Chief complaint: Patient states: diffuse abdominal pain that is worse on the right, me1 started again today with n/v/d and stool is bright red blood. Pain is 9/10 "pressure". Hx of appendicitis but still has appendix. Coronavirus screen: Vaccine status:. Ebola Screen: No symptoms or risks identified at this time. Initial Sepsis Screen: Does the patient meet any 2 criteria? No. Patient's initial sepsis screen is negative. Does the patient have a suspected source of infection? No. Patient's initial sepsis screen is negative. Risk Assessment: Do you want to hurt yourself or someone else? Patient reports no desire to harm self or others. Onset of symptoms was October 29, 2024 at 05:30. 16:31 Method Of Arrival: Ambulatory [facility] 16:31 Acuity: JANICE 3 me1 Historical: - Allergies: 16:33 Codeine; me1 - PMHx: 16:33 Anxiety; Asthma; depressive disorder; ibs; insomnia; Migraine; Seizure; appendicitis me1 (Unknown); - PSHx: 16:33 None; me1 - Immunization history:: Adult Immunizations up to date. - Infectious Disease History:: Denies. - Social history:: Smoking status: Reported history of juuling and/or vaping. Screenin:00 [facility] ED Fall Risk Assessment (Adult) History of falling in the last 3 months, rg5 including since admission No falls in past 3 months (0 pts) Confusion or Disorientation No (0 pts) Intoxicated or Sedated No (0 pts) Impaired Gait No (0 pts) Mobility Assist Device Used No (0 pt) Altered Elimination No (0 pt) Score/Fall Risk Level 0 - 2 = Low Risk Oriented to surroundings, Maintained a safe environment, Hourly rounding (assess needs \\T\\ fall precautionary measures) done. Abuse screen: Denies threats or abuse. Nutritional screening: No deficits noted. Tuberculosis screening: No symptoms or risk factors identified. Assessment: 19:00 General: Appears in no apparent distress. Behavior is calm, cooperative, appropriate rg5 for age. Pain: Complains of pain in abdomen. Neuro: Level of Consciousness is awake, alert, obeys commands, Oriented to person, place, time, situation. Cardiovascular: Patient's skin is warm and dry. Respiratory: Airway is patent Trachea midline Respiratory effort is even, unlabored, Respiratory pattern is regular, symmetrical. GI: Bowel sounds present in left upper quadrant Abd is soft and non tender Reports bloody stool, nausea, vomiting. : No signs and/or symptoms were reported regarding the genitourinary system. EENT: No signs and/or symptoms were reported regarding the EENT system. Derm: Skin is intact, Skin is dry, Skin is normal. Musculoskeletal: Circulation, motion, and sensation intact. Range of motion: intact in all extremities. 20:00 Reassessment: Patient and/or family updated on plan of care and expected duration. Pain rg5 level reassessed. Patient is alert, oriented x 3, equal unlabored respirations, skin warm/dry/pink. Patient states symptoms have improved. 21:17 Reassessment: Patient and/or family updated on plan of care and expected duration. Pain rg5 level reassessed. Patient is alert, oriented x 3, equal unlabored respirations, skin warm/dry/pink. Patient states symptoms have improved. Vital Signs: 16:31 BP 136 / 88; Pulse 70; Resp 18; Temp 98.6; Pulse Ox 100% ; Weight 68.04 kg; Height 5 me1 ft. 4 in. ; Pain 9/10; 19:07 BP 144 / 100; Pulse 67; Resp 18; Pulse Ox 100% ; Pain 8/10; rg5 20:00 BP 146 / 88; Pulse 79; Resp 18; Pulse Ox 100% ; rg5 21:00 BP 128 / 100; Pulse 78; Resp 18; Pulse Ox 100% ; rg5 16:31 Body Mass Index 25.75 (68.04 kg, 162.56 cm) me1 16:31 Pain Scale: Adult me1 19:07 Pain Scale: Adult rg5 ED Course: 15:28 Patient arrived in ED. im 15:29 [facility] Eddy [facility]. cp 15:29 Mateusz Leyva MD is Attending Physician. cp 16:33 Triage completed. me1 16:33 Arm band placed on Patient placed in waiting room. me1 18:52 Kristofer Pratt, RN is Primary Nurse. rg5 19:00 Patient has correct armband on for positive identification. Bed in low position. Call rg5 light in reach. Side rails up X 1. Door closed. Noise minimized. 19:00 No provider procedures requiring assistance completed. Inserted saline lock: 18 gauge rg5 in right antecubital area, using aseptic technique. Blood collected. Flushed with 10 mL NS. 20:24 CT Abd/Pelvis - IV Contrast Only In Process Unspecified. EDMS 21:26 Marshal Bowie MD is Referral Physician. cp 21:48 IV discontinued, bleeding controlled, No redness/swelling at site. Pressure dressing rg5 applied. 21:49 Provided Education on: post er care. rg5 Administered Medications: 19:00 Drug: NS 0.9% IV 1000 ml IV at 1 bolus Per protocol; to be given as a bolus over 60 rg5 minutes Route: IV; Rate: 1 bolus; Site: right antecubital; 20:32 Follow up: IV Status: Completed infusion; IV Intake: 1000ml rg5 19:00 Drug: Ondansetron IVP 4 mg IVP once; over 2 minutes Route: IVP; Site: right antecubital;rg5 19:41 Follow up: Response: No adverse reaction rg5 19:04 Drug: morphine IVP or IV 4 mg IVP once over 4 mins Route: IVP; Infused Over: 4 mins; rg5 Site: right antecubital; 19:41 Follow up: Response: No adverse reaction; Pain is decreased rg5 20:32 Drug: Ondansetron IVP 4 mg IVP once; over 2 minutes Route: IVP; Site: right antecubital;rg5 20:55 Follow up: Response: No adverse reaction rg5 20:54 Drug: diphenhydrAMINE IVP 25 mg IVP once Route: IVP; Site: right antecubital; rg5 21:21 Follow up: Response: No adverse reaction rg5 20:54 Drug: morphine IVP or IV 4 mg IVP once over 4 mins Route: IVP; Infused Over: 4 mins; rg5 Site: right antecubital; 21:21 Follow up: Response: No adverse reaction; Pain is decreased rg5 21:02 Drug: Famotidine IVP 20 mg IVP once; dilute with 10 mL 0.9% NaCl; give over 2 minutes rg5 Route: IVP; Site: right antecubital; 21:21 Follow up: Response: No adverse reaction rg5 21:11 Drug: Dexamethasone IVP 10 mg IVP once; (not to exceed 40 mg) Route: IVP; Site: right rg5 antecubital; 21:20 Follow up: Response: No adverse reaction rg5 21:12 Drug: Ketorolac IVP 15 mg IVP once Route: IVP; Site: right antecubital; rg5 21:20 Follow up: Response: No adverse reaction; Pain is decreased rg5 Medication: 19:00 VIS not applicable for this client. rg5 Intake: 20:32 IV: 1000ml; Total: 1000ml. rg5 Outcome: 21:29 Discharge ordered by . arline 21:48 Discharged to home ambulatory, rg5 21:48 Condition: stable 21:48 Discharge instructions given to patient, Instructed on discharge instructions, follow up and referral plans. Demonstrated understanding of instructions, follow-up care, medications, Prescriptions given X 3, 21:49 Patient left the ED. rg5 Signatures: Dispatcher [employer] EDIL Mateusz Eddy PA-C PA-C Cher Arrieta Michelle RN RN me1 Kristofer Pratt RN RN rg5
[2024-10-29 22:14] VITALS: TEMP 98.6; O2SAT 100
[2024-10-29 22:20] VITALS: BP 128/100
== END 2024-10-29 21:49 | disposition home or self-care (01) ==
LOC: ER 15:26
DX: R10.9 Unspecified abdominal pain (principal); R11.0 Nausea; F17.290 Nicotine dependence, other tobacco product, uncomplicated
CPT/HCPCS: 96361; 85025; 36415; 81003; 83690; 80053; 74177; 96375; 96374; 99284; Q9967; J1200; J1100; J2405 ×2; J7030